=== PATIENT | female | born 1950 | race Caucasian/White ===

== ENCOUNTER 2019-02-14 14:59 | Inpatient (IN) | payer MEDICARE ==
[~2019-02-14] VITALS: Ht 162.6 cm; Wt 56.1 kg
[2019-02-14] VITALS (18 sets, daily range): BP systolic 101–120; BP diastolic 34–50; BMI 34.4
--- NOTE | ~2019-02-14 | OP ---
PATIENT NAME: MAGDALENA ALVAREZ MEDICAL RECORD: [id number] :[birth year] LOCATION:D.M2 D.2138 ADMISSION DATE:02/14/19 SURGEON: CITLALY HUTCHINS MD DATE OF OPERATION: 02/22/2019 PREOPERATIVE DIAGNOSES: 1. End-stage renal disease. 2. Diabetes mellitus. POSTOPERATIVE DIAGNOSES: 1. End-stage renal disease. 2. Diabetes mellitus. PROCEDURE: 1. Left IJ 23-cm HemoSplit catheter placement. 2. Fluoroscopic interpretation. SURGEON: Citlaly Hutchins MD REPORT OF PROCEDURE: The patient's left neck and chest were prepped and draped in sterile fashion. Using ultrasound guidance, a needle was used to cannulate the left internal jugular vein and a guidewire was advanced. Fluoro was used to advance the wire into good position in the venous system. At this point, a skin incision was made in the neck and also at the left lateral chest. The HemoSplit catheter was tunneled between these 2 incision sites. The dilators were placed over the wires using ultrasound guidance followed by the dilator trocar device. The dilator and wire were removed and the catheter tip was advanced through the trocar. Once the trocar was removed, the catheter tip was positioned in the right atrial superior vena caval junction. The catheter aspirated nonpulsatile dark blood and flushed easily with heparinized saline. We then sutured the catheter in with 3-0 nylons and the skin incisions were closed with subcutaneous 5-0 Monocryl. COMPLICATIONS: None. CONDITION: Stable. ANESTHESIA: General endotracheal. BLOOD LOSS: Minimal. TRANSINT:[id number] Voice Confirmation ID: [id number] DOCUMENT ID: [id number] CITLALY HUTCHINS MD CC: [id number] DICTATION DATE: 02/22/19 0848 SENIOR NETWORK ARCHITECT: 02/22/19 1200 ADM IN [facility] [address] [place] [address]
[2019-02-14] MEDS ORDERED: CATAPRES0.2 MG PO (15:06)
[2019-02-14] MEDS ORDERED: ACETAMINOPHEN500 M1 PO (15:06)
[2019-02-14] MEDS ORDERED: COREG6.25 MG PO (15:07)
[2019-02-14] MEDS ORDERED: GABAPENTIN100 MG PO (15:08)
[2019-02-14] MEDS ORDERED: HYDRALAZINE HCL25 MG PO (15:09)
[2019-02-14] MEDS ORDERED: HCTZ25 MG PO (15:09)
[2019-02-14] MEDS ORDERED: HUMULIN R100 U/ML (15:09)
[2019-02-14] MEDS ORDERED: IMODIUM2 MG (15:10)
[2019-02-14] MEDS ORDERED: JARDIANCE10 MG PO (15:10)
[2019-02-14] MEDS ORDERED: ADVIL200 MG PO (15:10)
[2019-02-14] MEDS ORDERED: LANTUS INSULIN10 ML SC (15:11)
[2019-02-14] MEDS ORDERED: LISINOPRIL40 MG PO (15:11)
[2019-02-14] MEDS ORDERED: NORVASC10 MG PO (15:11)
[2019-02-14] MEDS ORDERED: PRAVACHOL20 MG PO (15:12)
[2019-02-14] MEDS ORDERED: VITAMIN D5000 UNIT PO (15:12)
[2019-02-14] MEDS ORDERED: ZOFRAN4 MG PO (15:13)
[2019-02-14 15:51] LABS: HEMATOCRIT 32.6 % (36.0-48.0); HEMOGLOBIN 10.8 g/dL (12-16); MCH 28.1 pg (26.0-34.0); MCHC 33.1 g/dL (31.0-37.0); MCV 84.9 fL (80.0-100.0); MEAN PLATELET VOLUME 10.6 fL (7.4-10.4); PLATELET COUNT 223 10x3/uL (130-400); RBC 3.84 10x6/uL (4.00-5.40); RDW 15.2 % (11.5-14.5); WBC 23.5 10x3/uL (4.8-10.8)
[2019-02-14 15:57] LABS: ALBUMIN 2.5 g/dL (3.4-5.0); ALKALINE PHOSPHATASE 72 U/L (46-116); ALT (SGPT) 22 U/L (10-68); BILIRUBIN - TOTAL 0.21 mg/dL (0.2-1.3); CALC OSMOLALITY 326 mosm/kg (275-300); CALCIUM 7.3 mg/dL (8.5-10.1); CARBON DIOXIDE 10.6 mmol/L (21.0-32.0); CHLORIDE - SERUM 107 mmol/L (98-107); CREATININE - SERUM 8.4 mg/dL (0.6-1.3); GLUCOSE 120 mg/dL (74-106); POTASSIUM - SERUM 4.5 mmol/L (3.5-5.1); SODIUM 140 mmol/L (136-145); UREA NITROGEN 145 mg/dL (7-18); eGFR NON AFRICAN AMERICAN 5 mL/min (90-120)
[2019-02-14 15:58] LABS: APTT 29.3 SECONDS (22.8-39.4); INR 1.39 (0.85-1.17); PROTIME 16.5 SECONDS (11.6-15.0)
[2019-02-14 16:10] LABS: CKMB 1.5 U/L (0.0-3.6); CREATINE KINASE 25 UL (21-215); TROPONIN-I 0.023 ng/mL (0.000-0.060)
[2019-02-14 16:14] LABS: LYMPHOCYTES 8 % (15-50); MONOCYTES 8 % (2-11); NEUTROPHILS 80 % (40-80); PLATELET ESTIMATE NORMAL
--- NOTE | 2019-02-14 17:09 | NUR ---
1600 PT RECIEVED FROM THE ER VIA STRECHER.. LEVOPHED DRIP IS INFUSING AT 5 MCG.. BP IS 120/45 ON ARRIVAL SR ON MONITOR, PT IS AWAKE AND APPROPRIATE IN HER RESPONSES , LOPEZ CATH IS INLACE FROM THE ER, PIV X2 ON THE RIGHT AC NS INFUSING AND LEVOPHED INTO THE RIGHT HAND. VANC IS HANGING TO BE INFUSED.STARTED AT THIS TIME. 1605TITRATING LEVOPHED SEE IV FLOW SHEET 1615 BS 113 NO INSULIIN COVER 1645 ASSESMENT IS COPLETE AND PT IS DOZING EASILY ROUSED,
--- NOTE | 2019-02-14 19:24 | MORECARE ---
CASE MANAGEMENT DISCHARGE SUMMARY PATIENT: MAGDALENA ALVAREZ UNIT: [id number] ADM DATE: 02/14/19 AGE: 68 : 49 SEX: F ROOM/BED: D.2301 AUTHOR: KELLE BARRON PHYSICIAN: REFERRING PHYSICIAN: BENEDICTO CALLAWAY MD DATE OF SERVICE: 02/14/19 Discharge Plan Patient Name: MAGDALENA ALVAREZ Facility: [facility]:[place] : 1950 Planned Disposition: Nursing Facility [facility] Cert Anticipated Discharge Date: Discharge Date: Expected LOS: Initial Reviewer: [email or web address] Initial Review Date: 02/14/2019 Generated: 02/14/19 8:23 pm Patient Name: MAGDALENA ALVAREZ Page 13527 at 1924 All edits/amendments must be made on the electronic document DICTATION DATE: 02/14/191922 INSURANCE INSTRUCTOR: RADHA 02/14/191922 RPT#: [id number] DC DATE: STATUS: ADM IN [facility] [address] [place] [address] END OF REPORT
--- NOTE | 2019-02-14 19:31 | MORECARE ---
CASE MANAGEMENT DISCHARGE SUMMARY PATIENT: MAGDALENA ALVAREZ UNIT: [id number] ADM DATE: 02/14/19 AGE: 68 : 49 SEX: F ROOM/BED: D.2301 AUTHOR: BEATRICE,DOC PHYSICIAN: REFERRING PHYSICIAN: BENEDICTO CALLAWAY MD DATE OF SERVICE: 02/14/19 Discharge Plan Patient Name: MAGDALENA ALVAREZ Facility: [facility]:[place] : 1950 Planned Disposition: Nursing Facility [facility] Cert Anticipated Discharge Date: Discharge Date: Expected LOS: Initial Reviewer: [email or web address] Initial Review Date: 02/14/2019 Generated: 02/14/19 8:30 pm Comments DCP- Discharge Planning Updated by [email or web address]: Bere Cruz on 02/14/19 6:[address] Patient Name: MAGDALENA ALVAREZ Admission Status: ER Accout number: [id number] Admission Date: 02-14-2019 : 1950 Admission Diagnosis: Attending: BENEDICTO CALLAWAY Current LOS: 1 Anticipated DC Date: Planned Disposition: Nursing Facility [facility] Cert Primary Insurance: MEDICARE IP PART B ONLY Discharge Planning Comments: CM met with patient at bedside. Patient states she lives at assisted in [facility] ([place]) and plans to return there upon discharge. NICA completed for [place] Patient denies any discharge needs at this time. CM will continue to follow and assist as needed with discharge planning / needs. Grand Scribe: Bere Cruz DCPIA - Discharge Planning Initial Assessment Updated by [email or web address]: Bere Cruz on 02/14/19 7:24 pm * Preadmission Environment [facility] * Facility Name [facility]. Mailing Address: [address] [place] [address]. Phone Number?: ?[phone] * ADLs Partial Dependent * List name and contact numbers for known caregivers / representatives who currently or will assist patient after discharge: IJEOMA BENITEZ - GRAND-DAUGHTER- [phone] * Verbal permission to speak to the caregivers and representatives has been obtained from the patient. N/A * Additional services required to return to the preadmission environment? No * Can the patient safely return to the preadmission environment? Yes * Has this patient been hospitalized within the prior 30 days at any hospital? No Last DP export: 02/14/19 6:24 p Patient Name: MAGDALENA ALVAREZ Page 61499 at 1931 All edits/amendments must be made on the electronic document DICTATION DATE: 02/14/191929 MEDICAL TRANSCRIPTIONIST: RADHA 02/14/191929 RPT#: [id number] DC DATE: STATUS: ADM IN [facility] [address] [place] [address] END OF REPORT
--- NOTE | 2019-02-14 20:06 | NUR ---
PATIENT AWAKE AND ALERT ABLE TO VOICE NEEDS AND WANTS TO STAFF. IV IN PLACE AND PATEN WITH NS AT 125 ML/HR. TELEMETRY IN PLACE. V/S 105/39, P 77, R 18. O2 98% ON RA. CONSULT ON CHART FOR DR. DUONG OFFICE CALLED , RETRUN FROM DR. FORTE ROTARY SOIL STABILIZER AND RETRUNED WENT OVER LABS NEW ORDER FOR ONE [id number]. D5W WITH 150 BICARB AT 125 PATIENT IN FORMED PHARMACY CALLED ORDER PLACED AWATTING FLUIDS.
--- NOTE | 2019-02-14 23:11 | NUR ---
PATIENT RESTING IN BED RESP. EVEN AND UNLABORED, WATER AND CALL LIGHT IN REACH. SIDE RAILS UP X 2. IV IN RIGHT AC PATIENT , IV IN RIGHT HAND PATIENT WITH D5W WITH SODIUM BICARBONATE AT 125. SCD'S IN PLACE.
[2019-02-15] VITALS (26 sets, daily range): BP systolic 87–166; BP diastolic 34–64; BMI 34.3
--- NOTE | 2019-02-15 01:15 | NUR ---
RESTING IN BED NO S/S OF DISTRESS. SCANT AMOUNT OF LIQUID STOOL IN BEDPAN. STATED NO FUTHER NEEDS.
--- NOTE | 2019-02-15 03:07 | NUR ---
RESTING IN BED WITH NO NEEDS NOTED OR STATED NO S/S OF DISTRESS. CALL LIGHT IN REACH.
[2019-02-15 04:23] LABS: BASOPHILS 0 % (0-2); EOSINOPHILS 0.1 % (0-7); HEMATOCRIT 29.2 % (36.0-48.0); HEMOGLOBIN 9.7 g/dL (12-16); IMMATURE GRANULOCYTES 0.3 % (0-5); LYMPHOCYTES 4.3 % (15-50); MCH 27.8 pg (26.0-34.0); MCHC 33.2 g/dL (31.0-37.0); MCV 83.7 fL (80.0-100.0); MEAN PLATELET VOLUME 10.4 fL (7.4-10.4); MONOCYTES 9.8 % (2-11); NEUTROPHILS 85.5 % (40-80); PLATELET COUNT 199 10x3/uL (130-400); RBC 3.49 10x6/uL (4.00-5.40); RDW 15.3 % (11.5-14.5)
[2019-02-15 04:27] LABS: WBC 17.4 10x3/uL (4.8-10.8)
[2019-02-15 04:48] LABS: ALBUMIN 2.2 g/dL (3.4-5.0); ANION GAP 24.8 mmol/L (8-16); BILIRUBIN - TOTAL 0.2 mg/dL (0.2-1.3); CALCIUM 7.3 mg/dL (8.5-10.1); CREATININE - SERUM 8.9 mg/dL (0.6-1.3); MAGNESIUM - SERUM 1.6 mg/dL (1.8-2.4); POTASSIUM - SERUM 4.2 mmol/L (3.5-5.1); PROTEIN - SERUM 6.3 g/dL (6.4-8.2); URIC ACID 10.1 mg/dL (2.6-7.2)
[2019-02-15 04:53] LABS: CARBON DIOXIDE 13.4 mmol/L (21.0-32.0); PHOSPHOROUS 10.5 mg/dL (2.5-4.9)
--- NOTE | 2019-02-15 05:09 | NUR ---
LAB CALLED WITH PHOSPHORUS LEVEL OF 10.[address] PHILLIP, CLOUD OPERATIONS ENGINEER VIJAYA SESAY RETRUNED STATED TO CALL RENAL DR DUONG OR KISHA AT ABOUT 0630AM TO INFORM WITH NO NEW ORDERS AT THIS TIME.
--- NOTE | 2019-02-15 05:52 | NUR ---
RESTING IN BED FOR BEDPAN AND WAS ASSISTED ON.
--- NOTE | 2019-02-15 07:00 | NUR ---
DR. BEARD IN THIS AM ADDRESSED PHOSPHORUS 10.5 VERABLE ORDER TO DECREAS D5W WITH SODIUM BICARBONTE FROM 125ML/HR TO 50ML/HR FLUIDS DECREASED.
[2019-02-15 09:43] LABS: % SATURATION 27 % (15-55); IRON 47 ug/dl (35-150); TOTAL IRON BIND CAPACITY 173 ug/dl (260-445); UNSAT IRON BIND CAPACITY 126 ug/dl (150-375)
[2019-02-15 09:54] LABS: CHOL - HDL RATIO 3.1 ratio (2.3-4.1); LDL-HDL RATIO 1.4 ratio (1.5-3.5); VANCOMYCIN - RANDOM 14.2 ug/mL (10.0-20.0)
--- NOTE | 2019-02-15 10:12 | NUR ---
0800 AM ASSESMENT IS COMPLETE SEE FLOW SHEET FOR FINDINGS.. PT IS EASILY ROUSED THERE AND APPROPRIATE IN HER RESPONSES.. DR BEARD IN TO SEE PT.. 0815 US OF ABDOMEN AT BEDSIDE 0830 PT REQUEST BEDPAN ULTRASOUND CONTINUES 0845 LIQUID BRYSON STOOL IN BEDPAN, CHG BATH GIVEN AND STOOL SPECIMEN SENT TO LAB 0900 MEDS GIVEN 0945 PT IS HARDED TO ROUSE BUT SHE IS APPROPRIATE IN RESPONSES, NIECE CALLED AND UPDATE GIVEN..
--- NOTE | 2019-02-15 12:36 | NUR ---
1020 FSBS DONE 2 UNITS COVERAGE 1130 PT IS MORE AWAKE, DR CALLAWAY IN TO SEE PT [address] SCAN VIA BED [address] SCAN
[2019-02-15 13:17] LABS: APPEARANCE CLEAR (CLEAR); BILIRUBIN NEGATIVE (NEGATIVE); COLOR STRAW (YELLOW); GLUCOSE 250 mg/dL (NEGATIVE); KETONE NEGATIVE (NEGATIVE); NITRITE NEGATIVE (NEGATIVE); PROTEIN 1+ mg/dL (NEGATIVE); UROBILINOGEN NORMAL (NORMAL)
[2019-02-15 13:19] LABS: BACTERIA MANY /hpf (NONE SEEN); RED CELLS - URINE 0-5 /hpf (0-5); YEAST >1+ /hpf (NONE SEEN)
[2019-02-15 13:20] LABS: AMORPHOUS SEDIMENT >1+ /lpf (NONE SEEN); HYALINE CAST 0-5 /lpf (NONE SEEN); MUCUS <1+ /lpf (NONE SEEN)
--- NOTE | 2019-02-15 13:27 | NUR ---
1245 REQUEST BEDPAN 1300 100 CC LIQUID BROWN STOOL, REPOSITIONED 1315 WITHOUT CHANGES
--- NOTE | 2019-02-15 13:31 | NUR ---
1315 LAB HERE URINE OBTAINED FROM LOPEZ FOR UA
--- NOTE | 2019-02-15 17:35 | NUR ---
1500 DR HUTCHINS HERE , PERMIT OBATAINED FROM PATIENT FOR TRIALYSIS CATHETER PLACEMENT.. 1545 TRULYSIS CATH PLACED INTO RIGHT IJ PT TOLERATED WELL CXR DONE.. 1630 FSBS DONE WITHOUT INSULIN COVER.. 1720 DIALYSIS STAFF HERE SETTING UP PATIENT FOR TX..
--- NOTE | 2019-02-15 18:27 | NUR ---
182 DIALYSIS IN PROGRESS AT THE BEDSIDE DIET SERVED AND PT FED SELF WITHOUT DIFFICULTY
--- NOTE | 2019-02-15 19:30 | NUR ---
REPORT REC'D AND CARE ASSUMED, REC'D PT ON DIALYSIS VIA RIGHT IJ TRIALYSIS, PT AWAKE, ALERT, AND ORIENTED ON ROOM AIR, RIGHT HAND PIV WITH D5W WITH 3 AMPS SODIUM BICARB @ 50CC/HR AND RIGHT A/C SALINE LOCKED AT THIS TIME, GENERALIZED EDEMA, PT DENIES PAIN AT THIS TIME, LOPEZ PATENT DRAINING CLEAR YELLOW URINE, PPP, SR UP X 2, BED IN LOW POSITION, CALL LIGHT IN REACH.
--- NOTE | 2019-02-15 19:40 | NUR ---
PT PLACED ON BEDPAN, CALL LIGHT IN REACH, DIALYSIS IN PROGRESS
--- NOTE | 2019-02-15 20:00 | NUR ---
PT REMOVED FROM BEDPAN, LARGE LIQUID BM NOTED, PARTIAL LINEN CHANGE PROVIDED, PT REPOSITIONED UP IN BED FOR COMFORT, PT DENIES FURTHER NEEDS, CALL LIGHT IN REACH.
--- NOTE | 2019-02-15 21:15 | NUR ---
FSBS 131, PT DOZING AT INTERVALS, BP STABLE, CM-SR, WILL MONITOR CLOSELY FOR CHANGES.
--- NOTE | 2019-02-15 23:00 | NUR ---
REASSESSMENT COMPLETED, PT RESTING EYES CLOSED MOANING REPEATEDLY, AWAKENS EASILY DENIES PAIN OR NEEDS, BP STABLE, WILL CONTINUE TO MONITOR FOR CHANGES.
[2019-02-16] VITALS (24 sets, daily range): BP systolic 96–179; BP diastolic 42–69
--- NOTE | 2019-02-16 01:20 | NUR ---
PT MOANING WHEN CHECKED ON PT STATES "I NEED TO BE CLEANED UP", PT INCONTINENT OF LARGE LIQUID BROWN STOOL, COMPLETE CHG BATH GIVEN AND LINENS CHANGED, BUTTOCKS WITH PURPLE BLANCHABLE AREA, PT ENCOURAGED TO TURN IN BED, REPOSITIONED PT UP AND ONTO RIGHT SIDE SUPPORTED WITH PILLOW, SCDS REMOVED FOR BREAK, PT COMPLAINS OF PAIN ALL OVER, TYLENOL 650 GIVEN PO FOR DISCOMFORT, VSS, SR UP X 2, BED IN LOW POSITION, CALL LIGHT IN REACH.
--- NOTE | 2019-02-16 03:15 | NUR ---
PT PLACED ON BEDPAN PER REQUEST, CALL LIGHT IN REACH.
--- NOTE | 2019-02-16 03:35 | NUR ---
PT REMOVED FROM BEDPAN, PT HAD SMALL LIQUID GREEN STOOL, PERICARE PROVIDED AND PT REPOSITIONED ONTO BACK FOR COMFORT, DENIES FURTHER NEEDS.
--- NOTE | 2019-02-16 05:30 | NUR ---
AM LAB DRAWN FROM NURSES PORT ON TRIALYSIS AND SENT TO LAB
[2019-02-16 05:45] LABS: MAGNESIUM - SERUM 1.5 mg/dL (1.8-2.4)
[2019-02-16 05:48] LABS: PHOSPHOROUS 6.5 mg/dL (2.5-4.9)
--- NOTE | 2019-02-16 06:00 | NUR ---
PT REQUESTING BEPAN, PLACED ON BEDPAN, CALL LIGHT IN REACH
--- NOTE | 2019-02-16 06:15 | NUR ---
PT REMOVED FROM BEDPAN, LARGE LIQUID GREEN STOOL NOTED, PT CLEANED AND REPOSITIONED FOR COMFORT, PT DENIES FURTHER NEEDS.
[2019-02-16 08:43] LABS: BASOPHILS 0.1 % (0-2); EOSINOPHILS 0.3 % (0-7); HEMATOCRIT 26.2 % (36.0-48.0); HEMOGLOBIN 8.9 g/dL (12-16); IMMATURE GRANULOCYTES 0.7 % (0-5); LYMPHOCYTES 5.9 % (15-50); MCH 27.7 pg (26.0-34.0); MEAN PLATELET VOLUME 10.9 fL (7.4-10.4); MONOCYTES 11.1 % (2-11); NEUTROPHILS 81.9 % (40-80); PLATELET COUNT 189 10x3/uL (130-400); RBC 3.21 10x6/uL (4.00-5.40); RDW 14.9 % (11.5-14.5); WBC 17.5 10x3/uL (4.8-10.8)
[2019-02-16 08:44] LABS: ANION GAP 15.1 mmol/L (8-16); CALCIUM 7.5 mg/dL (8.5-10.1); CARBON DIOXIDE 24.2 mmol/L (21.0-32.0); CREATININE - SERUM 5.5 mg/dL (0.6-1.3); MCV 81.6 fL (80.0-100.0); POTASSIUM - SERUM 3.3 mmol/L (3.5-5.1)
[2019-02-16 09:12] LABS: FOLATE (FOLIC ACID) - SERUM 4.6 ng/mL (>3.0)
--- NOTE | 2019-02-16 13:24 | NUR ---
HD IN PROGRESS. PT PATRICIA WELL.
--- NOTE | 2019-02-16 14:06 | NUR ---
HD COMPLETE. VSS.
--- NOTE | 2019-02-16 16:04 | NUR ---
STILL WAITING ON Cursogram. CALM AND COOPERATIVE. WATCHING TV
--- NOTE | 2019-02-16 19:15 | NUR ---
RECEIVED CARE OF PT, ASSESSMENT PER FLOWSHEET. HR SR WITH OCC PAC'S ON MONITOR, LOPEZ CATH PATENT, PPP. PT POSITIONED FOR COMFORT SUPPORTED WITH PILLOWS, BED LOW, SR UP X 2.
--- NOTE | 2019-02-16 21:00 | NUR ---
OFF BEDPAN PER PT REQUEST, PERICARE PROVIDED, VOIDED 250 CC OF LIQUID GREEN STOOL. POSITIONED FOR COMFORT SUPPORTED WITH PILLOWS, CALL LIGHT IN REACH.
--- NOTE | 2019-02-16 23:00 | NUR ---
REASSESSMENT PER FLOWSHEET, NO ACUTE CHANGES NOTED AT THIS TIME, PT DENIES ANY NEEDS, POSITIONED FOR COMFORT SUPPORTED WITH PILLOWS, VSS.
[2019-02-17] VITALS (24 sets, daily range): BP systolic 136–190; BP diastolic 45–112
--- NOTE | 2019-02-17 00:43 | NUR ---
PT RESTING IN BED WITH EYES CLOSED, VSS.
--- NOTE | 2019-02-17 01:00 | NUR ---
REPORT REC'D AND CARE ASSUMED, REC'D PT RESTING EYES CLOSED, RESP EVEN AND UNLABORED, BP STABLE, 3 WAY SUPRAPUBIC CATHETER WITH NS IRRIGATION AT A DRIP RATE TO KEEP URINE LIGHT PINK IN COLOR, BILAT SCDS, RIGHT UPPER ARM PIV WITH LR @ 125CC/HR, LDLSCL DRSG CDI WITH PORTS SALINE LOCKED, PT DENIES PAIN OR NEEDS AT THIS TIME, SR UP X 2 , CALL LIGHT IN REACH.
--- NOTE | 2019-02-17 02:00 | NUR ---
PT REQUESTING BEDPAN, PLACED ON BEDPAN CALL LIGHT IN REACH.
--- NOTE | 2019-02-17 02:20 | NUR ---
PT REMOVED FROM BEDPAN, LIQUID BROWN STOOL NOTED, PERICARE GIVEN AND PT REPOSITIONED FOR COMFORT, PT DENIES FURTHER NEEDS, CALL LIGHT IN REACH.
--- NOTE | 2019-02-17 03:00 | NUR ---
REASSESSMENT COMPLETED, NO CHANGES FROM PREVIOUS ASSESSMENT, PT RESTING QUIETLY IN BED WATCHING TV, WILL MOINITOR CLOSELY FOR CHANGES.
--- NOTE | 2019-02-17 05:15 | NUR ---
AM LAB DRAWN FROM [facility] AND SENT TO LAB
[2019-02-17 07:05] LABS: ANION GAP 11.6 mmol/L (8-16); CALCIUM 8.1 mg/dL (8.5-10.1); CARBON DIOXIDE 29.8 mmol/L (21.0-32.0); MAGNESIUM - SERUM 1.8 mg/dL (1.8-2.4); POTASSIUM - SERUM 3.4 mmol/L (3.5-5.1); VANCOMYCIN - RANDOM 15.8 ug/mL (10.0-20.0)
[2019-02-17 07:11] LABS: CREATININE - SERUM 3.9 mg/dL (0.6-1.3); PHOSPHOROUS 4.2 mg/dL (2.5-4.9)
--- NOTE | 2019-02-17 11:18 | NUR ---
PT C/0 L WRIST BEING SWOLLEN. REPORTED FINDING TO DR CALLAWAY. DR CALLAWAY CAME TO BED SIDE AND ASSESSED.
--- NOTE | 2019-02-17 12:12 | NUR ---
PT TO CT FOR CT LUE. DR DUONG HERE.
--- NOTE | 2019-02-17 18:42 | NUR ---
BP 175/85. REPORTED TO DR CALLAWAY AND REC'D NEW MED ORDERS.
--- NOTE | 2019-02-17 19:50 | NUR ---
ASSISTED PT ONTO BEDPAN, VOIDED SMALL AMT OF LIQUID GREEN STOOL. PERICARE PROVIDED.
--- NOTE | 2019-02-17 21:46 | NUR ---
HS SNACK PROVIDED PER REQUEST, PT DENIES ANY OTHER NEEDS AT THIS TIME.
--- NOTE | 2019-02-17 23:14 | NUR ---
DR CALLAWAY CALLED REGARDING PT RHYTHM CHANGE TO ATRIAL FIB AT A RATE OF 80'S TO 90'S. NO ORDERS RECEIVED AT THIS TIME.
[2019-02-18] VITALS (24 sets, daily range): BP systolic 131–183; BP diastolic 47–84; Ht 162.6 cm; Wt 56.1 kg
--- NOTE | 2019-02-18 02:24 | NUR ---
DR CALLAWAY NOTIFIED OF ELEVATED BP'S, NO FURTHER ORDERS RECEIVED AT THIS TIME. WILL CONT POC
--- NOTE | 2019-02-18 03:00 | NUR ---
REASSESSMENT PER FLOWSHEET, PT POSITIONED FOR COMFORT SUPPORTED WITH PILLOWS.
--- NOTE | 2019-02-18 05:00 | NUR ---
PT C/O NAUSEA, PRN ZOFRAN 4 MG ADMINISTERED VIA SIVP PER MD ORDER.
[2019-02-18 05:47] LABS: MAGNESIUM - SERUM 1.7 mg/dL (1.8-2.4); PHOSPHOROUS 5.6 mg/dL (2.5-4.9)
[2019-02-18 06:23] LABS: ALBUMIN 1.9 g/dL (3.4-5.0); ANION GAP 17.3 mmol/L (8-16); BILIRUBIN - TOTAL 0.32 mg/dL (0.2-1.3); CARBON DIOXIDE 28.2 mmol/L (21.0-32.0); CREATININE - SERUM 4.1 mg/dL (0.6-1.3); POTASSIUM - SERUM 3.5 mmol/L (3.5-5.1); PROTEIN - SERUM 5.7 g/dL (6.4-8.2)
--- NOTE | 2019-02-18 08:41 | NUR ---
Nutrition follow-up: Diet: Renal ADA PO intake poor at this time due to N/V/D labs reviewed Wt: 232# Holding dialysis today RDN following.
--- NOTE | 2019-02-18 17:52 | MORECARE ---
CASE MANAGEMENT DISCHARGE SUMMARY PATIENT: MAGDALENA ALVAREZ UNIT: [id number] ADM DATE: 02/14/19 AGE: 68 : 49 SEX: F ROOM/BED: D.2301 AUTHOR: BEATRICE,DOC PHYSICIAN: REFERRING PHYSICIAN: BENEDICTO CALLAWAY MD DATE OF SERVICE: 02/18/19 Discharge Plan Patient Name: MAGDALENA ALVAREZ Facility: [facility]:[place] : 1950 Planned Disposition: Nursing Facility [facility] Cert Anticipated Discharge Date: Discharge Date: Expected LOS: Initial Reviewer: [email or web address] Initial Review Date: 02/14/2019 Generated: 02/18/19 6:52 pm Comments DCP- Discharge Planning Updated by [email or web address]: Bere Cruz on 02/18/19 4:[address] CM notified Mariah Mina via email of new patient starting hemodialysis and that patient is resident at [facility] in [facility]. CM will continue to follow and assist as needed with discharge planning / needs. DCP- Discharge Planning Updated by [email or web address]: Bere Cruz on 02/14/19 6:[address] Patient Name: MAGDALENA ALVAREZ Admission Status: ER Accout number: [id number] Admission Date: 02-14-2019 : 1950 Admission Diagnosis: Attending: BENEDICTO CALLAWAY Current LOS: 1 Anticipated DC Date: Planned Disposition: Nursing Facility [facility] Cert Primary Insurance: MEDICARE IP PART B ONLY Discharge Planning Comments: CM met with patient at bedside. Patient states she lives at residential in [facility]. ([place]) and plans to return there upon discharge. NICA completed for [place] Patient denies any discharge needs at this time. CM will continue to follow and assist as needed with discharge planning / needs. Frickertron Checker: Bere Cruz DCPIA - Discharge Planning Initial Assessment Updated by [id number]: Bere Cruz on 02/14/19 7:24 pm * Preadmission Environment Security Program Manager Detention * Facility Name [facility]. Mailing Address: [address] [place] [address]. Phone Number?: ?[phone] * ADLs Partial Dependent * List name and contact numbers for known caregivers / representatives who currently or will assist patient after discharge: IJEOMA BENITEZ - GRAND-DAUGHTER- [phone] * Verbal permission to speak to the caregivers and representatives has been obtained from the patient. N/A * Additional services required to return to the preadmission environment? No * Can the patient safely return to the preadmission environment? Yes * Has this patient been hospitalized within the prior 30 days at any hospital? No Last DP export: 02/14/19 6:31 p Patient Name: MAGDALENA ALVAREZ Page 49418 at 1752 All edits/amendments must be made on the electronic document DICTATION DATE: 02/18/191751 BRICK TESTER: RADHA 02/18/191751 RPT#: [id number] DC DATE: STATUS: ADM IN [facility] [address] [place] [address] END OF REPORT
--- NOTE | 2019-02-18 23:00 | NUR ---
Reassessment completed per flowsheet, no changes noted from previous assessment. Patient denies pain or other needs at this time, see flowsheet for details. All VSS and will continue to monitor.
[2019-02-19] VITALS (16 sets, daily range): BP systolic 135–185; BP diastolic 50–88
[2019-02-19 06:42] LABS: BASOPHILS 0.2 % (0-2); EOSINOPHILS 2.6 % (0-7); HEMATOCRIT 32.2 % (36.0-48.0); HEMOGLOBIN 10.1 g/dL (12-16); IMMATURE GRANULOCYTES 5.2 % (0-5); LYMPHOCYTES 11.1 % (15-50); MCH 27.5 pg (26.0-34.0); MCHC 31.4 g/dL (31.0-37.0); MCV 87.7 fL (80.0-100.0); MEAN PLATELET VOLUME 10.4 fL (7.4-10.4); MONOCYTES 13.4 % (2-11); NEUTROPHILS 67.5 % (40-80); PLATELET COUNT 201 10x3/uL (130-400); RBC 3.67 10x6/uL (4.00-5.40); WBC 10.1 10x3/uL (4.8-10.8)
[2019-02-19 06:55] LABS: CALCIUM 8.6 mg/dL (8.5-10.1); CREATININE - SERUM 4.6 mg/dL (0.6-1.3); MAGNESIUM - SERUM 2.1 mg/dL (1.8-2.4); PHOSPHOROUS 5.8 mg/dL (2.5-4.9); VANCOMYCIN - RANDOM 18.2 ug/mL (10.0-20.0)
--- NOTE | 2019-02-19 10:19 | NUR ---
0700 UP ON BEDPAN THICK LIQUIDE GREEN BM NOTED ASSESSMENT COMPLETE
--- NOTE | 2019-02-19 10:25 | NUR ---
0900 IN BED WATCHNG TV WITHOUT COMPLAINTS REMAINS ON 2L /NC O2 SAT 97%
[2019-02-19 12:11] LABS: HEPATITIS C ANTIBODY <0.1 S/CO RAT (0.0-0.9)
--- NOTE | 2019-02-19 13:40 | NUR ---
1100 PHYSICAL THERAPY AT BEDSIDE TO ASSIST WITH DANGLE ASKING FOR BEDPAN SM THICK LIQUIDBM NOTED BUTT PASTE APPLIED TO BUTTOCKS
--- NOTE | 2019-02-19 13:43 | NUR ---
1300 APPETITE POOR RREPOSITIIONED IN BED CALL LIGHT IN REACH WATCHING TV
--- NOTE | 2019-02-19 13:44 | NUR ---
1330 TRANSPORTED TO DIALYSIS UNIT VIA BED AND WEARING O2 AT 2L/NC.
--- NOTE | 2019-02-19 15:11 | MORECARE ---
CASE MANAGEMENT DISCHARGE SUMMARY PATIENT: MAGDALENA ALVAREZ UNIT: [id number] ADM DATE: 02/14/19 AGE: 68 : [birth year] SEX: F ROOM/BED: D.2301 AUTHOR: BEATRICE,DOC PHYSICIAN: REFERRING PHYSICIAN: BENEDICTO CALLAWAY MD DATE OF SERVICE: 02/19/19 Discharge Plan Patient Name: MAGDALENA ALVAREZ Facility: [facility]:[place] : 1950 Planned Disposition: Nursing Facility [facility] Cert Anticipated Discharge Date: Discharge Date: Expected LOS: Initial Reviewer: [email or web address] Initial Review Date: 02/14/2019 Generated: 02/19/19 4:10 pm Comments DCP- Discharge Planning Updated by [email or web address]: Bere Cruz on 02/18/19 4:[address] CM notified Mariah Mina via email of new patient starting hemodialysis and that patient is resident at [facility] in [facility]. CM will continue to follow and assist as needed with discharge planning / needs. DCP- Discharge Planning Updated by [email or web address]: Bere Cruz on 02/14/19 6:[address] Patient Name: MAGDALENA ALVAREZ Admission Status: ER Accout number: [id number] Admission Date: 02-14-2019 : 1950 Admission Diagnosis: Attending: BENEDICTO CALLAWAY Current LOS: 1 Anticipated DC Date: Planned Disposition: Nursing Facility [facility] Cert Primary Insurance: MEDICARE IP PART B ONLY Discharge Planning Comments: CM met with patient at bedside. Patient states she lives at halfway in [facility]. ([place]) and plans to return there upon discharge. NICA completed for [place] Patient denies any discharge needs at this time. CM will continue to follow and assist as needed with discharge planning / needs. Steel Turner: Bere Cruz DCPIA - Discharge Planning Initial Assessment Updated by [email or web address]: Bere Cruz on 02/14/19 7:24 pm * Preadmission Environment Supervisor Film Processing Skilled Nursing * Facility Name [facility]. Mailing Address: [address] [place] [address]. Phone Number?: ?[phone] * ADLs Partial Dependent * List name and contact numbers for known caregivers / representatives who currently or will assist patient after discharge: IJEOMA BENITEZ - GRAND-DAUGHTER- [phone] * Verbal permission to speak to the caregivers and representatives has been obtained from the patient. N/A * Additional services required to return to the preadmission environment? No * Can the patient safely return to the preadmission environment? Yes * Has this patient been hospitalized within the prior 30 days at any hospital? No External Providers External Provider: OTHER-OTHER Next Contact Date: Service Request Date: Service Type: Resolution: Reviewer: Comments: Last DP export: 02/18/19 4:52 p Patient Name: MAGDALENA ALVAREZ Page [id number] at 1511 All edits/amendments must be made on the electronic document DICTATION DATE: 02/19/191509 SENIOR FINANCIAL ACCOUNTANT: RADHA 02/19/191509 RPT#: [id number] MT DATE: STATUS: ADM IN [facility] [address] [place] [address] END OF REPORT
--- NOTE | 2019-02-19 15:18 | MORECARE ---
CASE MANAGEMENT DISCHARGE SUMMARY PATIENT: MAGDALENA ALVAREZ UNIT: [id number] ADM DATE: 02/14/19 AGE: 68 : [birth year] SEX: F ROOM/BED: D.2301 AUTHOR: BEATRICE,DOC PHYSICIAN: REFERRING PHYSICIAN: BENEDICTO CALLAWAY MD DATE OF SERVICE: 02/19/19 Discharge Plan Patient Name: MAGDALENA ALVAREZ Facility: [facility]:[place] : 1950 Planned Disposition: Nursing Facility [facility] Anticipated Discharge Date: Discharge Date: Expected LOS: Initial Reviewer: [email or web address] Initial Review Date: 02/14/2019 Generated: 02/19/19 4:18 pm Comments DCP- Discharge Planning Updated by [id number]: Bere Cruz on 02/19/19 2:[address] CM contacted [facility] in [facility] [phone] . CM informed staff that patient has been started on dialysis since she has been admitted. CM asked if they currently have any dialysis patients or if they accept dialysis patients. Staff replied that they currently don't have any dialysis patients. She requested for CM to fax records and she will have cyber systems administrator look them over and call back tomorrow after review. CM will continue to follow and assist as needed with discharge planning / needs. DCP- Discharge Planning Updated by [email or web address]: Bere Cruz on 02/18/19 4:[address] CM notified Mariah Mina via email of new patient starting hemodialysis and that patient is resident at [facility] in [facility]. CM will continue to follow and assist as needed with discharge planning / needs. DCP- Discharge Planning Updated by [email or web address]: Bere rCuz on 02/14/19 6:[address] Patient Name: MAGDALENA ALVAREZ Admission Status: ER Accout number: [id number] Admission Date: 02-14-2019 : 1950 Admission Diagnosis: Attending: BENEDICTO CALLAWAY Current LOS: 1 Anticipated DC Date: Planned Disposition: Nursing Facility [facility] Primary Insurance: MEDICARE IP PART B ONLY Discharge Planning Comments: CM met with patient at bedside. Patient states she lives at longterm in [facility]. ([place]) and plans to return there upon discharge. NICA completed for [place] Patient denies any discharge needs at this time. CM will continue to follow and assist as needed with discharge planning / needs. Store Operations Associate: Bere GARCÍA - Discharge Planning Initial Assessment Updated by [email or web address]: Bere Cruz on 02/14/19 7:24 pm * Preadmission Environment Materials Handling Equipment Operator Custodial * Facility Name [facility]. Mailing Address: [address] [place] [address]. Phone Number?: ?[phone] * ADLs Partial Dependent * List name and contact numbers for known caregivers / representatives who currently or will assist patient after discharge: IJEOMA DON-DAUGHTER- [phone] * Verbal permission to speak to the caregivers and representatives has been obtained from the patient. N/A * Additional services required to return to the preadmission environment? No * Can the patient safely return to the preadmission environment? Yes * Has this patient been hospitalized within the prior 30 days at any hospital? No Last DP export: 02/19/19 2:11 p Patient Name: MAGDALENA ALVAREZ Page [id number] at 1518 All edits/amendments must be made on the electronic document DICTATION DATE: 02/19/191517 INTERNATIONAL MARKETING EXECUTIVE: RADHA 02/19/191517 RPT#: [id number] DC DATE: STATUS: ADM IN [facility] [address] [place] [address] END OF REPORT
--- NOTE | 2019-02-19 17:20 | NUR ---
RECEIVED FROM ICU TRANSFER AT THIS TIME. SHE HAS COMPLETED DIALYSIS TODAY. SHE IS ALERT TO NAME CONFUSED TO TIME AND PLACE BUT EASILY REORIENTED. RESP EVEN WITHOUT LABOR O2 ON AT 2L/M PER N/C. SCD'S ARE ON. BBS ARE CLEAR. ABDOMEN SOFT WITH BS X4 QUADS. F/C PATENT WITH YELLOW URINE DRAINING. SHE HAS BRUISE TO LEFT A/C. SALINE LOCK TO RIGHT HAND ABOVE HER THUMB, SITE IS CLEAR. SHE HAS RIGHT TRIALYSIS USED FOR DIALYSIS. GLASSES ARE ON. SHE GRUNTS ON AND OFF BUT DENIES PAIN, IT APPEARS TO BE MORE OF A HABIT. SHE WAS SIT UP AND BEGIN FEEDING SELF SUPPER. ORIENT TO USE OF CALL LIGHT. TOTAL CARE PT. HER COCCYX HAS SOME OLD SCARS AND DRY SKIN IN PLACES BUT IT BLANCHES.
--- NOTE | 2019-02-19 18:30 | NUR ---
VANCOMYCIN IV STARTED AT THIS TIME. MED GIVEN. APICAL HR OF 70 AT THIS TIME. SHE IS ALERT AND DENIES ANY NEEDS. CL IN REACH
--- NOTE | 2019-02-19 19:08 | NUR ---
PT IN BED. DENIES NEEDS AT THIS TIME.
[2019-02-20] VITALS: BP 165/91
[2019-02-20 04:00] VITALS: BP 146/68
[2019-02-20 06:13] LABS: ANION GAP 13.3 mmol/L (8-16); CALCIUM 8.4 mg/dL (8.5-10.1); CARBON DIOXIDE 29.2 mmol/L (21.0-32.0); CREATININE - SERUM 3.6 mg/dL (0.6-1.3); MAGNESIUM - SERUM 2.1 mg/dL (1.8-2.4); PHOSPHOROUS 5.1 mg/dL (2.5-4.9); POTASSIUM - SERUM 3.5 mmol/L (3.5-5.1); VANCOMYCIN - RANDOM 29.5 ug/mL (10.0-20.0)
[2019-02-20 07:24] LABS: BASOPHILS 0.3 % (0-2); EOSINOPHILS 2.5 % (0-7); HEMATOCRIT 31.3 % (36.0-48.0); HEMOGLOBIN 9.9 g/dL (12-16); IMMATURE GRANULOCYTES 4.3 % (0-5); LYMPHOCYTES 13.9 % (15-50); MCH 27.7 pg (26.0-34.0); MCHC 31.6 g/dL (31.0-37.0); MCV 87.7 fL (80.0-100.0); MEAN PLATELET VOLUME 10.7 fL (7.4-10.4); MONOCYTES 15.8 % (2-11); NEUTROPHILS 63.2 % (40-80); PLATELET COUNT 184 10x3/uL (130-400); RBC 3.57 10x6/uL (4.00-5.40); RDW 13.7 % (11.5-14.5); WBC 10.2 10x3/uL (4.8-10.8)
--- NOTE | 2019-02-20 07:32 | NUR ---
ALERT AND ORIENTED. NO DISTRESS NOTED. CL IN REACH.
[2019-02-20 09:47] VITALS: BP 208/67
--- NOTE | 2019-02-20 10:36 | NUR ---
HAVE REQUESTED PROCRIT FROM PHARMACY X2. NONE ON UNIT.
--- NOTE | 2019-02-20 11:52 | NUR ---
chambers cath dc' per order. no difficulty removing.
--- NOTE | 2019-02-20 17:28 | NUR ---
NO CHANGE IN ASSESSMENT. EATING DINNER. CL IN REACH. NO DISTRESS NOTED.
--- NOTE | 2019-02-20 19:00 | NUR ---
PATIENT LAYING IN BED. PATIENT STATES SHE HAD A BOWEL MOVEMENT AND NEEDED CLEANED UP. PATIENT HAD A LARGE AMOUNT OF GREEN/YELLOW DIARRHEA. BEDDING CHANGED AND PATIENT CLEANED. NO OTHER COMPLAINTS AT THIS TIME. NO DISTRESS NOTED.
[2019-02-20 20:00] VITALS: BP 171/68
--- NOTE | 2019-02-20 23:30 | NUR ---
PATIENT LAYING IN BED. EYES CLOSED, CHEST RISING AND FALLING. NO DISTRESS NOTED.
[2019-02-21 00:20] VITALS: BP 154/62
--- NOTE | 2019-02-21 04:25 | NUR ---
I have reviewed this patient and I concur with the Shift Assessment completed by the Licensed Practical Nurse today this shift.
[2019-02-21 04:30] VITALS: BP 173/60
[2019-02-21 06:22] LABS: BASOPHILS 0.2 % (0-2); HEMATOCRIT 31.3 % (36.0-48.0); HEMOGLOBIN 9.8 g/dL (12-16); IMMATURE GRANULOCYTES 3.9 % (0-5); LYMPHOCYTES 13.8 % (15-50); MCH 27.3 pg (26.0-34.0); MCHC 31.3 g/dL (31.0-37.0); MCV 87.2 fL (80.0-100.0); MEAN PLATELET VOLUME 10.4 fL (7.4-10.4); MONOCYTES 11.9 % (2-11); NEUTROPHILS 66.2 % (40-80); PLATELET COUNT 171 10x3/uL (130-400); RBC 3.59 10x6/uL (4.00-5.40); RDW 13.9 % (11.5-14.5); WBC 8.7 10x3/uL (4.8-10.8)
[2019-02-21 06:39] LABS: CALCIUM 8.6 mg/dL (8.5-10.1); MAGNESIUM - SERUM 2.2 mg/dL (1.8-2.4); PHOSPHOROUS 5.7 mg/dL (2.5-4.9); URIC ACID 6.2 mg/dL (2.6-7.2); VANCOMYCIN - RANDOM 24.6 ug/mL (10.0-20.0)
[2019-02-21 06:40] LABS: CREATININE - SERUM 5.1 mg/dL (0.6-1.3)
--- NOTE | 2019-02-21 07:30 | NUR ---
A/A/OX4. DENIES ANY PAIN OR DISCOMFORT AT PRESENT TIME AND NO REQUESTS VOICED. ASSESSMENT COMPLETED. IV RIGHT HAND PATENT WITH NS INFUSING WELL AT 10CC HR. NO REDNESS OR EDEMA AT SITE. RIGHT IJ PATENT WITH DRESSING C/D/I. NO BLEEDING NOTED AT SITE. BED PADDING WITH INCONTINENT URINE PT CLEANED AND PADDING CHANGED. WILL CONTINUE POC. CALL LIGHT IN REACH AND BED IN LOW POSITION.
[2019-02-21 07:48] VITALS: BP 166/60
--- NOTE | 2019-02-21 09:03 | OP ---
PATIENT NAME: MAGDALENA ALVAREZ MEDICAL RECORD: [id number] :[birth year] LOCATION:D.M2 D.2138 ADMISSION DATE:02/14/19 SURGEON: CITLALY HUTCHINS MD DATE OF OPERATION: 02/15/2019 PREOPERATIVE DIAGNOSES: 1. Acute renal failure. 2. Septic shock. 3. Diabetes mellitus. POSTOPERATIVE DIAGNOSES: 1. Acute renal failure. 2. Septic shock. 3. Diabetes mellitus. PROCEDURE: Right IJ 12.5 cm Trialysis catheter placement. SURGEON: Citlaly Hutchins MD REPORT OF PROCEDURE: The patient's right neck was prepped and draped in sterile fashion, 5 cc of 1% lidocaine with epinephrine was infused into the surrounding tissues. Using ultrasound guidance, a needle was used to cannulate the right internal jugular vein and a guidewire was advanced with ease. A skin incision was then made with an 11 blade and dilators were placed over the wire. This was followed up by the Trialysis catheter. The Trialysis catheter aspirated nonpulsatile dark blood and flushed easily with normal saline. This was sutured into place with 3-0 nylons and dressed appropriately. COMPLICATIONS: None. CONDITION: Fair. ANESTHESIA: Local. BLOOD LOSS: Minimal. Procedure done in the ICU at the bedside. TRANSINT:[id number] Voice Confirmation ID: [id number] DOCUMENT ID: [id number] CITLALY HUTCHINS MD at 0903 CC: [id number] DICTATION DATE: 02/15/19 1537 MATTRESS RENOVATOR: 02/15/19 2230 ADM IN [place] [address] [place] [address]
[2019-02-21 13:15] VITALS: BP 154/57
--- NOTE | 2019-02-21 16:33 | MORECARE ---
CASE MANAGEMENT DISCHARGE SUMMARY PATIENT: MAGDALENA ALVAREZ UNIT: [id number] ADM DATE: 02/14/19 AGE: 68 : [birth year] SEX: F ROOM/BED: D.8729 AUTHOR: BEARTICE,DOC PHYSICIAN: REFERRING PHYSICIAN: BENEDICTO CALLAWAY MD DATE OF SERVICE: 02/21/19 Discharge Plan Patient Name: MAGDALENA ALVAREZ Facility: [facility]:[place] : 1950 Planned Disposition: Nursing Facility [facility] Cert Anticipated Discharge Date: Discharge Date: Expected LOS: Initial Reviewer: [email or web address] Initial Review Date: 02/14/2019 Generated: 02/21/19 5:33 pm Comments DCP- Discharge Planning Updated by [email or web address]: Pravin Doyle on 02/21/19 3:[address] Patient Name: MAGDALENA ALVAREZ Encounter No: [id number] : 1950 Primary Insurance: MEDICARE PART B ONLY Anticipated DC Date: Planned Disposition: Nursing Facility [facility] External Planned Provider: TO BE DETERMINED DCP follow-up note: CM CALLED [facility], ASKED IF THEY CAN ACCOMODATE DIALYSIS TRANSPORTATION. GIN WILL CHECK AND CALL CM BACK. CM CALLED BACK AFTER LUNCH, SPOKE TO GIN WHO INFORMED CM THAT THEY CANNOT TRANSPORT TO DIALYSIS AND PT WILL NEED OTHER PLACEMENT. GIN REPORTS FAMILY WAS THINKING [facility] IN [place]. RN CM HOUSE NOTIFIED MARIAH OF [facility]. CM ATTEMPTED TO SEE PT TO DISCUSS MOVING TO ANOTHER NURSING FACILITY, PT WAS NOT IN ROOM. PATIENT WILL NEED A NEW FPC CARE PLACEMENT. CM TO DISCUSS WITH PT FOR CHOICE AND BEGIN NEW PLACEMENT EFFORTS. Pravin Doyle, CASE MANAGEMENT DCP- Discharge Planning Updated by [email or web address]: Bere Cruz on 02/19/19 2:[address] CM contacted [facility] in [facility] [phone] . CM informed staff that patient has been started on dialysis since she has been admitted. CM asked if they currently have any dialysis patients or if they accept dialysis patients. Staff replied that they currently don't have any dialysis patients. She requested for CM to fax records and she will have clinical research administrator look them over and call back tomorrow after review. CM will continue to follow and assist as needed with discharge planning / needs. DCP- Discharge Planning Updated by [email or web address]: Bere Cruz on 02/18/19 4:[address] CM notified Mariah Mina via email of new patient starting hemodialysis and that patient is resident at [facility] in [facility]. CM will continue to follow and assist as needed with discharge planning / needs. DCP- Discharge Planning Updated by [id number]: eBre Cruz on 02/14/19 6:[address] Patient Name: MAGDALENA ALVAREZ Admission Status: ER Accout number: [id number] Admission Date: 02-14-2019 : 1950 Admission Diagnosis: Attending: BENEDICTO CALLAWAY Current LOS: 1 Anticipated DC Date: Planned Disposition: Nursing Facility [facility] Primary Insurance: MEDICARE IP PART B ONLY Discharge Planning Comments: CM met with patient at bedside. Patient states she lives at long term in [facility]. ([place]) and plans to return there upon discharge. NICA completed for [place] Patient denies any discharge needs at this time. CM will continue to follow and assist as needed with discharge planning / needs. Furniture Sander: Bere Cruz DCPIA - Discharge Planning Initial Assessment Updated by [email or web address]: Bere Cruz on 02/14/19 7:24 pm * Preadmission Environment Shelter Prison * Facility Name [facility]. Mailing Address: [address] [place] [address]. Phone Number?: ?[phone] * ADLs Partial Dependent * List name and contact numbers for known caregivers / representatives who currently or will assist patient after discharge: IJEOMA BENITEZ - GRAND-DAUGHTER- [phone] * Verbal permission to speak to the caregivers and representatives has been obtained from the patient. N/A * Additional services required to return to the preadmission environment? No * Can the patient safely return to the preadmission environment? Yes * Has this patient been hospitalized within the prior 30 days at any hospital? No Last DP export: 02/19/19 2:18 p Patient Name: MAGDALENA ALVAREZ Page [id number] at 1633 All edits/amendments must be made on the electronic document DICTATION DATE: 02/21/19 163 ENDOCRINOLOGY TEACHER: RADHA 02/21/19 1633 RPT#: [id number] DC DATE: STATUS: ADM IN [facility] [address] [place] [address] END OF REPORT
--- NOTE | 2019-02-21 17:05 | NUR ---
CONSENTS FOR SURGERY SIGNED BY PT. EXPLAINED PROCEDURE TO HER AND HAD NO QUESTIONS.
--- NOTE | 2019-02-21 17:32 | NUR ---
I have reviewed this patient and I concur with the Shift Assessment completed by the Licensed Practical Nurse today this shift.
--- NOTE | 2019-02-21 19:51 | NUR ---
PT IN BED. DENIES NEEDS AT THIS TIME.
[2019-02-21 20:00] VITALS: BP 113/57
[2019-02-22 00:15] VITALS: BP 116/55
[2019-02-22 04:00] VITALS: BP 171/60
[2019-02-22 05:23] LABS: BASOPHILS 0.4 % (0-2); EOSINOPHILS 4.1 % (0-7); HEMOGLOBIN 9.7 g/dL (12-16); LYMPHOCYTES 12.9 % (15-50); MCH 27.2 pg (26.0-34.0); MCHC 31.3 g/dL (31.0-37.0); MCV 87.1 fL (80.0-100.0); MONOCYTES 11.2 % (2-11); NEUTROPHILS 66.4 % (40-80); PLATELET COUNT 148 10x3/uL (130-400); RBC 3.56 10x6/uL (4.00-5.40); WBC 7.4 10x3/uL (4.8-10.8)
[2019-02-22 05:35] LABS: ANION GAP 15.2 mmol/L (8-16); CALCIUM 8.7 mg/dL (8.5-10.1); CARBON DIOXIDE 23.8 mmol/L (21.0-32.0); CREATININE - SERUM 5.7 mg/dL (0.6-1.3); MAGNESIUM - SERUM 2.2 mg/dL (1.8-2.4); PHOSPHOROUS 5.3 mg/dL (2.5-4.9); VANCOMYCIN - RANDOM 20.6 ug/mL (10.0-20.0)
--- NOTE | 2019-02-22 07:30 | NUR ---
PREOP MEDS GIVEN AND TO SURGERY VIA BED. ASSESSMENT COMPLETED AT THIS TIME.
--- NOTE | 2019-02-22 10:15 | NUR ---
RETURNED TO ROOM VIA BED FROM SURGERY. A/A/OX4 AND REQUESTS CHEERIOS FOR BREAKFAST AND GIVEN. TOLERATED WELL, NO PAIN OR NAUSEA. HEMESPLIT SITE WITH DRESSING IN PLACE IS C/D/I. VSS STABLE.
[2019-02-22 11:02] VITALS: BP 149/71
--- NOTE | 2019-02-22 13:35 | MORECARE ---
CASE MANAGEMENT DISCHARGE SUMMARY PATIENT: MAGDALENA ALVAREZ UNIT: [id number] ADM DATE: 02/14/19 AGE: 68 : 49 SEX: F ROOM/BED: D.3704 AUTHOR: BEATRICE,DOC PHYSICIAN: REFERRING PHYSICIAN: BENEDICTO CALLAWAY MD DATE OF SERVICE: 02/22/19 Discharge Plan Patient Name: MAGDALENA ALVAREZ Facility: [facility]:[place] : 1950 Planned Disposition: Nursing Facility [facility] Cert Anticipated Discharge Date: Discharge Date: Expected LOS: Initial Reviewer: [email or web address] Initial Review Date: 02/14/2019 Generated: 02/22/19 2:35 pm Comments DCP- Discharge Planning Updated by [email or web address]: Pravin Doyle on 02/21/19 3:[address] Patient Name: MAGDALENA ALVAREZ Encounter No: [id number] : 1950 Primary Insurance: MEDICARE PART B ONLY Anticipated DC Date: Planned Disposition: Nursing Facility [facility] Cert External Planned Provider: TO BE DETERMINED DCP follow-up note: CM CALLED [facility], ASKED IF THEY CAN ACCOMODATE DIALYSIS TRANSPORTATION. GIN WILL CHECK AND CALL CM BACK. CM CALLED BACK AFTER LUNCH, SPOKE TO GIN WHO INFORMED CM THAT THEY CANNOT TRANSPORT TO DIALYSIS AND PT WILL NEED OTHER PLACEMENT. GIN REPORTS FAMILY WAS THINKING [facility] IN [place]. RN HOUSE NOTIFIED MARIAH OF [facility]. CM ATTEMPTED TO SEE PT TO DISCUSS MOVING TO ANOTHER NURSING FACILITY, PT WAS NOT IN ROOM. PATIENT WILL NEED A NEW JAIL CARE PLACEMENT. CM TO DISCUSS WITH PT FOR CHOICE AND BEGIN NEW PLACEMENT EFFORTS. Pravin Doyle, CASE MANAGEMENT DCP- Discharge Planning Updated by [email or web address]: Bere Cruz on 02/19/19 2:[address] CM contacted [facility] in [facility] [phone] . CM informed staff that patient has been started on dialysis since she has been admitted. CM asked if they currently have any dialysis patients or if they accept dialysis patients. Staff replied that they currently don't have any dialysis patients. She requested for CM to fax records and she will have linux unix administrator look them over and call back tomorrow after review. CM will continue to follow and assist as needed with discharge planning / needs. DCP- Discharge Planning Updated by [email or web address]: Bere Cruz on 02/18/19 4:[address] CM notified Mariah Mina via email of new patient starting hemodialysis and that patient is resident at [facility] in [facility]. CM will continue to follow and assist as needed with discharge planning / needs. DCP- Discharge Planning Updated by [email or web address]: Bere Cruz on 02/14/19 6:[address] Patient Name: MAGDALENA ALVAREZ Admission Status: ER Accout number: [id number] Admission Date: 02-14-2019 : 1950 Admission Diagnosis: Attending: BENEDICTO CALLAWAY Current LOS: 1 Anticipated DC Date: Planned Disposition: Nursing Facility [facility] Primary Insurance: MEDICARE IP PART B ONLY Discharge Planning Comments: CM met with patient at bedside. Patient states she lives at alf in [facility]. ([place]) and plans to return there upon discharge. NICA completed for [place] Patient denies any discharge needs at this time. CM will continue to follow and assist as needed with discharge planning / needs. Position Classification Manager: Bere Cruz DCPIA - Discharge Planning Initial Assessment Updated by [email or web address]: Bere Cruz on 02/14/19 7:24 pm * Preadmission Environment Custodial Alf * Facility Name [facility]. Mailing Address: [address] [place] [address]. Phone Number?: ?[phone] * ADLs Partial Dependent * List name and contact numbers for known caregivers / representatives who currently or will assist patient after discharge: IJEOMA BENITEZ - GRAND-DAUGHTER- [phone] * Verbal permission to speak to the caregivers and representatives has been obtained from the patient. N/A * Additional services required to return to the preadmission environment? No * Can the patient safely return to the preadmission environment? Yes * Has this patient been hospitalized within the prior 30 days at any hospital? No External Providers External Provider: OTHER-OTHER Next Contact Date: 02/22/2019 Service Request Date: Service Type: Resolution: Reviewer: Comments: Coverage Notice Reviewer: [id number] Doyle Notice Issued Date-Time: 02/22/2019 9:50 Notice Type: IM Discharge Notice Notice Delivered To: Patient Relationship to Patient: Strap Cutter Name: Delivery Method: HAND - Hand Delivered Isha Days: Prior Verbal Notification: Recipient Understood Notice: Yes Recipient Signature: Yes Med Rec Note Co-signed by Attending: Coverage Notice Comment: Reviewer: LISA Doyle Notice Issued Date-Time: 02/22/2019 9:50 Notice Type: Patient Choice Letter Notice Delivered To: Patient Relationship to Patient: Strap Cutter Name: Delivery Method: HAND - Hand Delivered Isha Days: Prior Verbal Notification: Recipient Understood Notice: Yes Recipient Signature: Yes Med Rec Note Co-signed by Attending: Coverage Notice Comment: NO FDC PREFERENCE Last DP export: 02/21/19 3:33 p Patient Name: MAGDALENA ALVAREZ Page [id number] at 1335 All edits/amendments must be made on the electronic document DICTATION DATE: 02/22/19 1335 SIENE MAKER: RADHA 02/22/19 1335 RPT#: [id number] DC DATE: STATUS: ADM IN [facility] [address] [place] [address] END OF REPORT
--- NOTE | 2019-02-22 13:46 | MORECARE ---
CASE MANAGEMENT DISCHARGE SUMMARY PATIENT: MAGDALENA ALVAREZ UNIT: [id number] ADM DATE: 02/14/19 AGE: 68 : [birth year] SEX: F ROOM/BED: D.6496 AUTHOR: BEATRICE,DOC PHYSICIAN: REFERRING PHYSICIAN: BENEDICTO CALLAWAY MD DATE OF SERVICE: 02/22/19 Discharge Plan Patient Name: MAGDALENA ALVAREZ Facility: [facility]:[place] : 1950 Planned Disposition: Nursing Facility [facility] Cert Anticipated Discharge Date: Discharge Date: Expected LOS: Initial Reviewer: [email or web address] Initial Review Date: 02/14/2019 Generated: 02/22/19 2:45 pm Comments DCP- Discharge Planning Updated by [id number]: Pravin Doyle on 02/22/19 12:[address] Patient Name: MAGDALENA ALVAREZ Encounter No: [id number] : 1950 Primary Insurance: MEDICARE IP PART B ONLY Anticipated DC Date: Planned Disposition: Nursing Facility [facility] Cert External Planned Provider: [facility], LONG TERM CARE MEDICAID BED DCP follow-up note: CM SPOKE TO PT IN ROOM REGARDING DISCHARGE PLANNING AND NEEDS, INFORMED CM THAT [facility] WILL NOT ACCEPT BACK THEY CANNOT PROVIDE OUTPATIENT DIALYSIS TRANSPORTATION. CM DISCUSSED OPTIONS. PT ASKED TO BE KEPT CLOSE TO [facility] POSSIBLE HER SISTER IS IN SINTER FEEDER CARE AT [facility] AND THEY WERE SHARING A ROOM PRIOR TO THIS HOSPITAL STAY. PT ASKED CM TO CALL HER SISTER, ROSIO ADAMES, AND GRANDDAUGHTER, IJEOMA BENITEZ. CHOICE SIGNED FOR NO PREFERENCE ON SENIOR LIVING PROVIDER, IMPORTANT MESSAGE FROM MEDICARE PROVIDED AND EXPLAINED. CM RECEIVED CALL FROM PT'S SISTER, ROSIO ADAMES, , PROVIDED UPDATE. CM CALLED PT'S GRANDDAUGHTER, IJEOMA BENITEZ, , WHO INFORMED CM THAT SHE WOULD LIKE REFERRAL SENT TO [facility] IN [place] [facility] WAS SUPPOSED TO BE MOVING PT'S SISTER TO LIVE WITH PT AT [facility]. CM CALLED [facility], , SPOKE TO SHANNON WHO INFORMED CM THAT THE HAM STRIPPER WOULD REVIEW REFERRAL FOR ADMISSION AND ASKED FOR REFERRAL TO BE FAXED. CM FAXED REFERRAL FOR SINTER FEEDER CARE PLACEMENT TO [facility], . CM WAITING ADMISSION DETERMINATION FROM [facility]. IF ACCEPTED, NOTIFY BARTOLOME CARVAJAL OF [facility] FOR OUTPATIENT DIALYSIS CLINIC ARRANGEMENT. Pravin Doyle. CASE MANAGEMENT DCP- Discharge Planning Updated by [id number]: Pravin Doyle on 02/21/19 3:[address] Patient Name: MAGDALENA ALVAREZ Encounter No: [id number] : 1950 Primary Insurance: MEDICARE IP PART B ONLY Anticipated DC Date: Planned Disposition: Nursing Facility [facility] Cert External Planned Provider: TO BE DETERMINED DCP follow-up note: CM CALLED [facility], ASKED IF THEY CAN ACCOMODATE DIALYSIS TRANSPORTATION. [facility] WILL CHECK AND CALL CM BACK. CM CALLED BACK AFTER LUNCH, SPOKE TO [facility] WHO INFORMED CM THAT THEY CANNOT TRANSPORT TO DIALYSIS AND PT WILL NEED OTHER PLACEMENT. GIN REPORTS FAMILY WAS THINKING [facility] IN [place]. RN HOUSE NOTIFIED BARTOLOME OF [facility]. CM ATTEMPTED TO SEE PT TO DISCUSS MOVING TO ANOTHER NURSING FACILITY, PT WAS NOT IN ROOM. PATIENT WILL NEED A NEW SINTER FEEDER CARE PLACEMENT. CM TO DISCUSS WITH PT FOR CHOICE AND BEGIN NEW PLACEMENT EFFORTS. Pravin Doyle, CASE MANAGEMENT DCP- Discharge Planning Updated by [email or web address]: Bere Cruz on 02/19/19 2:[address] CM contacted [facility] in [facility] [phone] . CM informed staff that patient has been started on dialysis since she has been admitted. CM asked if they currently have any dialysis patients or if they accept dialysis patients. Staff replied that they currently don't have any dialysis patients. She requested for CM to fax records and she will have payroll administrator look them over and call back tomorrow after review. CM will continue to follow and assist as needed with discharge planning / needs. DCP- Discharge Planning Updated by [id number]: Bere Cruz on 02/18/19 4:[address] CM notified Bartolome Carvajal via email of new patient starting hemodialysis and that patient is resident at [facility] in [facility]. CM will continue to follow and assist as needed with discharge planning / needs. DCP- Discharge Planning Updated by [email or web address]: Bere Nancy on 02/14/19 6:[address] Patient Name: MAGDALENA ALVAREZ Admission Status: ER Accout number: [id number] Admission Date: 02-14-2019 : 1950 Admission Diagnosis: Attending: BENEDICTO CALLAWAY Current LOS: 1 Anticipated DC Date: Planned Disposition: Nursing Facility [facility] Primary Insurance: MEDICARE IP PART B ONLY Discharge Planning Comments: CM met with patient at bedside. Patient states she lives at intermediate [facility] ([place]) and plans to return there upon discharge. NICA completed for [place] Patient denies any discharge needs at this time. CM will continue to follow and assist as needed with discharge planning / needs. Results Technician: Bere Cruz DCPIA - Discharge Planning Initial Assessment Updated by [email or web address]: Bere Nancy on 02/14/19 7:24 pm * Preadmission Environment [facility] * Facility Name [facility]. Mailing Address: [address] [place] [address]. Phone Number?: ?[phone] * ADLs Partial Dependent * List name and contact numbers for known caregivers / representatives who currently or will assist patient after discharge: IJEOMA BENITEZ - GRAND-DAUGHTER- [phone] * Verbal permission to speak to the caregivers and representatives has been obtained from the patient. N/A * Additional services required to return to the preadmission environment? No * Can the patient safely return to the preadmission environment? Yes * Has this patient been hospitalized within the prior 30 days at any hospital? No Coverage Notice Reviewer: [id number] Doyle Notice Issued Date-Time: 02/22/2019 9:50 Notice Type: IM Discharge Notice Notice Delivered To: Patient Relationship to Patient: Perfume Maker Name: Delivery Method: HAND - Hand Delivered Isha Days: Prior Verbal Notification: Recipient Understood Notice: Yes Recipient Signature: Yes Med Rec Note Co-signed by Attending: Coverage Notice Comment: Reviewer: [id number] Doyle Notice Issued Date-Time: 02/22/2019 9:50 Notice Type: Patient Choice Letter Notice Delivered To: Patient Relationship to Patient: Perfume Maker Name: Delivery Method: HAND - Hand Delivered Isha Days: Prior Verbal Notification: Recipient Understood Notice: Yes Recipient Signature: Yes Med Rec Note Co-signed by Attending: Coverage Notice Comment: NO SENIOR LIVING PREFERENCE Last DP export: 02/22/19 12:35 p Patient Name: MAGDALENA ALVAREZ Page [phone] at 1346 All edits/amendments must be made on the electronic document DICTATION DATE: 02/22/19 1345 TRANSFER AND PUMPHOUSE OPERATOR: RADHA 02/22/19 1345 RPT#: [id number] DC DATE: STATUS: ADM IN [facility] [address] [place] [address] END OF REPORT
--- NOTE | 2019-02-22 13:57 | NUR ---
I have reviewed this patient and I concur with the Shift Assessment completed by the Licensed Practical Nurse today this shift.
--- NOTE | 2019-02-22 15:00 | NUR ---
PT RESTING QUIETLY AND NO COMPLAINTS OR REQUESTS. VS REMAIN STABLE.
[2019-02-22 15:43] VITALS: BP 123/48
--- NOTE | 2019-02-22 19:52 | NUR ---
EVENING ROUNDS COMPLETED. REPORT RECEIVED. PT SITTING UP IN BED WITH EYES OPEN, RR EVEN AND UNLABORED. BED IN LOW POSITION. NO S/S OF DISTRESS NOTED. INTRODUCED SELF TO PT. PT DENIES FURTHER NEEDS AT THIS TIME, ANSWERING QUESTIONS APPROPRIATELY. LEFT HEMOSPLIT SITE C/D/I. NO S/S OF DISCOMFORT OR BLEEDING NOTED. CALL LIGHT IN REACH. WILL CTM.
[2019-02-22 20:25] VITALS: BP 127/47
[2019-02-23 00:37] VITALS: BP 149/59
--- NOTE | 2019-02-23 00:37 | NUR ---
ASSISTED PT ONTO BED CHAO. NO S/S OF DISTRESS NOTED. WILL CTM.
--- NOTE | 2019-02-23 03:30 | NUR ---
I have reviewed this patient and I concur with the Shift Assessment completed by the Licensed Practical Nurse today this shift.
[2019-02-23 03:47] VITALS: BP 127/56
[2019-02-23 05:34] LABS: BASOPHILS 0.1 % (0-2); HEMATOCRIT 31.2 % (36.0-48.0); HEMOGLOBIN 9.7 g/dL (12-16); IMMATURE GRANULOCYTES 3.5 % (0-5); LYMPHOCYTES 10.4 % (15-50); MCH 27.5 pg (26.0-34.0); MCHC 31.1 g/dL (31.0-37.0); MCV 88.4 fL (80.0-100.0); MEAN PLATELET VOLUME 10.5 fL (7.4-10.4); MONOCYTES 14.7 % (2-11); NEUTROPHILS 67.3 % (40-80); PLATELET COUNT 140 10x3/uL (130-400); RBC 3.53 10x6/uL (4.00-5.40); RDW 14.4 % (11.5-14.5); WBC 6.9 10x3/uL (4.8-10.8)
[2019-02-23 05:56] LABS: ANION GAP 17.4 mmol/L (8-16); CALCIUM 8.7 mg/dL (8.5-10.1); CARBON DIOXIDE 21.9 mmol/L (21.0-32.0); CREATININE - SERUM 6.9 mg/dL (0.6-1.3); POTASSIUM - SERUM 4.3 mmol/L (3.5-5.1); VANCOMYCIN - RANDOM 18.8 ug/mL (10.0-20.0)
--- NOTE | 2019-02-23 06:24 | NUR ---
PT SITTING UP IN BED WITH EYES OPEN, RR EVEN AND UNLABORED. 164 BLOOD SUGAR TREEATED ORDERED PER SLIDING SCALE. NO S/S OF DISTRESS NOTED. BED IN LOW POSITION. CALL LIGHT IN REACH. WILL CTM.
--- NOTE | 2019-02-23 07:00 | NUR ---
RECEIVED REPORT. ASSUMED CARE OF PATIENT. CALL LIGHT WITHIN REACH. RESTING IN BED, ALERT/ORIENTED. RESP EVEN AND UNLABORED. NO DISTRESS.
--- NOTE | 2019-02-23 07:49 | NUR ---
RANDOM VANCOMYCIN LEVEL WAS 18.8 WILL NOT REDOSE TODAY. CURRENT COURSE IS COMPLETED
[2019-02-23 08:43] VITALS: BP 136/72
--- NOTE | 2019-02-23 10:10 | NUR ---
PATIENT TAKEN TO DIALYSIS AT VIA BED AT 0945. NO DISTRESS UPON LEAVING UNIT.
--- NOTE | 2019-02-23 11:19 | NUR ---
FSBS 149. NO INSULIN PER SLIDING SCALE. REMAINS IN DIALYSIS AT THIS TIME. NO DISTRESS.
--- NOTE | 2019-02-23 12:10 | NUR ---
NEW ORDERS OBTAINED FOR ACTIVASE 4MG X ONE DOSE FOR HEMESPLIT TO LEFT CHEST THAT WAS PLACED YESTERDAY. DIALYSIS, [facility], IS HAVING PROBLEMS WITH FLOW RATE. ORDERS ENTERED AND PHARMACY TO DELIVER ACTIVASE TO DIALYSIS.
--- NOTE | 2019-02-23 13:04 | NUR ---
PATIENT RETURNED TO UNIT VIA BED FROM DIALYSIS AT THIS TIME. NO DISTRESS. 2 LITERS REMOVED FROM PATIENT. ASSSITED PATIENT ON BEDPAN. WILL COLLECT URINE VIA IN AND OUT CATH.
--- NOTE | 2019-02-23 13:22 | NUR ---
URINE AND STOOL COLLECTED AND SUBMITTED TO LAB AT THIS TIME. NO DISTRES. PATIENT CONSUMING NOON MEAL AT THIS TIME.
[2019-02-23 13:51] LABS: APPEARANCE CLOUDY (CLEAR); BILIRUBIN NEGATIVE (NEGATIVE); COLOR YELLOW (YELLOW); GLUCOSE NEGATIVE (NEGATIVE); KETONE NEGATIVE (NEGATIVE); NITRITE NEGATIVE (NEGATIVE); PROTEIN 1+ mg/dL (NEGATIVE); UROBILINOGEN NORMAL (NORMAL)
[2019-02-23 13:53] LABS: EPITHELIAL CELLS 0-5 /hpf (0-5); RED CELLS - URINE 0-5 /hpf (0-5)
[2019-02-23 13:54] LABS: BACTERIA FEW /hpf (NONE SEEN); MUCUS <1+ /lpf (NONE SEEN); YEAST <1+ /hpf (NONE SEEN)
--- NOTE | 2019-02-23 14:22 | NUR ---
FSBS 176. 2 UNITS HUMALOG ADMINISTERED PER SLIDING SCALE.
--- NOTE | 2019-02-23 16:04 | NUR ---
REPOSITIONED PATIENT IN BED. CONTINUES WITH LOOSE STOOLS BUT CONTINENT OF B&B. DENIES PAIN. NO DISTRESS. CALL LIGHT WITHIN REACH.
[2019-02-23 16:08] VITALS: BP 129/54
--- NOTE | 2019-02-23 18:19 | NUR ---
FSBS 152. 2 UNITS HUMALOG ADMINISTERED PER SLIDING SCALE. NO DISTRESS. PATIENT WATCHING TELEVISION AND INSTRUCTED TO REPORT ANY S/S HYPOGLYCEMIA.
--- NOTE | 2019-02-23 19:44 | NUR ---
INITIAL ROUNDS COMPLETED. PT HAD MODERATE AMOUNT OF LOOSE STOOL VIA BEDPAN. PT CLEANED. PT ABLE TO ROLL WITHOUT DIFFICULTY. CALL LIGHT WIHIN REACH.
[2019-02-23 20:20] VITALS: BP 112/53
--- NOTE | 2019-02-23 22:22 | NUR ---
ASSESSMENT COMPLETED AT 2024 HRS. VSS. O2 3LNC. PT ALERT AND ORIENTED TO PWERSON, PLACE AND TIME. [place]. IV TO R HAND SL. R NECK TRIALYSIS CATHETER CLEAN, DRY AND INTACT. L CHEST HEMOSPLIT NOTED. LUNGS DIMINISHED IN BASES BILAT. PM MEDS GIVEN PER ORDERS. PM FSBS 145; NO COVERAGE NEEDED. PT CURRENTLY WATCHING TV. SR UP X3, CALL LIGHT WITHIN REACH.
[2019-02-24 00:02] VITALS: BP 121/65
--- NOTE | 2019-02-24 00:43 | NUR ---
PT RESTING WITH EYES CLOSED. RESP EVEN AND REGULAR. SR UP X3, CALL LIGHT WITHIN REACH.
--- NOTE | 2019-02-24 02:22 | NUR ---
PT RESTING WITH EYES CLOSED. RESP EVEN AND REGULAR. SR UP X3, CALL LIGHT WITHIN REACH.
[2019-02-24 03:50] VITALS: BP 129/53
--- NOTE | 2019-02-24 04:20 | NUR ---
PT RESTING WITH EYES CLOSED. RESP EVEN AND REGULAR. SR UP X2, CALL LIGHT WITHIN REACH.
[2019-02-24 06:20] LABS: BASOPHILS 0.1 % (0-2); EOSINOPHILS 3.2 % (0-7); HEMATOCRIT 30.3 % (36.0-48.0); HEMOGLOBIN 9.6 g/dL (12-16); IMMATURE GRANULOCYTES 1.8 % (0-5); LYMPHOCYTES 9.8 % (15-50); MCH 27.8 pg (26.0-34.0); MCHC 31.7 g/dL (31.0-37.0); MCV 87.8 fL (80.0-100.0); MEAN PLATELET VOLUME 10.8 fL (7.4-10.4); MONOCYTES 17.6 % (2-11); NEUTROPHILS 67.5 % (40-80); PLATELET COUNT 116 10x3/uL (130-400); RBC 3.45 10x6/uL (4.00-5.40); RDW 14.5 % (11.5-14.5); WBC 8.5 10x3/uL (4.8-10.8)
--- NOTE | 2019-02-24 06:26 | NUR ---
FSBS 158. 2 UNITS HUMALOG GIVEN SUB-Q TO UPPER R ARM. VSS THROUGHOUT NIGHT. HAD DIARRHEA X 4 DURING SHIFT. PT ABLE TO TURN SELF WITHOUT DIFFICULTY. NEEDS MET; WILL CONTINUE TO MONITOR.
[2019-02-24 06:33] LABS: ALBUMIN 2.3 g/dL (3.4-5.0); ANION GAP 16.2 mmol/L (8-16); BILIRUBIN - TOTAL 0.45 mg/dL (0.2-1.3); CALCIUM 8.6 mg/dL (8.5-10.1); CARBON DIOXIDE 24.7 mmol/L (21.0-32.0); CREATININE - SERUM 6.4 mg/dL (0.6-1.3); POTASSIUM - SERUM 3.9 mmol/L (3.5-5.1); PROTEIN - SERUM 6.3 g/dL (6.4-8.2)
--- NOTE | 2019-02-24 07:00 | NUR ---
RECEIVED REPORT. ASSUMED CARE OF PATIENT. PATIENT WITH EYES CLOSED. RESP EVEN AND UNLABORED. CALL LIGHT WITHIN REACH. NO DISTRESS.
[2019-02-24 07:53] VITALS: BP 135/64
--- NOTE | 2019-02-24 10:27 | NUR ---
FSBS 152. 2 UNITS HUMALOG ADMINISTERED PER SLIDING SCALE AT THIS TIME.
[2019-02-24 11:17] VITALS: BP 129/57
--- NOTE | 2019-02-24 15:19 | NUR ---
12.5CM TRIALYSIS REMOVED FROM RIGHT IJ ORDERED. CATHETER TIP INTACT. PRESSURE HELD TO SITE FOR 15 MINUTES. NO BLEEDING FROM SITE. 4X4 GAUZE APPLIED AND SECURED WITH CLEAR TEGADERM. PATIENT TOLERATED REMOVAL OF TRIALYSIS WELL. DENIES NEEDS AT THIS TIME. RESTING IN BED WITH ATTENTION TOWARD TELEVISION. CALL LIGHT WITHIN REACH. NO DISTRESS. NO BLEEDING AT RIGHT IJ AT THIS TIME.
[2019-02-24 15:59] VITALS: BP 126/62
--- NOTE | 2019-02-24 18:01 | NUR ---
FSBS 139. NO INSULIN COVERAGE PER SLIDING SCALE. PATIENT WITH ATTENTION TOWARD TELEVISION. CALL LIGHT WITHIN REACH. NO DISTRESS.
--- NOTE | 2019-02-24 19:44 | NUR ---
INITIAL ROUNDS COMPLETED AT 1920 HRS. PT RESTING WITH EYES CLOSED. RESP EVEN AND REGULAR. SR UP X2,CALL LIGHT WITHIN REACH.
[2019-02-24 20:15] VITALS: BP 106/46
--- NOTE | 2019-02-24 21:51 | NUR ---
ASSESSMENT COMPLETED AT 2015 HRS. VSS. PT ALERT AND ORIENTED TO PERSON, PLACE AND TIME. [place]. IV TO R WRIST SL. L CHEST HEMOSPLIT CLEAN,DRY AND INTACT. O2 2.5LNC. LUNGS DIMINISHED IN BASES BILAT. PT REFUSES SCD'S. PM MEDS GIVEN. PT CURRENTLY RESTING WITH EYES CLOSED. RESP EVEN AND REGULAR. SR UP X2, CALL LIGHT WITHIN REACH.
--- NOTE | 2019-02-25 00:21 | NUR ---
PT RESTING WITH EYES CLOSED. RESP EVEN AND REGULAR. SR UP X2, CALL LIGHT WITHIN REACH.
[2019-02-25 00:33] VITALS: BP 125/56
--- NOTE | 2019-02-25 02:14 | NUR ---
FSBS 149. NO COVERGE NEEDED. PT DENIES ANY DISCOMFORT OR NEEDS. SR UP X2, CALL LIGHT WITHIN REACH.
[2019-02-25 03:45] VITALS: BP 126/57
--- NOTE | 2019-02-25 05:03 | NUR ---
PT RESTING WITH EYES CLOSED. RESP EVEN AND REGULAR. SR UP X2, CALL LIGHT WITHIN REACH.
[2019-02-25 05:55] LABS: BASOPHILS 0.1 % (0-2); EOSINOPHILS 3.3 % (0-7); HEMATOCRIT 30.4 % (36.0-48.0); HEMOGLOBIN 9.7 g/dL (12-16); IMMATURE GRANULOCYTES 1.4 % (0-5); LYMPHOCYTES 11.1 % (15-50); MCH 27.8 pg (26.0-34.0); MCHC 31.9 g/dL (31.0-37.0); MCV 87.1 fL (80.0-100.0); MEAN PLATELET VOLUME 11.6 fL (7.4-10.4); NEUTROPHILS 71.1 % (40-80); PLATELET COUNT 126 10x3/uL (130-400); RBC 3.49 10x6/uL (4.00-5.40); RDW 14.6 % (11.5-14.5)
[2019-02-25 06:00] LABS: ALBUMIN 2.3 g/dL (3.4-5.0); ANION GAP 17.6 mmol/L (8-16); BILIRUBIN - TOTAL 0.4 mg/dL (0.2-1.3); CALCIUM 8.3 mg/dL (8.5-10.1); CARBON DIOXIDE 22.5 mmol/L (21.0-32.0); POTASSIUM - SERUM 4.1 mmol/L (3.5-5.1); PROTEIN - SERUM 5.8 g/dL (6.4-8.2)
[2019-02-25 06:01] LABS: CREATININE - SERUM 8.2 mg/dL (0.6-1.3)
--- NOTE | 2019-02-25 06:42 | NUR ---
VSS THROUGHOUT NIGHT. PT DENIED ANY DISCOMFORT. NEEDS MET; WILL CONTINUE TO MONITOR.
[2019-02-25 07:25] VITALS: BP 130/82
--- NOTE | 2019-02-25 07:55 | NUR ---
PT RESTING WITH EYES CLOSED. OPENS EYES UPON STAFF ENTERING ROOM. NO ACUTE DISTRESS NOTED. O2 @ 2.5L NC IN PLACE. HEMOSPLIT TO LEFT CHEST IN PLACE, SITE WITHOUT REDNESS EDEMA OR DRAINAGE. SALINE LOC TO RIGHT HAND. SITE WITHOUT REDNESS OR EDEMA. DENIES PAIN AT THIS TIME. CL WITHIN REACH. ENCOURAGED TO CALL WITH NEEDS. CONTINUE POC
--- NOTE | 2019-02-25 09:30 | MORECARE ---
CASE MANAGEMENT DISCHARGE SUMMARY PATIENT: MAGDALENA ALVAREZ UNIT: [id number] ADM DATE: 02/14/19 AGE: 68 : [birth year] SEX: F ROOM/BED: D.7387 AUTHOR: BEATRICE,DOC PHYSICIAN: REFERRING PHYSICIAN: BENEDICTO CALLAWAY MD DATE OF SERVICE: 02/25/19 Discharge Plan Patient Name: MAGDALENA ALVAREZ Facility: [facility]:[place] : 1950 Planned Disposition: Nursing Facility [facility] Cert Anticipated Discharge Date: Discharge Date: Expected LOS: Initial Reviewer: [email or web address] Initial Review Date: 02/14/2019 Generated: 02/25/19 10:29 am Comments DCP- Discharge Planning Updated by [id number]: Pravin Doyle on 02/25/19 8:[address] Patient Name: MAGDALENA ALVAREZ Encounter No: [id number] : 1950 Primary Insurance: MEDICARE IP PART B ONLY Anticipated DC Date: Planned Disposition: Nursing Facility [facility] Cert External Planned Provider: [facility], LONG TERM CARE MEDICAID BED DCP follow-up note: CM FAXED REFERRAL UPDATE FOR VALVE REPAIRER CARE PLACEMENT TO [facility], . CM WAITING ADMISSION DETERMINATION FROM [facility]. IF ACCEPTED, NOTIFY MARIAH CARVAJAL OF [facility] FOR OUTPATIENT DIALYSIS CLINIC ARRANGEMENT. Pravin Doyle. CASE MANAGEMENT DCP- Discharge Planning Updated by [id number]: Pravin Doyle on 02/22/19 12:[address] Patient Name: MAGDALENA ALVAREZ Encounter No: [id number] : 1950 Primary Insurance: MEDICARE IP PART B ONLY Anticipated DC Date: Planned Disposition: Nursing Facility [facility] Cert External Planned Provider: [facility], LONG TERM CARE MEDICAID BED DCP follow-up note: CM SPOKE TO PT IN ROOM REGARDING DISCHARGE PLANNING AND NEEDS, INFORMED CM THAT [facility] WILL NOT ACCEPT BACK THEY CANNOT PROVIDE OUTPATIENT DIALYSIS TRANSPORTATION. CM DISCUSSED OPTIONS. PT ASKED TO BE KEPT CLOSE TO [facility] POSSIBLE HER SISTER IS IN VALVE REPAIRER CARE AT [facility] AND THEY WERE SHARING A ROOM PRIOR TO THIS HOSPITAL STAY. PT ASKED CM TO CALL HER SISTER, ROSIO ADAMES, AND GRANDDAUGHTER, IJEOMA BENITEZ. CHOICE SIGNED FOR NO PREFERENCE ON SENIOR CARE PROVIDER, IMPORTANT MESSAGE FROM MEDICARE PROVIDED AND EXPLAINED. CM RECEIVED CALL FROM PT'S SISTER, ROSIO ADAMES, , PROVIDED UPDATE. CM CALLED PT'S GRANDDAUGHTER, IJEOMA BENITEZ, , WHO INFORMED CM THAT SHE WOULD LIKE REFERRAL SENT TO [facility] IN [place] [facility] WAS SUPPOSED TO BE MOVING PT'S SISTER TO LIVE WITH PT AT [facility]. CM CALLED [facility], , SPOKE TO SHANNON WHO INFORMED CM THAT THE SERVICE COORDINATOR WOULD REVIEW REFERRAL FOR ADMISSION AND ASKED FOR REFERRAL TO BE FAXED. CM FAXED REFERRAL FOR HALF-WAY CARE PLACEMENT TO [facility], . CM WAITING ADMISSION DETERMINATION FROM [facility]. IF ACCEPTED, NOTIFY MARIAH CARVAJAL OF [facility] FOR OUTPATIENT DIALYSIS CLINIC ARRANGEMENT. Pravin Doyle. CASE MANAGEMENT DCP- Discharge Planning Updated by [id number]: Pravin Doyle on 02/21/19 3:[address] Patient Name: MAGDALENA ALVAREZ Encounter No: [id number] : 1950 Primary Insurance: MEDICARE IP PART B ONLY Anticipated DC Date: Planned Disposition: Nursing Facility [facility] Cert External Planned Provider: TO BE DETERMINED DCP follow-up note: CM CALLED [facility], ASKED IF THEY CAN ACCOMODATE DIALYSIS TRANSPORTATION. GIN WILL CHECK AND CALL CM BACK. CM CALLED BACK AFTER LUNCH, SPOKE TO GIN WHO INFORMED CM THAT THEY CANNOT TRANSPORT TO DIALYSIS AND PT WILL NEED OTHER PLACEMENT. GIN REPORTS FAMILY WAS THINKING [facility] IN [place]. RN COLLEEN HOUSE NOTIFIED MARIAH OF [facility]. CM ATTEMPTED TO SEE PT TO DISCUSS MOVING TO ANOTHER NURSING FACILITY, PT WAS NOT IN ROOM. PATIENT WILL NEED A NEW HALF-WAY CARE PLACEMENT. CM TO DISCUSS WITH PT FOR CHOICE AND BEGIN NEW PLACEMENT EFFORTS. Pravin Doyle, CASE MANAGEMENT DCP- Discharge Planning Updated by [id number]: Bere Cruz on 02/19/19 2:[address] CM contacted [facility] in [facility] [phone] . CM informed staff that patient has been started on dialysis since she has been admitted. CM asked if they currently have any dialysis patients or if they accept dialysis patients. Staff replied that they currently don't have any dialysis patients. She requested for CM to fax records and she will have information systems administrator look them over and call back tomorrow after review. CM will continue to follow and assist as needed with discharge planning / needs. DCP- Discharge Planning Updated by [id number]: Bere Cruz on 02/18/19 4:[address] CM notified Mariah Carvajal via email of new patient starting hemodialysis and that patient is resident at [facility] in [facility]. CM will continue to follow and assist as needed with discharge planning / needs. DCP- Discharge Planning Updated by [id number]: Bere Cruz on 02/14/19 6:[address] Patient Name: MAGDALENA ALVARZE Admission Status: ER Accout number: [id number] Admission Date: 02-14-2019 : 1950 Admission Diagnosis: Attending: BENEDICTO CALLAWAY Current LOS: 1 Anticipated DC Date: Planned Disposition: Nursing Facility [facility] Primary Insurance: MEDICARE IP PART B ONLY Discharge Planning Comments: CM met with patient at bedside. Patient states she lives at shelter in [facility]. ([facility]) and plans to return there upon discharge. NCIA completed for [facility] Patient denies any discharge needs at this time. CM will continue to follow and assist as needed with discharge planning / needs. Cd Reactor Operator: Bere Cruz DCPIA - Discharge Planning Initial Assessment Updated by [id number]: Bere Cruz on 02/14/19 7:24 pm * Preadmission Environment Long-Term [facility] * Facility Name [facility]. Mailing Address: [address] [place] [address]. Phone Number?: ?[phone] * ADLs Partial Dependent * List name and contact numbers for known caregivers / representatives who currently or will assist patient after discharge: IJEOMA BENITEZ - GRAND-DAUGHTER- [phone] * Verbal permission to speak to the caregivers and representatives has been obtained from the patient. N/A * Additional services required to return to the preadmission environment? No * Can the patient safely return to the preadmission environment? Yes * Has this patient been hospitalized within the prior 30 days at any hospital? No Coverage Notice Reviewer: [id number] Doyle Notice Issued Date-Time: 02/22/2019 9:50 Notice Type: IM Discharge Notice Notice Delivered To: Patient Relationship to Patient: Cone Runner Name: Delivery Method: HAND - Hand Delivered Isha Days: Prior Verbal Notification: Recipient Understood Notice: Yes Recipient Signature: Yes Med Rec Note Co-signed by Attending: Coverage Notice Comment: Reviewer: [email or web address] Doyle Notice Issued Date-Time: 02/22/2019 9:50 Notice Type: Patient Choice Letter Notice Delivered To: Patient Relationship to Patient: Cone Runner Name: Delivery Method: HAND - Hand Delivered Isha Days: Prior Verbal Notification: Recipient Understood Notice: Yes Recipient Signature: Yes Med Rec Note Co-signed by Attending: Coverage Notice Comment: NO SENIOR CARE PREFERENCE Last DP export: 02/22/19 12:46 p Patient Name: MAGDALENA ALVAREZ Page 48317 at 0930 All edits/amendments must be made on the electronic document DICTATION DATE: 02/25/19928 TARGET MAN: RADHA 02/25/19928 RPT#: [id number] DC DATE: STATUS: ADM IN [facility] [address] [place] [address] END OF REPORT
--- NOTE | 2019-02-25 09:37 | MORECARE ---
CASE MANAGEMENT DISCHARGE SUMMARY PATIENT: MAGDALENA ALVAREZ UNIT: [id number] ADM DATE: 02/14/19 AGE: 68 : [birth year] SEX: F ROOM/BED: D.2059 AUTHOR: BEATRICE,DOC PHYSICIAN: REFERRING PHYSICIAN: BENEDICTO CALLAWAY MD DATE OF SERVICE: 02/25/19 Discharge Plan Patient Name: MAGDALENA ALVAREZ Facility: [facility]:[place] : 1950 Planned Disposition: Nursing Facility [facility] Cert Anticipated Discharge Date: Discharge Date: Expected LOS: Initial Reviewer: [id number] Initial Review Date: 02/14/2019 Generated: 02/25/19 10:37 am Comments DCP- Discharge Planning Updated by [id number]: Pravin Doyle on 02/25/19 8:[address] Patient Name: MAGDALENA ALVAREZ Encounter No: [id number] : 1950 Primary Insurance: MEDICARE IP PART B ONLY Anticipated DC Date: Planned Disposition: Nursing Facility [facility] Cert External Planned Provider: [facility], LONG TERM CARE MEDICAID BED DCP follow-up note: CM FAXED REFERRAL UPDATE FOR GI PHYSICIAN CARE PLACEMENT TO [facility], . CM WAITING ADMISSION DETERMINATION FROM [facility]. IF ACCEPTED, NOTIFY MARIAH CARVAJAL OF PATIENT [facility]WAYS FOR OUTPATIENT DIALYSIS CLINIC ARRANGEMENT. Pravin Doyle. CASE MANAGEMENT DCP- Discharge Planning Updated by [id number]: Pravin Doyle on 02/22/19 12:[address] Patient Name: MAGDALENA ALVAREZ Encounter No: [id number] : 1950 Primary Insurance: MEDICARE IP PART B ONLY Anticipated DC Date: Planned Disposition: Nursing Facility [facility] Cert External Planned Provider: [facility], LONG TERM CARE MEDICAID BED DCP follow-up note: CM SPOKE TO PT IN ROOM REGARDING DISCHARGE PLANNING AND NEEDS, INFORMED CM THAT [facility] WILL NOT ACCEPT BACK THEY CANNOT PROVIDE OUTPATIENT DIALYSIS TRANSPORTATION. CM DISCUSSED OPTIONS. PT ASKED TO BE KEPT CLOSE TO [facility] POSSIBLE HER SISTER IS IN GI PHYSICIAN CARE AT [facility] AND THEY WERE SHARING A ROOM PRIOR TO THIS HOSPITAL STAY. PT ASKED CM TO CALL HER SISTER, ROSIO ADAMES, AND GRANDDAUGHTER, IJEOMA BENITEZ. CHOICE SIGNED FOR NO PREFERENCE ON CORRECTION PROVIDER, IMPORTANT MESSAGE FROM MEDICARE PROVIDED AND EXPLAINED. CM RECEIVED CALL FROM PT'S SISTER, ROSIO ADAMES, , PROVIDED UPDATE. CM CALLED PT'S GRANDDAUGHTER, IJEOMA BENITEZ, , WHO INFORMED CM THAT SHE WOULD LIKE REFERRAL SENT TO [facility] IN [place] [facility] WAS SUPPOSED TO BE MOVING PT'S SISTER TO LIVE WITH PT AT [facility]. CM CALLED [facility], , SPOKE TO SHANNON WHO INFORMED CM THAT THE CALL OUT CLERK WOULD REVIEW REFERRAL FOR ADMISSION AND ASKED FOR REFERRAL TO BE FAXED. CM FAXED REFERRAL FOR INTERMEDIATE CARE PLACEMENT TO [facility], . CM WAITING ADMISSION DETERMINATION FROM [facility]. IF ACCEPTED, NOTIFY MARIAH CARVAJAL OF PATIENT [facility]WAYS FOR OUTPATIENT DIALYSIS CLINIC ARRANGEMENT. Pravin Doyle. CASE MANAGEMENT DCP- Discharge Planning Updated by [id number]: Pravin Doyle on 02/21/19 3:[address] Patient Name: MAGDALENA ALVAREZ Encounter No: [id number] : 1950 Primary Insurance: MEDICARE IP PART B ONLY Anticipated DC Date: Planned Disposition: Nursing Facility [facility] Cert External Planned Provider: TO BE DETERMINED DCP follow-up note: CM CALLED [facility], ASKED IF THEY CAN ACCOMODATE DIALYSIS TRANSPORTATION. [facility]IN WILL CHECK AND CALL CM BACK. CM CALLED BACK AFTER LUNCH, SPOKE TO GIN WHO INFORMED CM THAT THEY CANNOT TRANSPORT TO DIALYSIS AND PT WILL NEED OTHER PLACEMENT. GIN REPORTS FAMILY WAS THINKING [facility] IN [place]. RN COLLEEN HOUSE NOTIFIED MARIAH OF PAT[facility]. CM ATTEMPTED TO SEE PT TO DISCUSS MOVING TO ANOTHER NURSING FACILITY, PT WAS NOT IN ROOM. PATIENT WILL NEED A NEW INTERMEDIATE CARE PLACEMENT. CM TO DISCUSS WITH PT FOR CHOICE AND BEGIN NEW PLACEMENT EFFORTS. Pravin Doyle, CASE MANAGEMENT DCP- Discharge Planning Updated by [id number]: Bere Cruz on 02/19/19 2:[address] CM contacted [facility] in [facility] [phone] . CM informed staff that patient has been started on dialysis since she has been admitted. CM asked if they currently have any dialysis patients or if they accept dialysis patients. Staff replied that they currently don't have any dialysis patients. She requested for CM to fax records and she will have marketing administrator look them over and call back tomorrow after review. CM will continue to follow and assist as needed with discharge planning / needs. DCP- Discharge Planning Updated by [email or web address]: Bere Cruz on 02/18/19 4:[address] CM notified Mariah Carvajal via email of new patient starting hemodialysis and that patient is resident at [facility] in [facility]. CM will continue to follow and assist as needed with discharge planning / needs. DCP- Discharge Planning Updated by [id number]: Bere Cruz on 02/14/19 6:[address] Patient Name: MAGDALENA ALVAREZ Admission Status: ER Accout number: [id number] Admission Date: 02-14-2019 : 1950 Admission Diagnosis: Attending: BENEDICTO CALLAWAY Current LOS: 1 Anticipated DC Date: Planned Disposition: Nursing Facility [facility] Primary Insurance: MEDICARE IP PART B ONLY Discharge Planning Comments: CM met with patient at bedside. Patient states she lives at assisted in [facility]. ([place]) and plans to return there upon discharge. NICA completed for [place] Patient denies any discharge needs at this time. CM will continue to follow and assist as needed with discharge planning / needs. Tactical Debriefer: Bere Cruz DCPIA - Discharge Planning Initial Assessment Updated by [id number]: Bere Cruz on 02/14/19 7:24 pm * Preadmission Environment [facility] * Facility Name [facility]. Mailing Address: [address] [place] [address]. Phone Number?: ?[phone] * ADLs Partial Dependent * List name and contact numbers for known caregivers / representatives who currently or will assist patient after discharge: IJEOMA BENITEZ - GRAND-DAUGHTER- [phone] * Verbal permission to speak to the caregivers and representatives has been obtained from the patient. N/A * Additional services required to return to the preadmission environment? No * Can the patient safely return to the preadmission environment? Yes * Has this patient been hospitalized within the prior 30 days at any hospital? No Coverage Notice Reviewer: [id number] Doyle Notice Issued Date-Time: 02/22/2019 9:50 Notice Type: IM Discharge Notice Notice Delivered To: Patient Relationship to Patient: Laboratory Miller Name: Delivery Method: HAND - Hand Delivered Isha Days: Prior Verbal Notification: Recipient Understood Notice: Yes Recipient Signature: Yes Med Rec Note Co-signed by Attending: Coverage Notice Comment: Reviewer: [id number] Doyle Notice Issued Date-Time: 02/22/2019 9:50 Notice Type: Patient Choice Letter Notice Delivered To: Patient Relationship to Patient: Laboratory Miller Name: Delivery Method: HAND - Hand Delivered Isha Days: Prior Verbal Notification: Recipient Understood Notice: Yes Recipient Signature: Yes Med Rec Note Co-signed by Attending: Coverage Notice Comment: NO CORRECTION PREFERENCE Last DP export: 02/25/19 8:29 am Patient Name: MAGDALENA ALVAREZ Page [id number] at 0937 All edits/amendments must be made on the electronic document DICTATION DATE: 02/25/19936 TOOL PROCUREMENT COORDINATOR: RADHA 02/25/19936 RPT#: [id number] DC DATE: STATUS: ADM IN [facility] [address] [place] [address] END OF REPORT
--- NOTE | 2019-02-25 11:37 | NUR ---
PT SITTING UP IN CHAIR AT BEDSIDE. NO ACUTE DISTRESS. DENIES PAIN AT THIS TIME. DENIES FURTHER NEEDS. CL WITHIN REACH. ANJALI CHAIR MAT IN PLACE AND ON. WILL CONTINUE TO MONITOR.
[2019-02-25 11:38] VITALS: BP 128/76
--- NOTE | 2019-02-25 13:33 | MORECARE ---
CASE MANAGEMENT DISCHARGE SUMMARY PATIENT: MAGDALENA ALVAREZ UNIT: [id number] ADM DATE: 02/14/19 AGE: 68 : [birth year] SEX: F ROOM/BED: D.4874 AUTHOR: BEATRICE,DOC PHYSICIAN: REFERRING PHYSICIAN: BENEDICTO CALLAWAY MD DATE OF SERVICE: 02/25/19 Discharge Plan Patient Name: MAGDALENA ALVAREZ Facility: [facility]:[place] : 1950 Planned Disposition: Nursing Facility [facility] Cert Anticipated Discharge Date: Discharge Date: Expected LOS: Initial Reviewer: [id number] Initial Review Date: 02/14/2019 Generated: 02/25/19 2:33 pm Comments DCP- Discharge Planning Updated by [email or web address]: Pravin Doyle on 02/25/19 12:[address] Patient Name: MAGDALENA ALVAREZ Encounter No: [id number] : 1950 Primary Insurance: MEDICARE IP PART B ONLY Anticipated DC Date: Planned Disposition: Nursing Facility [facility] Cert External Planned Provider: [facility], LONG TERM CARE MEDICAID BED DCP follow-up note: CM FAXED REFERRAL UPDATE FOR CLASSIFIED ADVERTISING CLERK CARE PLACEMENT TO [facility], . CM WAITING ADMISSION DETERMINATION FROM [facility]. IF ACCEPTED, NOTIFeRmi CARVAJAL OF PATIENT [facility] FOR OUTPATIENT DIALYSIS CLINIC ARRANGEMENT. Pravin Doyle. CASE MANAGEMENT Appended by Pravin Doyle on 02/25/2019 13:28 CDT: [facility] ARRIVED TO EVALUATE PT, UPDATE PROVIDED. [facility] WILL MEET WITH PT AND EVALUATE FOR CLASSIFIED ADVERTISING CLERK CARE ADMISSION TO [facility]. CM WAITING ADMISSION DETERMINATION FROM [facility]. IF ACCEPTED, NOTIFRemi CARVAJAL OF PATIENT PATHWAYS FOR OUTPATIENT DIALYSIS CLINIC ARRANGEMENT. Pravin Doyle. CASE MANAGEMENT DCP- Discharge Planning Updated by [id number]: Pravin Doyle on 02/22/19 12:[address] Patient Name: MAGDALENA ALVAREZ Encounter No: [id number] : 1950 Primary Insurance: MEDICARE IP PART B ONLY Anticipated DC Date: Planned Disposition: Nursing Facility [facility] Cert External Planned Provider: [facility], LONG TERM CARE MEDICAID BED DCP follow-up note: CM SPOKE TO PT IN ROOM REGARDING DISCHARGE PLANNING AND NEEDS, INFORMED CM THAT [facility] WILL NOT ACCEPT BACK THEY CANNOT PROVIDE OUTPATIENT DIALYSIS TRANSPORTATION. CM DISCUSSED OPTIONS. PT ASKED TO BE KEPT CLOSE TO [facility] POSSIBLE HER SISTER IS IN SENIOR LIVING CARE AT [facility] AND THEY WERE SHARING A ROOM PRIOR TO THIS HOSPITAL STAY. PT ASKED CM TO CALL HER SISTER, ROSIO ADAMES, AND GRANDDAUGHTER, IJEOMA BENITEZ. CHOICE SIGNED FOR NO PREFERENCE ON GROUP HOME PROVIDER, IMPORTANT MESSAGE FROM MEDICARE PROVIDED AND EXPLAINED. CM RECEIVED CALL FROM PT'S SISTER, ROSIO ADAMES, , PROVIDED UPDATE. CM CALLED PT'S GRANDDAUGHTER, IJEOMA BENITEZ, , WHO INFORMED CM THAT SHE WOULD LIKE REFERRAL SENT TO [facility] IN [place] [facility] WAS SUPPOSED TO BE MOVING PT'S SISTER TO LIVE WITH PT AT [facility]. CM CALLED [facility], , SPOKE TO SHANNON WHO INFORMED CM THAT THE REHABILITATION MEDICINE PHYSICIAN WOULD REVIEW REFERRAL FOR ADMISSION AND ASKED FOR REFERRAL TO BE FAXED. CM FAXED REFERRAL FOR SENIOR LIVING CARE PLACEMENT TO [facility], . CM WAITING ADMISSION DETERMINATION FROM [facility]. IF ACCEPTED, NOTIFRemi CARVAJAL OF PATIENT PATHWAYS FOR OUTPATIENT DIALYSIS CLINIC ARRANGEMENT. Pravin Doyle. CASE MANAGEMENT DCP- Discharge Planning Updated by [id number]: Pravin Doyle on 02/21/19 3:[address] Patient Name: MAGDALENA ALVAREZ Encounter No: [id number] : 1950 Primary Insurance: MEDICARE IP PART B ONLY Anticipated DC Date: Planned Disposition: Nursing Facility [facility] External Planned Provider: TO BE DETERMINED DCP follow-up note: CM CALLED [facility], ASKED IF THEY CAN ACCOMODATE DIALYSIS TRANSPORTATION. [facility] WILL CHECK AND CALL CM BACK. CM CALLED BACK AFTER LUNCH, SPOKE TO [facility] WHO INFORMED CM THAT THEY CANNOT TRANSPORT TO DIALYSIS AND PT WILL NEED OTHER PLACEMENT. GIN REPORTS FAMILY WAS THINKING [facility] IN [place]. RN CM HOUSE NOTIFIED [facility] OF PATIENT [facility]WAYS. CM ATTEMPTED TO SEE PT TO DISCUSS MOVING TO ANOTHER NURSING FACILITY, PT WAS NOT IN ROOM. PATIENT WILL NEED A NEW CLASSIFIED ADVERTISING CLERK CARE PLACEMENT. CM TO DISCUSS WITH PT FOR CHOICE AND BEGIN NEW PLACEMENT EFFORTS. Pravin Doyle, CASE MANAGEMENT DCP- Discharge Planning Updated by [email or web address]: Bere Cruz on 02/19/19 2:[address] CM contacted [facility] in [facility] [phone] . CM informed staff that patient has been started on dialysis since she has been admitted. CM asked if they currently have any dialysis patients or if they accept dialysis patients. Staff replied that they currently don't have any dialysis patients. She requested for CM to fax records and she will have nursing home assistant administrator look them over and call back tomorrow after review. CM will continue to follow and assist as needed with discharge planning / needs. DCP- Discharge Planning Updated by [email or web address]: Bere Cruz on 02/18/19 4:[address] CM notified Bartolome Carvajal via email of new patient starting hemodialysis and that patient is resident at [facility] in [facility]. CM will continue to follow and assist as needed with discharge planning / needs. DCP- Discharge Planning Updated by [email or web address]: Bere Cruz on 02/14/19 6:[address] Patient Name: MAGDALENA ALVAREZ Admission Status: ER Accout number: [id number] Admission Date: 02-14-2019 : 1950 Admission Diagnosis: Attending: BENEDICTO CALLAWAY Current LOS: 1 Anticipated DC Date: Planned Disposition: Nursing Facility [facility] Primary Insurance: MEDICARE IP PART B ONLY Discharge Planning Comments: CM met with patient at bedside. Patient states she lives at [facility] in [facility]. ([place]) and plans to return there upon discharge. NICA completed for [place] Patient denies any discharge needs at this time. CM will continue to follow and assist as needed with discharge planning / needs. Project Construction Manager: Bere Cruz DCPIA - Discharge Planning Initial Assessment Updated by [id number]: Bere Cruz on 02/14/19 7:24 pm * Preadmission Environment [facility] * [facility]. Mailing Address: [address] [place] [address]. Phone Number?: ?[phone] * ADLs Partial Dependent * List name and contact numbers for known caregivers / representatives who currently or will assist patient after discharge: IJEOMA BENITEZ - -DAUGHTER- [phone] * Verbal permission to speak to the caregivers and representatives has been obtained from the patient. N/A * Additional services required to return to the preadmission environment? No * Can the patient safely return to the preadmission environment? Yes * Has this patient been hospitalized within the prior 30 days at any hospital? No Coverage Notice Reviewer: [id number] Doyle Notice Issued Date-Time: 02/22/2019 9:50 Notice Type: IM Discharge Notice Notice Delivered To: Patient Relationship to Patient: Emergency Dept Tech Name: Delivery Method: HAND - Hand Delivered Isha Days: Prior Verbal Notification: Recipient Understood Notice: Yes Recipient Signature: Yes Med Rec Note Co-signed by Attending: Coverage Notice Comment: Reviewer: LISA Doyle Notice Issued Date-Time: 02/22/2019 9:50 Notice Type: Patient Choice Letter Notice Delivered To: Patient Relationship to Patient: Emergency Dept Tech Name: Delivery Method: HAND - Hand Delivered Isha Days: Prior Verbal Notification: Recipient Understood Notice: Yes Recipient Signature: Yes Med Rec Note Co-signed by Attending: Coverage Notice Comment: NO GROUP HOME PREFERENCE Last DP export: 02/25/19 8:37 am Patient Name: MAGDALENA ALVAREZ Page 54937 at 1333 All edits/amendments must be made on the electronic document DICTATION DATE: 02/25/19 1333 DISPOSAL WORKER: RADHA 02/25/19 1333 RPT#: [id number] [place] DATE: STATUS: ADM IN [facility] [address] [place] [address] END OF REPORT
--- NOTE | 2019-02-25 14:53 | MORECARE ---
CASE MANAGEMENT DISCHARGE SUMMARY PATIENT: MAGDALENA ALVAREZ UNIT: [id number] ADM DATE: 02/14/19 AGE: 68 : [birth year] SEX: F ROOM/BED: D.2200 AUTHOR: BEATRICE,DOC PHYSICIAN: REFERRING PHYSICIAN: BENEDICTO CALLAWAY MD DATE OF SERVICE: 02/25/19 Discharge Plan Patient Name: MAGDALENA ALVAREZ Facility: [facility] : 1950 Planned Disposition: Nursing Facility [facility] Cert Anticipated Discharge Date: Discharge Date: Expected LOS: Initial Reviewer: [id number] Initial Review Date: 02/14/2019 Generated: 02/25/19 3:52 pm Comments DCP- Discharge Planning Updated by [id number]: Pravin Doyle on 02/25/19 1:[address] Patient Name: MAGDALENA ALVAREZ Encounter No: [id number] : 1950 Primary Insurance: MEDICARE IP PART B ONLY Anticipated DC Date: Planned Disposition: Nursing Facility [facility] Cert External Planned Provider: [facility], LONG TERM CARE MEDICAID BED DCP follow-up note: CM RECEIVED CALL FROM [facility], THEY WILL ACCEPT TOMORROW WHEN OUTPATIENT DIALYSIS CLINIC IS ARRANGED. CM NOTIFIED BARTOLOME CARVAJAL OF [facility] WHO INFORMED CM THAT PT HAS NOT YET BEEN ACCEPTED AT DIALYSIS CLINIC. THE CLINIC DOES HAVE THE REFERRAL. WHEN DIALYSIS UNIT IS ARRANGED AND DISCHARGE IS RECEIVED, CALL NURSE REPORT TO [facility] AT [phone]; FAX DISCHARGE INFORMATION TO [facility] AT [phone]. [facility] TO ARRANGE VAN SOLDERER. MARIN Avina DCP- Discharge Planning Updated by [id number]: Pravin Doyle on 02/25/19 12:[address] Patient Name: MAGDALENA ALVAREZ Encounter No: [id number] : 1950 Primary Insurance: MEDICARE IP PART B ONLY Anticipated DC Date: Planned Disposition: Nursing Facility [facility] Cert External Planned Provider: [facility], LONG TERM CARE MEDICAID BED DCP follow-up note: CM FAXED REFERRAL UPDATE FOR MARK UP DESIGNER CARE PLACEMENT TO [facility], . CM WAITING ADMISSION DETERMINATION FROM [facility]. IF ACCEPTED, NOTIFRemi CARVAJAL OF [facility] FOR OUTPATIENT DIALYSIS CLINIC ARRANGEMENT. Pravin Doyle. CASE MANAGEMENT Appended by Pravin Doyle on 02/25/2019 13:28 CDT: [facility] ARRIVED TO EVALUATE PT, UPDATE PROVIDED. [facility] WILL MEET WITH PT AND EVALUATE FOR MARK UP DESIGNER CARE ADMISSION TO [facility]. CM WAITING ADMISSION DETERMINATION FROM [facility]. IF ACCEPTED, NOTIFRemi CARVAJAL OF [facility] FOR OUTPATIENT DIALYSIS CLINIC ARRANGEMENT. Pravin Doyle. CASE MANAGEMENT DCP- Discharge Planning Updated by [id number]: Pravin Doyle on 02/22/19 12:[address] Patient Name: MAGDALENA ALVAREZ Encounter No: [id number] : 1950 Primary Insurance: MEDICARE IP PART B ONLY Anticipated DC Date: Planned Disposition: Nursing Facility [facility] Cert External Planned Provider: [facility], LONG TERM CARE MEDICAID BED DCP follow-up note: CM SPOKE TO PT IN ROOM REGARDING DISCHARGE PLANNING AND NEEDS, INFORMED CM THAT [facility] WILL NOT ACCEPT BACK THEY CANNOT PROVIDE OUTPATIENT DIALYSIS TRANSPORTATION. CM DISCUSSED OPTIONS. PT ASKED TO BE KEPT CLOSE TO [facility] POSSIBLE HER SISTER IS IN RETIREMENT CARE AT [facility] AND THEY WERE SHARING A ROOM PRIOR TO THIS HOSPITAL STAY. PT ASKED CM TO CALL HER SISTER, ROSIO ADAMES, AND GRANDDAUGHTER, IJEOMA BENITEZ. CHOICE SIGNED FOR NO PREFERENCE ON PRISON PROVIDER, IMPORTANT MESSAGE FROM MEDICARE PROVIDED AND EXPLAINED. CM RECEIVED CALL FROM PT'S SISTER, ROSIO ADAMES, , PROVIDED UPDATE. CM CALLED PT'S GRANDDAUGHTER, IJEOMA BENITEZ, , WHO INFORMED CM THAT SHE WOULD LIKE REFERRAL SENT TO [facility] IN [place] [facility] WAS SUPPOSED TO BE MOVING PT'S SISTER TO LIVE WITH PT AT [facility]. CM CALLED [facility], , SPOKE TO SHANNON WHO INFORMED CM THAT THE RN OSTOMY WOULD REVIEW REFERRAL FOR ADMISSION AND ASKED FOR REFERRAL TO BE FAXED. CM FAXED REFERRAL FOR RETIREMENT CARE PLACEMENT TO [facility], . CM WAITING ADMISSION DETERMINATION FROM [facility]. IF ACCEPTED, NOTIFRemi CARVAJAL OF [facility] FOR OUTPATIENT DIALYSIS CLINIC ARRANGEMENT. Pravin Doyle. CASE MANAGEMENT DCP- Discharge Planning Updated by [id number]: Pravin Doyle on 02/21/19 3:[address] Patient Name: MAGDALENA ALVAREZ Encounter No: [id number] : 1950 Primary Insurance: MEDICARE IP PART B ONLY Anticipated DC Date: Planned Disposition: Nursing Facility [facility] Cert External Planned Provider: TO BE DETERMINED DCP follow-up note: CM CALLED [facility], ASKED IF THEY CAN ACCOMODATE DIALYSIS TRANSPORTATION. [facility] WILL CHECK AND CALL CM BACK. CM CALLED BACK AFTER LUNCH, SPOKE TO [facility] WHO INFORMED CM THAT THEY CANNOT TRANSPORT TO DIALYSIS AND PT WILL NEED OTHER PLACEMENT. [facility] REPORTS FAMILY WAS THINKING [facility] IN [place]. RN HOUSE NOTIFIED BARTOLOME OF [facility]. CM ATTEMPTED TO SEE PT TO DISCUSS MOVING TO ANOTHER NURSING FACILITY, PT WAS NOT IN ROOM. PATIENT WILL NEED A NEW MARK UP DESIGNER CARE PLACEMENT. CM TO DISCUSS WITH PT FOR CHOICE AND BEGIN NEW PLACEMENT EFFORTS. Pravin Doyle, CASE MANAGEMENT DCP- Discharge Planning Updated by [id number]: Bere Cruz on 02/19/19 2:[address] CM contacted [facility] in [facility] [phone] . CM informed staff that patient has been started on dialysis since she has been admitted. CM asked if they currently have any dialysis patients or if they accept dialysis patients. Staff replied that they currently don't have any dialysis patients. She requested for CM to fax records and she will have business support administrator look them over and call back tomorrow after review. CM will continue to follow and assist as needed with discharge planning / needs. DCP- Discharge Planning Updated by [id number]: Bere Cruz on 02/18/19 4:[address] CM notified Bartolome Carvajal via email of new patient starting hemodialysis and that patient is resident at [facility] in [facility]. CM will continue to follow and assist as needed with discharge planning / needs. DCP- Discharge Planning Updated by [email or web address]: Bere Cruz on 02/14/19 6:[address] Patient Name: MAGDALENA ALVAREZ Admission Status: ER Accout number: [id number] Admission Date: 02-14-2019 : 1950 Admission Diagnosis: Attending: BENEDICTO CALLAWAY Current LOS: 1 Anticipated DC Date: Planned Disposition: Nursing Facility [facility] Primary Insurance: MEDICARE IP PART B ONLY Discharge Planning Comments: CM met with patient at bedside. Patient states she lives at snf in [facility] ([place]) and plans to return there upon discharge. NICA completed for [place] Patient denies any discharge needs at this time. CM will continue to follow and assist as needed with discharge planning / needs. Neurosurgery Spine Physician: Bere Cruz DCPIA - Discharge Planning Initial Assessment Updated by [id number]: Bere Cruz on 02/14/19 7:24 pm * Preadmission Environment [facility] * Facility Name [facility]. Mailing Address: [address] [place] [address]. Phone Number?: ?[phone] * ADLs Partial Dependent * List name and contact numbers for known caregivers / representatives who currently or will assist patient after discharge: IJEOMA DON-ALLIE- [phone] * Verbal permission to speak to the caregivers and representatives has been obtained from the patient. N/A * Additional services required to return to the preadmission environment? No * Can the patient safely return to the preadmission environment? Yes * Has this patient been hospitalized within the prior 30 days at any hospital? No Coverage Notice Reviewer: [id number] Doyle Notice Issued Date-Time: 02/22/2019 9:50 Notice Type: IM Discharge Notice Notice Delivered To: Patient Relationship to Patient: Import Coordinator Name: Delivery Method: HAND - Hand Delivered Isha Days: Prior Verbal Notification: Recipient Understood Notice: Yes Recipient Signature: Yes Med Rec Note Co-signed by Attending: Coverage Notice Comment: Reviewer: [id number] Analilia Doyle Notice Issued Date-Time: 02/22/2019 9:50 Notice Type: Patient Choice Letter Notice Delivered To: Patient Relationship to Patient: Import Coordinator Name: Delivery Method: HAND - Hand Delivered Isha Days: Prior Verbal Notification: Recipient Understood Notice: Yes Recipient Signature: Yes Med Rec Note Co-signed by Attending: Coverage Notice Comment: NO PRISON PREFERENCE Last DP export: 02/25/19 12:33 pm Patient Name: MAGDALENA ALVAREZ Page [id number] at 1453 All edits/amendments must be made on the electronic document DICTATION DATE: 02/25/191451 FRONT DESK ADMIN: RADHA 02/25/191451 RPT#: [id number] DC DATE: STATUS: ADM IN [facility] [address] [place] [address] END OF REPORT
--- NOTE | 2019-02-25 15:13 | MORECARE ---
CASE MANAGEMENT DISCHARGE SUMMARY PATIENT: MAGDALENA ALVAREZ UNIT: [id number] ADM DATE: 02/14/19 AGE: 68 : [birth year] SEX: F ROOM/BED: D.0060 AUTHOR: BEATRICE,DOC PHYSICIAN: REFERRING PHYSICIAN: BENEDICTO CALLAWAY MD DATE OF SERVICE: 02/25/19 Discharge Plan Patient Name: MAGDALENA ALVAREZ Facility: [facility] : 1950 Planned Disposition: Nursing Facility [facility] Cert Anticipated Discharge Date: Discharge Date: Expected LOS: Initial Reviewer: [id number] Initial Review Date: 02/14/2019 Generated: 02/25/19 4:13 pm Comments DCP- Discharge Planning Updated by [id number]: Pravin Doyle on 02/25/19 2:[address] Patient Name: MAGDALENA ALVAREZ Encounter No: [id number] : 1950 Primary Insurance: MEDICARE IP PART B ONLY Anticipated DC Date: Planned Disposition: Nursing Facility [facility] Cert External Planned Provider: [facility], LONG TERM CARE MEDICAID BED DCP follow-up note: CM RECEIVED CALL FROM [facility], THEY WILL ACCEPT TOMORROW WHEN OUTPATIENT DIALYSIS CLINIC IS ARRANGED. CM NOTIFIED BARTOLOME CARVAJAL OF [facility] WHO INFORMED CM THAT PT HAS NOT YET BEEN ACCEPTED AT DIALYSIS CLINIC. THE CLINIC DOES HAVE THE REFERRAL. WHEN DIALYSIS UNIT IS ARRANGED AND DISCHARGE IS RECEIVED, CALL NURSE REPORT TO [facility] AT [phone]; FAX DISCHARGE INFORMATION TO [facility] AT [phone]. [facility] TO ARRANGE VAN SLOT TECHNICIAN. Pravin Doyle, CASE MANGEMENT Appended by Pravin Doyle on 02/25/2019 15:09 CDT: Patient notified and in agreement with discharge plan to [facility] in [place]. Important Message from Medicare provided and explained. andreina Ivan DCP- Discharge Planning Updated by [id number]: Pravin Doyle on 02/25/19 12:[address] Patient Name: MAGDALENA ALVAREZ Encounter No: [id number] : 1950 Primary Insurance: MEDICARE IP PART B ONLY Anticipated DC Date: Planned Disposition: Nursing Facility [facility] Cert External Planned Provider: [facility], LONG TERM CARE MEDICAID BED DCP follow-up note: CM FAXED REFERRAL UPDATE FOR SITE MANAGER CARE PLACEMENT TO [facility], . CM WAITING ADMISSION DETERMINATION FROM [facility]. IF ACCEPTED, NOTIFRemi CARVAJAL OF [facility] FOR OUTPATIENT DIALYSIS CLINIC ARRANGEMENT. Pravin Doyle. CASE MANAGEMENT Appended by Pravin Doyle on 02/25/2019 13:28 CDT: [facility] ARRIVED TO EVALUATE PT, UPDATE PROVIDED. [facility] WILL MEET WITH PT AND EVALUATE FOR SITE MANAGER CARE ADMISSION TO [facility]. CM WAITING ADMISSION DETERMINATION FROM [facility]. IF ACCEPTED, NOTIFRemi CARVAJAL OF [facility] FOR OUTPATIENT DIALYSIS CLINIC ARRANGEMENT. Pravin Doyle. CASE MANAGEMENT DCP- Discharge Planning Updated by [id number]: Pravin Doyle on 02/22/19 12:[address] Patient Name: MAGDALENA ALVAREZ Encounter No: [id number] : 1950 Primary Insurance: MEDICARE IP PART B ONLY Anticipated DC Date: Planned Disposition: Nursing Facility [facility] Cert External Planned Provider: [facility], LONG TERM CARE MEDICAID BED DCP follow-up note: CM SPOKE TO PT IN ROOM REGARDING DISCHARGE PLANNING AND NEEDS, INFORMED CM THAT [facility] WILL NOT ACCEPT BACK THEY CANNOT PROVIDE OUTPATIENT DIALYSIS TRANSPORTATION. CM DISCUSSED OPTIONS. PT ASKED TO BE KEPT CLOSE TO [facility] POSSIBLE HER SISTER IS IN SITE MANAGER CARE AT [facility] AND THEY WERE SHARING A ROOM PRIOR TO THIS HOSPITAL STAY. PT ASKED CM TO CALL HER SISTER, ROSIO ADAMES, AND GRANDDAUGHTER, IJEOMA BENITEZ. CHOICE SIGNED FOR NO PREFERENCE ON CUSTODIAL PROVIDER, IMPORTANT MESSAGE FROM MEDICARE PROVIDED AND EXPLAINED. CM RECEIVED CALL FROM PT'S SISTER, ROSIO ADAMES, , PROVIDED UPDATE. CM CALLED PT'S GRANDDAUGHTER, IJEOMA BENITEZ, , WHO INFORMED CM THAT SHE WOULD LIKE REFERRAL SENT TO [facility] IN [place] [facility] WAS SUPPOSED TO BE MOVING PT'S SISTER TO LIVE WITH PT AT [facility]. CM CALLED [facility], , SPOKE TO SHANNON WHO INFORMED CM THAT THE SPEAKER WIRER WOULD REVIEW REFERRAL FOR ADMISSION AND ASKED FOR REFERRAL TO BE FAXED. CM FAXED REFERRAL FOR GROUP HOME CARE PLACEMENT TO [facility], . CM WAITING ADMISSION DETERMINATION FROM [facility]. IF ACCEPTED, NOTIFRemi CARVAJAL OF [facility] FOR OUTPATIENT DIALYSIS CLINIC ARRANGEMENT. Pravin Doyle. CASE MANAGEMENT DCP- Discharge Planning Updated by [id number]: Pravin Doyle on 02/21/19 3:[address] Patient Name: MAGDALENA ALVAREZ Encounter No: [id number] : 1950 Primary Insurance: MEDICARE IP PART B ONLY Anticipated DC Date: Planned Disposition: Nursing Facility [facility] Cert External Planned Provider: TO BE DETERMINED DCP follow-up note: CM CALLED [facility], ASKED IF THEY CAN ACCOMODATE DIALYSIS TRANSPORTATION. [facility] WILL CHECK AND CALL CM BACK. CM CALLED BACK AFTER LUNCH, SPOKE TO [facility] WHO INFORMED CM THAT THEY CANNOT TRANSPORT TO DIALYSIS AND PT WILL NEED OTHER PLACEMENT. GIN REPORTS FAMILY WAS THINKING [facility] IN [place]. RN CM HOUSE NOTIFIED BARTOLOME OF [facility]. CM ATTEMPTED TO SEE PT TO DISCUSS MOVING TO ANOTHER NURSING FACILITY, PT WAS NOT IN ROOM. PATIENT WILL NEED A NEW SITE MANAGER CARE PLACEMENT. CM TO DISCUSS WITH PT FOR CHOICE AND BEGIN NEW PLACEMENT EFFORTS. Pravin Doyle, CASE MANAGEMENT DCP- Discharge Planning Updated by [id number]: Bere Cruz on 02/19/19 2:[address] CM contacted [facility] in [facility] [phone] . CM informed staff that patient has been started on dialysis since she has been admitted. CM asked if they currently have any dialysis patients or if they accept dialysis patients. Staff replied that they currently don't have any dialysis patients. She requested for CM to fax records and she will have lan administrator look them over and call back tomorrow after review. CM will continue to follow and assist as needed with discharge planning / needs. DCP- Discharge Planning Updated by [id number]: Bere Cruz on 02/18/19 4:[address] CM notified Bartolome Carvajal via email of new patient starting hemodialysis and that patient is resident at [facility] in [facility]. CM will continue to follow and assist as needed with discharge planning / needs. DCP- Discharge Planning Updated by [id number]: Bere Cruz on 02/14/19 6:[address] Patient Name: MAGDALENA ALVAREZ Admission Status: ER Accout number: [id number] Admission Date: 02-14-2019 : 1950 Admission Diagnosis: Attending: BENEDICTO CALLAWAY Current LOS: 1 Anticipated DC Date: Planned Disposition: Nursing Facility [facility] Primary Insurance: MEDICARE IP PART B ONLY Discharge Planning Comments: CM met with patient at bedside. Patient states she lives at retirement in [facility] and plans to return there upon discharge. NICA completed for [place] Patient denies any discharge needs at this time. CM will continue to follow and assist as needed with discharge planning / needs. Lighting Designer: Bere Cruz DCPIA - Discharge Planning Initial Assessment Updated by [id number]: Bere Nancy on 02/14/19 7:24 pm * Preadmission Environment [employer]bound [employer] * Facility Name [facility]. Mailing Address: [address] [place] [address]. Phone Number?: ?[phone] * ADLs Partial Dependent * List name and contact numbers for known caregivers / representatives who currently or will assist patient after discharge: IJEOMA BENITEZ - GRAND-DAUGHTER- [phone] * Verbal permission to speak to the caregivers and representatives has been obtained from the patient. N/A * Additional services required to return to the preadmission environment? No * Can the patient safely return to the preadmission environment? Yes * Has this patient been hospitalized within the prior 30 days at any hospital? No Coverage Notice Reviewer: [id number] Doyle Notice Issued Date-Time: 02/22/2019 9:50 Notice Type: IM Discharge Notice Notice Delivered To: Patient Relationship to Patient: Shafting Worker Name: Delivery Method: HAND - Hand Delivered Isha Days: Prior Verbal Notification: Recipient Understood Notice: Yes Recipient Signature: Yes Med Rec Note Co-signed by Attending: Coverage Notice Comment: Reviewer: [id number] Doyle Notice Issued Date-Time: 02/22/2019 9:50 Notice Type: Patient Choice Letter Notice Delivered To: Patient Relationship to Patient: Shafting Worker Name: Delivery Method: HAND - Hand Delivered Isha Days: Prior Verbal Notification: Recipient Understood Notice: Yes Recipient Signature: Yes Med Rec Note Co-signed by Attending: Coverage Notice Comment: NO CUSTODIAL PREFERENCE Reviewer: [id number] - Pravin Doyle Notice Issued Date-Time: 02/25/2019 14:50 Notice Type: IM Discharge Notice Notice Delivered To: Patient Relationship to Patient: Shafting Worker Name: Delivery Method: HAND - Hand Delivered Isha Days: Prior Verbal Notification: Recipient Understood Notice: Yes Recipient Signature: Yes Med Rec Note Co-signed by Attending: Coverage Notice Comment: Last DP export: 02/25/19 1:53 pm Patient Name: MAGDALENA ALVAREZ Page [id number] at 1513 All edits/amendments must be made on the electronic document DICTATION DATE: 02/25/19 151 JUDO INSTRUCTOR: RADHA 02/25/19 151 RPT#: [id number] DC DATE: STATUS: ADM IN [facility] [address] [place] [address] END OF REPORT
[2019-02-25 15:41] VITALS: BP 133/86
--- NOTE | 2019-02-25 19:32 | NUR ---
PATIENT LAYING IN BED. EYES CLOSED, CHEST RISING AND FALLING. NO DISTRESS NOTED.
[2019-02-25 20:44] VITALS: BP 134/43
[2019-02-26 00:45] VITALS: BP 138/50
[2019-02-26 06:02] LABS: BASOPHILS 0.1 % (0-2); EOSINOPHILS 3.5 % (0-7); HEMATOCRIT 30.5 % (36.0-48.0); HEMOGLOBIN 9.7 g/dL (12-16); IMMATURE GRANULOCYTES 0.8 % (0-5); LYMPHOCYTES 7.5 % (15-50); MCH 27.5 pg (26.0-34.0); MCHC 31.8 g/dL (31.0-37.0); MCV 86.4 fL (80.0-100.0); MEAN PLATELET VOLUME 10.5 fL (7.4-10.4); MONOCYTES 15.5 % (2-11); NEUTROPHILS 72.6 % (40-80); PLATELET COUNT 136 10x3/uL (130-400); RBC 3.53 10x6/uL (4.00-5.40); RDW 14.8 % (11.5-14.5); WBC 7.1 10x3/uL (4.8-10.8)
[2019-02-26 06:26] LABS: ALBUMIN 2.3 g/dL (3.4-5.0); ANION GAP 19.9 mmol/L (8-16); BILIRUBIN - TOTAL 0.42 mg/dL (0.2-1.3); CALCIUM 8.5 mg/dL (8.5-10.1); CARBON DIOXIDE 20.2 mmol/L (21.0-32.0); PHOSPHOROUS 8.5 mg/dL (2.5-4.9); POTASSIUM - SERUM 4.1 mmol/L (3.5-5.1); PROTEIN - SERUM 6.4 g/dL (6.4-8.2); URIC ACID 6.7 mg/dL (2.6-7.2)
[2019-02-26 06:39] VITALS: BP 140/52
[2019-02-26 07:45] VITALS: BP 121/45
--- NOTE | 2019-02-26 08:20 | NUR ---
PT RESTING IN BED, SHIFT ASSESSMENT PERFORMED. DENIES ANY NEEDS AT THIS TIME. WILL CONT TO FOLLOW POC
--- NOTE | 2019-02-26 08:45 | MORECARE ---
CASE MANAGEMENT DISCHARGE SUMMARY PATIENT: MAGDALENA ALVAREZ UNIT: [id number] ADM DATE: 02/14/19 AGE: 68 : [birth year] SEX: F ROOM/BED: D.8503 AUTHOR: BEATRICE,DOC PHYSICIAN: REFERRING PHYSICIAN: BENEDICTO CALLAWAY MD DATE OF SERVICE: 02/26/19 Discharge Plan Patient Name: MAGDALENA ALVAREZ Facility: [facility] : 1950 Planned Disposition: Nursing Facility [facility] Cert Anticipated Discharge Date: 02/26/19 Discharge Date: Expected LOS: 12 Initial Reviewer: [id number] Initial Review Date: 02/14/2019 Generated: 02/26/19 9:44 am Comments DCP- Discharge Planning Updated by [id number]: Pravin Doyle on 02/25/19 2:[address] Patient Name: MAGDALENA ALVAREZ Encounter No: [id number] : 1950 Primary Insurance: MEDICARE IP PART B ONLY Anticipated DC Date: Planned Disposition: Nursing Facility [facility] Cert External Planned Provider: [facility] [place], LONG TERM CARE MEDICAID BED DCP follow-up note: CM RECEIVED CALL FROM GERA OF [facility] [place], THEY WILL ACCEPT TOMORROW WHEN OUTPATIENT DIALYSIS CLINIC IS ARRANGED. CM NOTIFIED BARTOLOME CARVAJAL OF [facility] WHO INFORMED CM THAT PT HAS NOT YET BEEN ACCEPTED AT DIALYSIS CLINIC. THE CLINIC DOES HAVE THE REFERRAL. WHEN DIALYSIS UNIT IS ARRANGED AND DISCHARGE IS RECEIVED, CALL NURSE REPORT TO [facility] [place] AT [phone]; FAX DISCHARGE INFORMATION TO [facility] AT [phone]. [facility] [place] TO ARRANGE VAN ROUTE SPECIALIST. Pravin Doyle, CASE MANGEMENT Appended by Pravin Doyle on 02/25/2019 15:09 CDT: Patient notified and in agreement with discharge plan to [facility] in [place]. Important Message from Medicare provided and explained. andreina Ivan DCP- Discharge Planning Updated by [id number]: Pravin Doyle on 02/25/19 12:[address] Patient Name: MAGDALENA ALVAREZ Encounter No: [id number] : 1950 Primary Insurance: MEDICARE IP PART B ONLY Anticipated DC Date: Planned Disposition: Nursing Facility [facility] Cert External Planned Provider: [facility], LONG TERM CARE MEDICAID BED DCP follow-up note: CM FAXED REFERRAL UPDATE FOR HORSE TREKKING GUIDE CARE PLACEMENT TO [place] OF [facility] [place], . CM WAITING ADMISSION DETERMINATION FROM [facility] [place]. IF ACCEPTED, NOTIFRemi CARVAJAL OF [facility] FOR OUTPATIENT DIALYSIS CLINIC ARRANGEMENT. rPavin Doyle. CASE MANAGEMENT Appended by Pravin Doyle on 02/25/2019 13:28 CDT: [facility] OF [facility] ARRIVED TO EVALUATE PT, UPDATE PROVIDED. GERA WILL MEET WITH PT AND EVALUATE FOR HORSE TREKKING GUIDE CARE ADMISSION TO [facility]. CM WAITING ADMISSION DETERMINATION FROM [facility] [place]. IF ACCEPTED, NOTIFRemi CARVAJAL OF [facility] FOR OUTPATIENT DIALYSIS CLINIC ARRANGEMENT. Pravin Doyle. CASE MANAGEMENT DCP- Discharge Planning Updated by [id number]: Pravin Doyle on 02/22/19 12:[address] Patient Name: MAGDALENA ALVAREZ Encounter No: [id number] : 1950 Primary Insurance: MEDICARE IP PART B ONLY Anticipated DC Date: Planned Disposition: Nursing Facility [facility] Cert External Planned Provider: [facility], LONG TERM CARE MEDICAID BED DCP follow-up note: CM SPOKE TO PT IN ROOM REGARDING DISCHARGE PLANNING AND NEEDS, INFORMED CM THAT [place] WILL NOT ACCEPT BACK THEY CANNOT PROVIDE OUTPATIENT DIALYSIS TRANSPORTATION. CM DISCUSSED OPTIONS. PT ASKED TO BE KEPT CLOSE TO [facility] POSSIBLE HER SISTER IS IN HORSE TREKKING GUIDE CARE AT [facility] AND THEY WERE SHARING A ROOM PRIOR TO THIS HOSPITAL STAY. PT ASKED CM TO CALL HER SISTER, ROSIO ADAMES, AND GRANDDAUGHTER, IJEOMA BENITEZ. CHOICE SIGNED FOR NO PREFERENCE ON SENIOR LIVING PROVIDER, IMPORTANT MESSAGE FROM MEDICARE PROVIDED AND EXPLAINED. CM RECEIVED CALL FROM PT'S SISTER, ROSIO ADAMES, , PROVIDED UPDATE. CM CALLED PT'S GRANDDAUGHTER, IJEOMA BENITEZ, , WHO INFORMED CM THAT SHE WOULD LIKE REFERRAL SENT TO [facility] IN [place] WAS SUPPOSED TO BE MOVING PT'S SISTER TO LIVE WITH PT AT [facility]. CM CALLED [facility] [place], , SPOKE TO SHANNON WHO INFORMED CM THAT THE MECHANIC AND WELDER WOULD REVIEW REFERRAL FOR ADMISSION AND ASKED FOR REFERRAL TO BE FAXED. CM FAXED REFERRAL FOR SENIOR LIVING CARE PLACEMENT TO [place] OF [facility] [place], . CM WAITING ADMISSION DETERMINATION FROM [facility] [place]. IF ACCEPTED, NOTIFRemi CARVAJAL OF [facility] FOR OUTPATIENT DIALYSIS CLINIC ARRANGEMENT. Pravin Doyle. CASE MANAGEMENT DCP- Discharge Planning Updated by [id number]: Pravin Doyle on 02/21/19 3:[address] Patient Name: MAGDALENA ALVAREZ Encounter No: [id number] : 1950 Primary Insurance: MEDICARE IP PART B ONLY Anticipated DC Date: Planned Disposition: Nursing Facility [facility] Cert External Planned Provider: TO BE DETERMINED DCP follow-up note: CM CALLED [facility] [place], ASKED IF THEY CAN ACCOMODATE DIALYSIS TRANSPORTATION. [facility] WILL CHECK AND CALL CM BACK. CM CALLED BACK AFTER LUNCH, SPOKE TO [facility] WHO INFORMED CM THAT THEY CANNOT TRANSPORT TO DIALYSIS AND PT WILL NEED OTHER PLACEMENT. GIN REPORTS FAMILY WAS THINKING [facility] IN [place]. RN CM HOUSE NOTIFIED BARTOLOME OF [facility]. CM ATTEMPTED TO SEE PT TO DISCUSS MOVING TO ANOTHER NURSING FACILITY, PT WAS NOT IN ROOM. PATIENT WILL NEED A NEW SENIOR LIVING CARE PLACEMENT. CM TO DISCUSS WITH PT FOR CHOICE AND BEGIN NEW PLACEMENT EFFORTS. Pravin Doyle, CASE MANAGEMENT DCP- Discharge Planning Updated by [id number]: Bere Cruz on 02/19/19 2:[address] CM contacted [facility] in [facility] [phone] . CM informed staff that patient has been started on dialysis since she has been admitted. CM asked if they currently have any dialysis patients or if they accept dialysis patients. Staff replied that they currently don't have any dialysis patients. She requested for CM to fax records and she will have order entry administrator look them over and call back tomorrow after review. CM will continue to follow and assist as needed with discharge planning / needs. DCP- Discharge Planning Updated by [email or web address]: Bere Cruz on 02/18/19 4:[address] CM notified Bartolome Carvajal via email of new patient starting hemodialysis and that patient is resident at [facility] in [facility]. CM will continue to follow and assist as needed with discharge planning / needs. DCP- Discharge Planning Updated by [id number]: Bere Cruz on 02/14/19 6:[address] Patient Name: MAGDALENA ALVAREZ Admission Status: ER Accout number: [id number] Admission Date: 02-14-2019 : 1950 Admission Diagnosis: Attending: BENEDICTO CALLAWAY Current LOS: 1 Anticipated DC Date: Planned Disposition: Nursing Facility [facility] Primary Insurance: MEDICARE IP PART B ONLY Discharge Planning Comments: CM met with patient at bedside. Patient states she lives at [facility] ([place]) and plans to return there upon discharge. NICA completed for [place] Patient denies any discharge needs at this time. CM will continue to follow and assist as needed with discharge planning / needs. Product Lead: Bere Cruz DCPIA - Discharge Planning Initial Assessment Updated by [id number]: Bere Cruz on 02/14/19 7:24 pm * Preadmission Environment Optimization Specialist Mcfp * Facility Name [facility]. Mailing Address: [address] [place] [address]. Phone Number?: ?[phone] * ADLs Partial Dependent * List name and contact numbers for known caregivers / representatives who currently or will assist patient after discharge: IJEOMA BENITEZ - -DAUGHTER- [phone] * Verbal permission to speak to the caregivers and representatives has been obtained from the patient. N/A * Additional services required to return to the preadmission environment? No * Can the patient safely return to the preadmission environment? Yes * Has this patient been hospitalized within the prior 30 days at any hospital? No Coverage Notice Reviewer: [id number] Doyle Notice Issued Date-Time: 02/22/2019 9:50 Notice Type: IM Discharge Notice Notice Delivered To: Patient Relationship to Patient: Vessel Welder Name: Delivery Method: HAND - Hand Delivered Isha Days: Prior Verbal Notification: Recipient Understood Notice: Yes Recipient Signature: Yes Med Rec Note Co-signed by Attending: Coverage Notice Comment: Reviewer: [id number] Doyle Notice Issued Date-Time: 02/22/2019 9:50 Notice Type: Patient Choice Letter Notice Delivered To: Patient Relationship to Patient: Vessel Welder Name: Delivery Method: HAND - Hand Delivered Isha Days: Prior Verbal Notification: Recipient Understood Notice: Yes Recipient Signature: Yes Med Rec Note Co-signed by Attending: Coverage Notice Comment: NO SENIOR LIVING PREFERENCE Reviewer: [id number] Analilia Doyle Notice Issued Date-Time: 02/25/2019 14:50 Notice Type: IM Discharge Notice Notice Delivered To: Patient Relationship to Patient: Vessel Welder Name: Delivery Method: HAND - Hand Delivered Isha Days: Prior Verbal Notification: Recipient Understood Notice: Yes Recipient Signature: Yes Med Rec Note Co-signed by Attending: Coverage Notice Comment: Last DP export: 02/25/19 2:13 pm Patient Name: MAGDALENA ALVAREZ Page [id number] at 0845 All edits/amendments must be made on the electronic document DICTATION DATE: 02/26/19843 SITE DIRECTOR: RADHA 02/26/1945 RPT#: [id number] DC DATE: STATUS: ADM IN [facility] [address] [place] [address] END OF REPORT
--- NOTE | 2019-02-26 10:00 | NUR ---
PT LEFT FLOOR FOR DIALYSIS
--- NOTE | 2019-02-26 12:18 | NUR ---
PAGED AND RELAYED MESSAGE FROM CHRISTIANE COLON APRN: PT'S NEW HEMESPLIT IS ONLY ABLE TO PULL AT 200 EVEN AFTER ACTIVASE AND THAT SHE MAY NEED NEW HEMESPLIT PLACED BEFORE D/C TO NH.
--- NOTE | 2019-02-26 13:45 | NUR ---
PT SITTING IN CHAIR EATING LUNCH, DENIES ANY NEEDS AT THIS TIME, WILL CONT TO FOLLOW POC
--- NOTE | 2019-02-26 14:06 | NUR ---
Nutrition follow-up: Diet: Renal PO intake 25-50% of meals; pt has been asking for toya and grill cheese sandwiches being order by nurse. Labs reviewed; PO4 elevated due to noncompliant with renal diet. Wt: 123# +BM RDN following.
--- NOTE | 2019-02-26 19:00 | NUR ---
PATIENT LAYING IN BED. NO COMPLAINTS AT THIS TIME. NO DISTRESS NOTED.
[2019-02-26 20:00] VITALS: BP 120/42
[2019-02-27] VITALS: BP 132/73
--- NOTE | 2019-02-27 | NUR ---
PATIENT LAYING IN BED, EYES CLOSED, CHEST RISING AND FALLING. NO DISTRESS NOTED.
[2019-02-27 04:30] VITALS: BP 112/45
[2019-02-27 06:55] LABS: HEMATOCRIT 30.4 % (36.0-48.0); HEMOGLOBIN 9.7 g/dL (12-16); MCH 27.3 pg (26.0-34.0); MCHC 31.9 g/dL (31.0-37.0); MCV 85.6 fL (80.0-100.0); MEAN PLATELET VOLUME 11.2 fL (7.4-10.4); PLATELET COUNT 143 10x3/uL (130-400); RBC 3.55 10x6/uL (4.00-5.40); RDW 14.9 % (11.5-14.5); WBC 7.2 10x3/uL (4.8-10.8)
[2019-02-27 07:32] LABS: ALBUMIN 2.4 g/dL (3.4-5.0); ANION GAP 16.6 mmol/L (8-16); BILIRUBIN - TOTAL 0.62 mg/dL (0.2-1.3); CALCIUM 8.5 mg/dL (8.5-10.1); CARBON DIOXIDE 24.9 mmol/L (21.0-32.0); CREATININE - SERUM 7.5 mg/dL (0.6-1.3); POTASSIUM - SERUM 3.5 mmol/L (3.5-5.1); PROTEIN - SERUM 6.5 g/dL (6.4-8.2)
--- NOTE | 2019-02-27 07:45 | NUR ---
AM ROUNDS COMPLETED. INTRODUCED MYSELF TO PT PRIMARY RN FOR TODAYS SHIFT. PT IS A&O SITTING UP IN BED RESTING QUIETLY. SHIFT ASSESSMENT COMPLETED. PT IS NPO FOR PLANNED PROCEDURE TODAY TO HAVE NONWORKING HEMESPLIT REMOVED AND NEW ONE PLACED. CONSENTS ARE SIGNED AND PT DENIES ANY QUESTIONS OR CONCERNS. NO CURRENT NEEDS AT THIS TIME. WILL AWAIT PRE-OP ORDERS.
[2019-02-27 08:05] LABS: EOSINOPHILS 3 % (0-7); LYMPHOCYTES 12 % (15-50); MONOCYTES 14 % (2-11); NEUTROPHILS 70 % (40-80); PLATELET ESTIMATE NORMAL
[2019-02-27 09:17] VITALS: BP 143/54
--- NOTE | 2019-02-27 11:44 | NUR ---
SURGERY CALLED TO PRE-OP PT. PRE-OP MEDICATIONS GIVEN ORDERED. PT SITTING UP IN BED READY TO GO. NO CURRENT NEEDS AT THIS TIME.
--- NOTE | 2019-02-27 12:31 | NUR ---
SURGERY HERE NOW TO TAKE PT FOR HEMESPLIT PLACEMENT. PT READY TO GO AND LEAVING VIA BED. NO IMMEDIATE NEEDS. WILL CTM.
[2019-02-27 13:34] VITALS: BP 127/52
--- NOTE | 2019-02-27 15:37 | NUR ---
PT BACK FROM PROCEDURE A&O AWAKE SITTING UP IN BED RESTING QUIETLY. VSS AND BEING MONITERED PER POST PROCEDURE POLICY. PT HAS A NEW HEMESPLIT TO HER L.CHEST AND OLD ONE WAS REMOVED. DRSG CDI AND BIOPATCH IN PLACE, SCANT AMOUNT OF BLOOD NOTED BUT NOT CURRENTLY BLEEDING. PT IS HUNGRY SO I ORDERED HER A TRAY. PT DENIES ANY CURRENT NEEDS. WILL CTM.
--- NOTE | 2019-02-27 15:45 | NUR ---
NOTIFIED MILENA BORJA APN THAT PT WAS BACK AND WITH NEW ACCESS AND NEEDING DIALYSIS SHE MAY GET TO D/C LATE TODAY OR EARLY AM. WILL AWAIT ORDERS. NO CURRENT NEEDS.
--- NOTE | 2019-02-27 17:09 | MORECARE ---
CASE MANAGEMENT DISCHARGE SUMMARY PATIENT: MAGDALENA ALVAREZ UNIT: [id number] ADM DATE: 02/14/19 AGE: 68 : 49 SEX: F ROOM/BED: D.2790 AUTHOR: BEATRICE,DOC PHYSICIAN: REFERRING PHYSICIAN: BENEDICTO CALLAWAY MD DATE OF SERVICE: 02/27/19 Discharge Plan Patient Name: MAGDALENA ALVAREZ Facility: [facility] : 1950 Planned Disposition: Nursing Facility [facility] Cert Anticipated Discharge Date: 02/26/19 Discharge Date: Expected LOS: 12 Initial Reviewer: [id number] Initial Review Date: 02/14/2019 Generated: 02/27/19 6:09 pm Comments DCP- Discharge Planning Updated by [id number]: Pravin Doyle on 02/27/19 4:[address] Patient Name: MAGDALENA ALVAREZ Encounter No: [id number] : 1950 Primary Insurance: MEDICARE IP PART B ONLY Anticipated DC Date: 02-26-2019 Planned Disposition: Nursing Facility [facility] Cert External Planned Provider:[facility], [facility] MEDICAID BED DCP follow-up note: CM RECEIVED CALL FROM BARTOLOME OF [facility], PT HAS BEEN ACCEPTED AT [facility] FOR SCHEDULE OF MWF, 1:45PM ARRIVAL TIME FOR 2PM CHAIR; FIRST APPOINTMENT 03-01-19 AT 1:15PM. CM CALLED WALTER OF [facility], , NOTIFIED OF ABOVE, MATILDA MAY NOT HAVE TRANSPORT TOMORROW DUE TO HOLIDAY AND WILL ELECTRONIC COMPONENT PROCESSOR PT AT 0900 ON 03-01-19, AND ACCEPT TO FACLITY / TRANSPORT TO FIRST OUTPATIENT DIALYSIS. CM NOTIFIED [facility] OF [facility], FAXED UPDATE AND OUTPATIENT DIALYSIS WELCOME LETTER TO [facility] VIA GERA AT [phone]. COPY OF WELCOME LETTER PLACED IN PAPER CHART. BEDSIDE NURSE NOTIFIED. MIO PLANS TO ELECTRONIC COMPONENT PROCESSOR PT ON 03-01-19 AT 0900 AM. WHEN DISCHARGE IS RECEIVED, CALL NURSE REPORT TO [facility] AT [phone]; FAX DISCHARGE INFORMATION TO [facility] AT [phone]. [facility] TO ARRANGE VAN ELECTRONIC COMPONENT PROCESSOR FOR 03-01-19 AT 0900AM. MARIN Avina MANGEMENT DCP- Discharge Planning Updated by [id number]: Pravin Doyle on 02/25/19 2:[address] Patient Name: MAGDALENA ALVAREZ Encounter No: [id number] : 1950 Primary Insurance: MEDICARE IP PART B ONLY Anticipated DC Date: Planned Disposition: Nursing Facility [facility] Cert External Planned Provider: [facility], LONG TERM CARE MEDICAID BED DCP follow-up note: CM RECEIVED CALL FROM GERA [facility], THEY WILL ACCEPT TOMORROW WHEN OUTPATIENT DIALYSIS CLINIC IS ARRANGED. CM NOTIFIED BARTOLOME CARVAJAL OF [facility] WHO INFORMED CM THAT PT HAS NOT YET BEEN ACCEPTED AT DIALYSIS CLINIC. THE CLINIC DOES HAVE THE REFERRAL. WHEN DIALYSIS UNIT IS ARRANGED AND DISCHARGE IS RECEIVED, CALL NURSE REPORT TO [facility] AT [phone]; FAX DISCHARGE INFORMATION TO [facility] AT [phone]. [facility] TO ARRANGE VAN ELECTRONIC COMPONENT PROCESSOR. MARIN Avina MANGEMENT Appended by Pravin Doyle on 02/25/2019 15:09 CDT: Patient notified and in agreement with discharge plan to [facility] in [place]. Important Message from Medicare provided and explained. marin Ivan DCP- Discharge Planning Updated by [id number]: Pravin Doyle on 02/25/19 12:[address] Patient Name: MAGDALENA ALVAREZ Encounter No: [id number] : 1950 Primary Insurance: MEDICARE IP PART B ONLY Anticipated DC Date: Planned Disposition: Nursing Facility [facility] Cert External Planned Provider: [facility], LONG TERM CARE MEDICAID BED DCP follow-up note: CM FAXED REFERRAL UPDATE FOR [facility] PLACEMENT TO [facility], . CM WAITING ADMISSION DETERMINATION FROM [facility]. IF ACCEPTED, NOTIFY BARTOLOME CARVAJAL OF [facility] FOR OUTPATIENT DIALYSIS CLINIC ARRANGEMENT. Pravin Doyle. CASE MANAGEMENT Appended by Pravin Doyle on 02/25/2019 13:28 CDT: [facility] TO [facility]AL[facility]ATE PT, UPDATE PROVIDED. [facility] WILL MEET WITH PT AND EVALUATE FOR [facility] ADMISSION TO [facility]. CM WAITING ADMISSION DETERMINATION FROM [facility]. IF ACCEPTED, NOTIFY BARTOLOME CARVAJAL OF [facility] FOR OUTPATIENT DIALYSIS CLINIC ARRANGEMENT. Pravin Doyle. CASE MANAGEMENT DCP- Discharge Planning Updated by [id number]: Pravin Doyle on 02/22/19 12:[address] Patient Name: MAGDALENA ALVAREZ Encounter No: [id number] : 1950 Primary Insurance: MEDICARE IP PART B ONLY Anticipated DC Date: Planned Disposition: Nursing Facility [facility] Cert External Planned Provider: [facility], LONG TERM CARE MEDICAID BED DCP follow-up note: CM SPOKE TO PT IN ROOM REGARDING DISCHARGE PLANNING AND NEEDS, INFORMED CM THAT [facility] WILL NOT ACCEPT BACK THEY CANNOT PROVIDE OUTPATIENT DIALYSIS TRANSPORTATION. CM DISCUSSED OPTIONS. PT ASKED TO BE KEPT CLOSE TO [facility] POSSIBLE HER SISTER IS IN [facility] AT [place] AND THEY WERE SHARING A ROOM PRIOR TO THIS HOSPITAL STAY. PT ASKED CM TO CALL HER SISTER, ROSIO ADAMES, AND GRANDDAUGHTER, IJEOMA BENITEZ. CHOICE SIGNED FOR NO PREFERENCE ON FCI PROVIDER, IMPORTANT MESSAGE FROM MEDICARE PROVIDED AND EXPLAINED. CM RECEIVED CALL FROM PT'S SISTER, ROSIO ADAMES, , PROVIDED UPDATE. CM CALLED PT'S GRANDDAUGHTER, IJEOMA BENITEZ, , WHO INFORMED CM THAT SHE WOULD LIKE REFERRAL SENT TO [facility] IN [place] WAS SUPPOSED TO BE MOVING PT'S SISTER TO LIVE WITH PT AT [facility]. CM CALLED [facility], , SPOKE TO SHANNON WHO INFORMED CM THAT THE SENIOR VICE PRESIDENT AND CHIEF INFORMATION OFFICER WOULD REVIEW REFERRAL FOR ADMISSION AND ASKED FOR REFERRAL TO BE FAXED. CM FAXED REFERRAL FOR FCI CARE PLACEMENT TO [place] OF [facility], . CM WAITING ADMISSION DETERMINATION FROM [facility]. IF ACCEPTED, NOTIFRemi CARVAJAL OF [facility] FOR OUTPATIENT DIALYSIS CLINIC ARRANGEMENT. Pravin Doyle. CASE MANAGEMENT DCP- Discharge Planning Updated by [id number]: Pravin Doyle on 02/21/19 3:[address] Patient Name: MAGDALENA ALVAREZ Encounter No: [id number] : 1950 Primary Insurance: MEDICARE IP PART B ONLY Anticipated DC Date: Planned Disposition: Nursing Facility [facility] Cert External Planned Provider: TO BE DETERMINED DCP follow-up note: CM CALLED [facility], ASKED IF THEY CAN ACCOMODATE DIALYSIS TRANSPORTATION. [facility] WILL CHECK AND CALL CM BACK. CM CALLED BACK AFTER LUNCH, SPOKE TO [facility]IN WHO INFORMED CM THAT THEY CANNOT TRANSPORT TO DIALYSIS AND PT WILL NEED OTHER PLACEMENT. GIN REPORTS FAMILY WAS THINKING [facility] IN [place]. RN HOUSE NOTIFIED BARTOLOME OF [facility]. CM ATTEMPTED TO SEE PT TO DISCUSS MOVING TO ANOTHER NURSING FACILITY, PT WAS NOT IN ROOM. PATIENT WILL NEED A NEW FCI CARE PLACEMENT. CM TO DISCUSS WITH PT FOR CHOICE AND BEGIN NEW PLACEMENT EFFORTS. Pravin Doyle, CASE MANAGEMENT DCP- Discharge Planning Updated by [id number]: Bere Cruz on 02/19/19 2:[address] CM contacted [facility] in [facility] [phone] . CM informed staff that patient has been started on dialysis since she has been admitted. CM asked if they currently have any dialysis patients or if they accept dialysis patients. Staff replied that they currently don't have any dialysis patients. She requested for CM to fax records and she will have sap administrator look them over and call back tomorrow after review. CM will continue to follow and assist as needed with discharge planning / needs. DCP- Discharge Planning Updated by [email or web address]: Bere Cruz on 02/18/19 4:[address] CM notified Bartolome Carvajal via email of new patient starting hemodialysis and that patient is resident at [facility] in [facility]. CM will continue to follow and assist as needed with discharge planning / needs. DCP- Discharge Planning Updated by [id number]: Bere Cruz on 02/14/19 6:[address] Patient Name: MAGDALENA ALVAREZ Admission Status: ER Accout number: [id number] Admission Date: 02-14-2019 : 1950 Admission Diagnosis: Attending: BENEDICTO CALLAWAY Current LOS: 1 Anticipated DC Date: Planned Disposition: Nursing Facility [facility] Primary Insurance: MEDICARE IP PART B ONLY Discharge Planning Comments: CM met with patient at bedside. Patient states [facility] in [facility]. ([place]) and plans to return there upon discharge. NICA completed for [place] Patient denies any discharge needs at this time. CM will continue to follow and assist as needed with discharge planning / needs. Sectional Belt Mold Assembler: Bere GARCÍA - Discharge Planning Initial Assessment Updated by [email or web address]: Bere Cruz on 02/14/19 7:24 pm * Preadmission Environment Intermediate Intermediate * Facility Name [facility]. Mailing Address: [address] [place] [address]. Phone Number?: ?[phone] * ADLs Partial Dependent * List name and contact numbers for known caregivers / representatives who currently or will assist patient after discharge: IJEOMA MORELOS- [phone] * Verbal permission to speak to the caregivers and representatives has been obtained from the patient. N/A * Additional services required to return to the preadmission environment? No * Can the patient safely return to the preadmission environment? Yes * Has this patient been hospitalized within the prior 30 days at any hospital? No Coverage Notice Reviewer: LISA Doyle Notice Issued Date-Time: 02/22/2019 9:50 Notice Type: IM Discharge Notice Notice Delivered To: Patient Relationship to Patient: Knockout Machine Operator Name: Delivery Method: HAND - Hand Delivered Isha Days: Prior Verbal Notification: Recipient Understood Notice: Yes Recipient Signature: Yes Med Rec Note Co-signed by Attending: Coverage Notice Comment: Reviewer: LISA Doyle Notice Issued Date-Time: 02/22/2019 9:50 Notice Type: Patient Choice Letter Notice Delivered To: Patient Relationship to Patient: Knockout Machine Operator Name: Delivery Method: HAND - Hand Delivered Isha Days: Prior Verbal Notification: Recipient Understood Notice: Yes Recipient Signature: Yes Med Rec Note Co-signed by Attending: Coverage Notice Comment: NO FCI PREFERENCE Reviewer: LISA Doyle Notice Issued Date-Time: 02/25/2019 14:50 Notice Type: IM Discharge Notice Notice Delivered To: Patient Relationship to Patient: Knockout Machine Operator Name: Delivery Method: HAND - Hand Delivered Isha Days: Prior Verbal Notification: Recipient Understood Notice: Yes Recipient Signature: Yes Med Rec Note Co-signed by Attending: Coverage Notice Comment: Last DP export: 02/26/19 7:45 am Patient Name: MAGDALENA ALVAREZ Page [id number] at 1709 All edits/amendments must be made on the electronic document DICTATION DATE: 02/27/191707 WEB DEVELOPMENT INTERN: RADHA 02/27/191707 RPT#: [id number] DC DATE: STATUS: ADM IN [facility] [address] [place] [address] END OF REPORT
--- NOTE | 2019-02-27 17:12 | NUR ---
PT EATING DINNER AT THIS TIME. POST OP VITALS REMAINED STABLE. L.CHEST HEMESPLIT NOT BLEEDING AND NO ISSUES NOTED. PT IS ACCEPTED AND CAN BE DISCHARGED ON MONDAY AND HAVE DIALYSIS AT HER NEW CENTER. DISCUSSED WITH AND RENAL TEAM. PT DENIES ANY CURRENT PAIN OR NEEDS AT THIS TIME. CL IN REACH. WILL CTM.
[2019-02-27 17:36] VITALS: BP 131/53
--- NOTE | 2019-02-27 19:30 | NUR ---
EVENING ROUNDS MADE. PT LAYING IN BED RESTING. DENIES PAIN AT THIS TIME. L CHEST HEMESPLIT INTACT, DRSG C/D/I. NO DRAINAGE NOTED. IV TO R HAND, PATENT, DRSG C/D/I. NO FURTHER CONCERNS AT THIS TIME. BED LOWERED AND LOCKED. CL IN REACH. WILL CTM.
[2019-02-27 20:00] VITALS: BP 129/54
--- NOTE | 2019-02-27 21:26 | NUR ---
VITALS STABLE. PT TOOK MEDS WITHOUT DIFFICULTY. DENIES PAIN AT THIS TIME. PT RESTING COMFORTABLY. FALL PRECAUTIONS IN PLACE. BED LOWERED AND LOCKED. CL IN REACH. WILL CTM.
[2019-02-28] VITALS: BP 132/58
--- NOTE | 2019-02-28 00:42 | NUR ---
I have reviewed this patient and I concur with the Shift Assessment completed by the Licensed Practical Nurse today this shift.
[2019-02-28 04:00] VITALS: BP 130/56
[2019-02-28 07:13] LABS: ALBUMIN 2.2 g/dL (3.4-5.0); ANION GAP 19.7 mmol/L (8-16); BILIRUBIN - TOTAL 0.64 mg/dL (0.2-1.3); CALCIUM 8.6 mg/dL (8.5-10.1); CARBON DIOXIDE 21.1 mmol/L (21.0-32.0); CREATININE - SERUM 9.1 mg/dL (0.6-1.3); POTASSIUM - SERUM 3.8 mmol/L (3.5-5.1); PROTEIN - SERUM 6.1 g/dL (6.4-8.2)
--- NOTE | 2019-02-28 07:40 | NUR ---
PT RESTING IN BED, SHIFT ASSESSMENT PERFORMED. DENIES ANY NEEDS AT THIS TIME, WILL CONT TO FOLLOW POC
[2019-02-28 09:20] VITALS: BP 120/52
[2019-02-28 10:40] LABS: BASOPHILS 0.4 % (0-2); EOSINOPHILS 5.7 % (0-7); HEMOGLOBIN 9.2 g/dL (12-16); IMMATURE GRANULOCYTES 0.4 % (0-5); LYMPHOCYTES 15.9 % (15-50); MCH 27.6 pg (26.0-34.0); MCHC 31.7 g/dL (31.0-37.0); MCV 87.1 fL (80.0-100.0); MEAN PLATELET VOLUME 11.7 fL (7.4-10.4); MONOCYTES 8.8 % (2-11); NEUTROPHILS 68.8 % (40-80); PLATELET COUNT 140 10x3/uL (130-400); RBC 3.33 10x6/uL (4.00-5.40); RDW 15.2 % (11.5-14.5); WBC 6.8 10x3/uL (4.8-10.8)
--- NOTE | 2019-02-28 12:20 | NUR ---
PT SITTING IN CHAIR EATING LUNCH, DENIES ANY NEEDS AT THIS TIME, WILL CONT TO FOLLOW POC
[2019-02-28 13:19] VITALS: BP 112/51
[2019-02-28 17:43] VITALS: BP 136/54
--- NOTE | 2019-02-28 19:25 | NUR ---
EVENING ROUNDS MADE. PT SITTING UP IN BED RESTING. PT DENIES PAIN AT THIS TIME. BREATHING EVEN AND UNLABORED. DENIES FURTHER CONCERNS AT THIS TIME. FALL PRECAUTIONS AT THIS TIME. BED LOWERED AND LOCKED. CL IN REACH. WILL CTM.
[2019-02-28 20:00] VITALS: BP 142/52
--- NOTE | 2019-02-28 20:51 | NUR ---
VITALS STABLE. PT TOOK MEDS WITHOUT DIFFICULTY. DENIES FURTHER NEEDS AT THIS TIME. CL IN REACH. WILL CTM.
[2019-03-01] VITALS: BP 132/50
--- NOTE | 2019-03-01 01:46 | NUR ---
I have reviewed this patient and I concur with the Shift Assessment completed by the Licensed Practical Nurse today this shift.
[2019-03-01 04:00] VITALS: BP 138/60
[2019-03-01 06:07] LABS: ANION GAP 20.1 mmol/L (8-16); CALCIUM 8.4 mg/dL (8.5-10.1); CARBON DIOXIDE 21.8 mmol/L (21.0-32.0); CREATININE - SERUM 10.5 mg/dL (0.6-1.3); POTASSIUM - SERUM 3.9 mmol/L (3.5-5.1)
[2019-03-01 07:52] VITALS: BP 148/56
[2019-03-01] MEDS ORDERED: COREG12.5 MG PO (09:19)
[2019-03-01] MEDS ORDERED: NORVASC5 MG PO (09:19)
--- NOTE | 2019-03-01 09:24 | MORECARE ---
CASE MANAGEMENT DISCHARGE SUMMARY PATIENT: MAGDALENA ALVAREZ UNIT: [id number] ADM DATE: 02/14/19 AGE: 68 : [birth year] SEX: F ROOM/BED: D.6806 AUTHOR: BEATRICE,DOC PHYSICIAN: REFERRING PHYSICIAN: BENEDICTO CALLAWAY MD DATE OF SERVICE: 03/01/19 Discharge Plan Patient Name: MAGDALENA ALVAREZ Facility[facility]:[place] : 1950 Planned Disposition: Nursing Facility [facility] Cert Anticipated Discharge Date: 03/01/19 Discharge Date: Expected LOS: 15 Initial Reviewer: [id number] Initial Review Date: 02/14/2019 Generated: 03/01/19 10:24 am Comments DCP- Discharge Planning Updated by [id number]: Pravin Doyle on 02/27/19 4:[address] Patient Name: MAGDALENA ALVAREZ Encounter No: [id number] : 1950 Primary Insurance: MEDICARE IP PART B ONLY Anticipated DC Date: 02-26-2019 Planned Disposition: Nursing Facility [facility] Cert External Planned Provider:[facility], NURSING HOME CARE MEDICAID BED DCP follow-up note: CM RECEIVED CALL FROM BARTOLOME OF [facility], PT HAS BEEN ACCEPTED AT [facility] OUT[facility]IENT DIALYSIS FOR SCHEDULE OF MWF, 1:45PM ARRIVAL TIME FOR 2PM CHAIR; FIRST APPOINTMENT 03-01-19 AT 1:15PM. CM CALLED W[facility] OF [facility], , NOTIFIED OF ABOVE, [facility] MAY NOT HAVE TRANSPORT TOMORROW DUE TO HOLIDAY AND WILL CAN CUTTER PT AT 0900 ON 03-01-19, AND ACCEPT TO [facility] / TRANSPORT TO FIRST OUTPATIENT DIALYSIS. CM NOTIFIED [facility] OF [facility], FAXED UPDATE AND OUTPATIENT DIALYSIS WELCOME LETTER TO [facility] VIA [facility]ERA AT [phone]. COPY OF WELCOME LETTER PLACED IN PAPER CHART. BEDSIDE NURSE NOTIFIED. MIO PLANS TO CAN CUTTER PT ON 03-01-19 AT 0900 AM. WHEN DISCHARGE IS RECEIVED, CALL NURSE REPORT TO [facility] AT [phone]; FAX DISCHARGE INFORMATION TO [facility] AT [phone]. [facility] TO ARRANGE VAN CAN CUTTER FOR 03-01-19 AT 0900AM. MARIN Avina MANGEMENT DCP- Discharge Planning Updated by [id number]: Pravin Doyle on 02/25/19 2:[address] Patient Name: MAGDALENA ALVAREZ Encounter No: [id number] : 1950 Primary Insurance: MEDICARE IP PART B ONLY Anticipated DC Date: Planned Disposition: Nursing Facility [facility] Cert External Planned Provider: [facility], LONG TERM CARE MEDICAID BED DCP follow-up note: CM RECEIVED CALL FROM [facility], THEY WILL ACCEPT TOMORROW WHEN OUTPATIENT DIALYSIS CLINIC IS ARRANGED. CM NOTIFIED BARTOLOME CARVAJAL OF [facility] WHO INFORMED CM THAT PT HAS NOT YET BEEN ACCEPTED AT DIALYSIS CLINIC. THE CLINIC DOES HAVE THE REFERRAL. WHEN DIALYSIS UNIT IS ARRANGED AND DISCHARGE IS RECEIVED, CALL NURSE REPORT TO [facility] AT [phone]; FAX DISCHARGE INFORMATION TO [facility] AT [phone]. [facility] TO ARRANGE VAN CAN CUTTER. MARIN Avina MANGEMENT Appended by Pravin Doyle on 02/25/2019 15:09 CDT: Patient notified and in agreement with discharge plan to [facility] in [place]. Important Message from Medicare provided and explained. marin Ivan DCP- Discharge Planning Updated by [id number]: Pravin Doyle on 02/25/19 12:[address] Patient Name: MAGDALENA ALVAREZ Encounter No: [id number] : 1950 Primary Insurance: MEDICARE IP PART B ONLY Anticipated DC Date: Planned Disposition: Nursing Facility [facility] Cert External Planned Provider: [facility], LONG TERM CARE MEDICAID BED DCP follow-up note: CM FAXED REFERRAL UPDATE FOR NURSING HOME CARE PLACEMENT TO [facility], . CM WAITING ADMISSION DETERMINATION FROM [facility]. IF ACCEPTED, NOTIFY BARTOLOME CARVAJAL OF [facility] FOR OUTPATIENT DIALYSIS CLINIC ARRANGEMENT. Pravin Doyle. CASE MANAGEMENT Appended by Pravin Doyle on 02/25/2019 13:28 CDT: [facility] TO EVALUATE PT, UPDATE PROVIDED. [facility] WILL MEET WITH PT AND EVALUATE FOR NURSING HOME CARE ADMISSION TO [facility]. CM WAITING ADMISSION DETERMINATION FROM [facility]. IF ACCEPTED, NOTIFY BARTOLOME CARVAJAL OF [facility] FOR OUTPATIENT DIALYSIS CLINIC ARRANGEMENT. Pravin Doyle. CASE MANAGEMENT DCP- Discharge Planning Updated by [id number]: Pravin Doyle on 02/22/19 12:[address] Patient Name: MAGDALENA ALVAREZ Encounter No: [id number] : 1950 Primary Insurance: MEDICARE IP PART B ONLY Anticipated DC Date: Planned Disposition: Nursing Facility [facility] Cert External Planned Provider: [facility], LONG TERM CARE MEDICAID BED DCP follow-up note: CM SPOKE TO PT IN ROOM REGARDING DISCHARGE PLANNING AND NEEDS, INFORMED CM THAT [place] WILL NOT ACCEPT BACK THEY CANNOT PROVIDE OUTPATIENT DIALYSIS TRANSPORTATION. CM DISCUSSED OPTIONS. PT ASKED TO BE KEPT CLOSE TO [facility] POSSIBLE HER SISTER IS IN [facility] AT [place] AND THEY WERE SHARING A ROOM PRIOR TO THIS HOSPITAL STAY. PT ASKED CM TO CALL HER SISTER, ROSIO ADAMES, AND GRANDDAUGHTER, IJEOMA BENITEZ. CHOICE SIGNED FOR NO PREFERENCE ON LONG-TERM PROVIDER, IMPORTANT MESSAGE FROM MEDICARE PROVIDED AND EXPLAINED. CM RECEIVED CALL FROM PT'S SISTER, ROSIO ADAMES, , PROVIDED UPDATE. CM CALLED PT'S GRANDDAUGHTER, IJEOMA BENITEZ, , WHO INFORMED CM THAT SHE WOULD LIKE REFERRAL SENT TO [facility] IN [place] WAS SUPPOSED TO BE MOVING PT'S SISTER TO LIVE WITH PT AT [facility]. CM CALLED [facility], , SPOKE TO SHANNON WHO INFORMED CM THAT THE INSTRUMENT CALIBRATOR WOULD REVIEW REFERRAL FOR ADMISSION AND ASKED FOR REFERRAL TO BE FAXED. CM FAXED REFERRAL FOR NURSING HOME CARE PLACEMENT TO [place] OF [facility], . CM WAITING ADMISSION DETERMINATION FROM [facility]. IF ACCEPTED, NOTIFRemi CARVAJAL OF [facility] FOR OUTPATIENT DIALYSIS CLINIC ARRANGEMENT. Pravin Doyle. CASE MANAGEMENT DCP- Discharge Planning Updated by [id number]: Pravin Doyle on 02/21/19 3:[address] Patient Name: MAGDALENA ALVAREZ Encounter No: [id number] : 1950 Primary Insurance: MEDICARE IP PART B ONLY Anticipated DC Date: Planned Disposition: Nursing Facility [facility] Cert External Planned Provider: TO BE DETERMINED DCP follow-up note: CM CALLED [facility], ASKED IF THEY CAN ACCOMODATE DIALYSIS TRANSPORTATION. [facility] WILL CHECK AND CALL CM BACK. CM CALLED BACK AFTER LUNCH, SPOKE TO [facility] WHO INFORMED CM THAT THEY CANNOT TRANSPORT TO DIALYSIS AND PT WILL NEED OTHER PLACEMENT. [facility] REPORTS FAMILY WAS THINKING [facility] IN [place]. RN HOUSE NOTIFIED B[facility]OME [facility]. CM ATTEMPTED TO SEE PT TO DISCUSS MOVING TO ANOTHER NURSING FACILITY, PT WAS NOT IN ROOM. PATIENT WILL NEED A NEW NURSING HOME CARE PLACEMENT. CM TO DISCUSS WITH PT FOR CHOICE AND BEGIN NEW PLACEMENT EFFORTS. Pravin Doyle, CASE MANAGEMENT DCP- Discharge Planning Updated by [id number]: Bere Cruz on 02/19/19 2:[address] CM contacted [facility] in [facility] [phone] . CM informed staff that patient has been started on dialysis since she has been admitted. CM asked if they currently have any dialysis patients or if they accept dialysis patients. Staff replied that they currently don't have any dialysis patients. She requested for CM to fax records and she will have computer systems security administrator look them over and call back tomorrow after review. CM will continue to follow and assist as needed with discharge planning / needs. DCP- Discharge Planning Updated by [id number]: Bere Cruz on 02/18/19 4:[address] CM notified Bartolome Carvajal via email of new patient starting hemodialysis and that patient is resident at [facility] in [facility]. CM will continue to follow and assist as needed with discharge planning / needs. DCP- Discharge Planning Updated by [id number]: Bere Cruz on 02/14/19 6:[address] Patient Name: MAGDALENA ALVAREZ Admission Status: ER Accout number: [id number] Admission Date: 02-14-2019 : 1950 Admission Diagnosis: Attending: BENEDICTO CALLAWAY Current LOS: 1 Anticipated DC Date: Planned Disposition: Nursing Facility [facility] Primary Insurance: MEDICARE IP PART B ONLY Discharge Planning Comments: CM met with patient at bedside. Patient states she lives at snf in [facility]. ([place]) and plans to return there upon discharge. NICA completed for [place] Patient denies any discharge needs at this time. CM will continue to follow and assist as needed with discharge planning / needs. Hemmer Lockstitch: Bere GARCÍA - Discharge Planning Initial Assessment Updated by [id number]: Bere Cruz on 02/14/19 7:24 pm * Preadmission Environment [facility] * Facility Name [facility]. Mailing Address: [address] [place] [address]. Phone Number?: ?[phone] * ADLs Partial Dependent * List name and contact numbers for known caregivers / representatives who currently or will assist patient after discharge: IJEOMA MORELOS- [phone] * Verbal permission to speak to the caregivers and representatives has been obtained from the patient. N/A * Additional services required to return to the preadmission environment? No * Can the patient safely return to the preadmission environment? Yes * Has this patient been hospitalized within the prior 30 days at any hospital? No Coverage Notice Reviewer: LISA Doyle Notice Issued Date-Time: 02/22/2019 9:50 Notice Type: IM Discharge Notice Notice Delivered To: Patient Relationship to Patient: Real Estate Intern Name: Delivery Method: HAND - Hand Delivered Isha Days: Prior Verbal Notification: Recipient Understood Notice: Yes Recipient Signature: Yes Med Rec Note Co-signed by Attending: Coverage Notice Comment: Reviewer: LISA Doyle Notice Issued Date-Time: 02/22/2019 9:50 Notice Type: Patient Choice Letter Notice Delivered To: Patient Relationship to Patient: Real Estate Intern Name: Delivery Method: HAND - Hand Delivered Isha Days: Prior Verbal Notification: Recipient Understood Notice: Yes Recipient Signature: Yes Med Rec Note Co-signed by Attending: Coverage Notice Comment: NO LONG-TERM PREFERENCE Reviewer: LISA Doyle Notice Issued Date-Time: 02/25/2019 14:50 Notice Type: IM Discharge Notice Notice Delivered To: Patient Relationship to Patient: Real Estate Intern Name: Delivery Method: HAND - Hand Delivered Isha Days: Prior Verbal Notification: Recipient Understood Notice: Yes Recipient Signature: Yes Med Rec Note Co-signed by Attending: Coverage Notice Comment: Last DP export: 02/27/19 4:09 pm Patient Name: MAGDALENA ALVAREZ Page [id number] at 0924 All edits/amendments must be made on the electronic document DICTATION DATE: 03/01/19922 LICENSED NURSE PRACTITIONER: RADHA 03/01/19922 RPT#: [id number] DC DATE: STATUS: ADM IN [facility] [address] [place] [address] END OF REPORT
--- NOTE | 2019-03-01 10:55 | MORECARE ---
CASE MANAGEMENT DISCHARGE SUMMARY PATIENT: MAGDALENA ALVAREZ UNIT: [id number] ADM DATE: 02/14/19 AGE: 68 : [birth year] SEX: F ROOM/BED: D.4001 AUTHOR: BEATRICE,DOC PHYSICIAN: REFERRING PHYSICIAN: BENEDICTO CALLAWAY MD DATE OF SERVICE: 03/01/19 Discharge Plan Patient Name: MAGDALENA ALVAREZ Facility: [facility]:[place] : 1950 Planned Disposition: Nursing Facility [facility] Cert Anticipated Discharge Date: 03/01/19 Discharge Date: Expected LOS: 15 Initial Reviewer: [id number] Initial Review Date: 02/14/2019 Generated: 03/01/19 11:55 am Comments DCP- Discharge Planning Updated by [id number]: Pravin Doyle on 02/27/19 4:[address] Patient Name: MAGDALENA ALVAREZ Encounter No: [id number] : 1950 Primary Insurance: MEDICARE IP PART B ONLY Anticipated DC Date: 02-26-2019 Planned Disposition: Nursing Facility [facility] Cert External Planned Provider:[facility], MCFP CARE MEDICAID BED DCP follow-up note: CM RECEIVED CALL FROM BARTOLOME OF [facility], PT HAS BEEN ACCEPTED AT [facility] OUTPATIENT DIALYSIS FOR SCHEDULE OF MWF, 1:45PM ARRIVAL TIME FOR 2PM CHAIR; FIRST APPOINTMENT 03-01-19 AT 1:15PM. CM CALLED [facility] OF [facility], , NOTIFIED OF ABOVE, [facility] MAY NOT HAVE TRANSPORT TOMORROW DUE TO HOLIDAY AND WILL PATIENT DAY COORDINATOR PT AT 0900 ON 03-01-19, AND ACCEPT TO [facility] / TRANSPORT TO FIRST OUTPATIENT DIALYSIS. CM NOTIFIED [facility] OF [facility], FAXED UPDATE AND OUTPATIENT DIALYSIS WELCOME LETTER TO [facility]IA [facility] AT [phone]. COPY OF WELCOME LETTER PLACED IN PAPER CHART. BEDSIDE NURSE NOTIFIED. MIO PLANS TO PATIENT DAY COORDINATOR PT ON 03-01-19 AT 0900 AM. WHEN DISCHARGE IS RECEIVED, CALL NURSE REPORT TO [facility] AT [phone]; FAX DISCHARGE INFORMATION TO [facility] AT [phone]. [facility] TO ARRANGE VAN PATIENT DAY COORDINATOR FOR 03-01-19 AT 0900AM. MARIN Avina MANGEMENT DCP- Discharge Planning Updated by [id number]: Pravin Doyle on 02/25/19 2:[address] Patient Name: MAGDALENA ALVAREZ Encounter No: [id number] : 1950 Primary Insurance: MEDICARE IP PART B ONLY Anticipated DC Date: Planned Disposition: Nursing Facility [facility] Cert External Planned Provider: [facility], LONG TERM CARE MEDICAID BED DCP follow-up note: CM RECEIVED CALL FROM [facility], THEY WILL ACCEPT TOMORROW WHEN OUTPATIENT DIALYSIS CLINIC IS ARRANGED. CM NOTIFIED BARTOLOME CARVAJAL OF [facility] WHO INFORMED CM THAT PT HAS NOT YET BEEN ACCEPTED AT DIALYSIS CLINIC. THE CLINIC DOES HAVE THE REFERRAL. WHEN DIALYSIS UNIT IS ARRANGED AND DISCHARGE IS RECEIVED, CALL NURSE REPORT TO [facility] AT [phone]; FAX DISCHARGE INFORMATION TO [facility] AT [phone]. [facility] TO ARRANGE VAN PATIENT DAY COORDINATOR. MARIN Avina MANGEMENT Appended by Pravin Doyle on 02/25/2019 15:09 CDT: Patient notified and in agreement with discharge plan to [facility] in [place]. Important Message from Medicare provided and explained. marin Ivan DCP- Discharge Planning Updated by [id number]: Pravin Doyle on 02/25/19 12:[address] Patient Name: MAGDALENA ALVAREZ Encounter No: [id number] : 1950 Primary Insurance: MEDICARE IP PART B ONLY Anticipated DC Date: Planned Disposition: Nursing Facility [facility] Cert External Planned Provider: [facility], LONG TERM CARE MEDICAID BED DCP follow-up note: CM FAXED REFERRAL UPDATE FOR [facility] CARE PLACEMENT TO [facility], . CM WAITING ADMISSION DETERMINATION FROM [facility]. IF ACCEPTED, NOTIFY BARTOLOME CARVAJAL OF [facility] FOR OUTPATIENT DIALYSIS CLINIC ARRANGEMENT. Pravin Doyle. CASE MANAGEMENT Appended by Pravin Doyle on 02/25/2019 13:28 CDT: [facility] TO EVALUATE PT, UPDATE PROVIDED. [facility] WILL MEET WITH PT AND EVALUATE FOR [facility] CARE ADMISSION TO [facility]. CM WAITING ADMISSION DETERMINATION FROM [facility]. IF ACCEPTED, NOTIFY BARTOLOME CARVAJAL OF [facility] FOR OUTPATIENT DIALYSIS CLINIC ARRANGEMENT. Pravin Doyle. CASE MANAGEMENT DCP- Discharge Planning Updated by [id number]: Pravin Doyle on 02/22/19 12:[address] Patient Name: MAGDALENA ALVAREZ Encounter No: [id number] : 1950 Primary Insurance: MEDICARE IP PART B ONLY Anticipated DC Date: Planned Disposition: Nursing Facility [facility] Cert External Planned Provider: [facility], LONG TERM CARE MEDICAID BED DCP follow-up note: CM SPOKE TO PT IN ROOM REGARDING DISCHARGE PLANNING AND NEEDS, INFORMED CM THAT [facility] WILL NOT ACCEPT BACK THEY CANNOT PROVIDE OUTPATIENT DIALYSIS TRANSPORTATION. CM DISCUSSED OPTIONS. PT ASKED TO BE KEPT CLOSE TO [facility] POSSIBLE HER SISTER IS IN [facility] AT [facility] AND THEY WERE SHARING A ROOM PRIOR TO THIS HOSPITAL STAY. PT ASKED CM TO CALL HER SISTER, ROSIO ADAMES, AND GRANDDAUGHTER, IJEMOA BENITEZ. CHOICE SIGNED FOR NO PREFERENCE ON HALFWAY PROVIDER, IMPORTANT MESSAGE FROM MEDICARE PROVIDED AND EXPLAINED. CM RECEIVED CALL FROM PT'S SISTER, ROSIO ADAMES, , PROVIDED UPDATE. CM CALLED PT'S GRANDDAUGHTER, IJEOMA BENITEZ, , WHO INFORMED CM THAT SHE WOULD LIKE REFERRAL SENT TO [facility] IN [place] [facility] WAS SUPPOSED TO BE MOVING PT'S SISTER TO LIVE WITH PT AT [facility]. CM CALLED [facility], , SPOKE TO SHANNON WHO INFORMED CM THAT THE COUNTER ROLLER WOULD REVIEW REFERRAL FOR ADMISSION AND ASKED FOR REFERRAL TO BE FAXED. CM FAXED REFERRAL FOR [facility] CARE PLACEMENT TO [place] [facility], . CM WAITING ADMISSION DETERMINATION FROM [facility]. IF ACCEPTED, NOTIFRemi CARVAJAL OF [facility] FOR OUTPATIENT DIALYSIS CLINIC ARRANGEMENT. Pravin Doyle. CASE MANAGEMENT DCP- Discharge Planning Updated by [id number]: Pravin Doyle on 02/21/19 3:[address] Patient Name: MAGDALENA ALVAREZ Encounter No: [id number] : 1950 Primary Insurance: MEDICARE IP PART B ONLY Anticipated DC Date: Planned Disposition: Nursing Facility [facility] Cert External Planned Provider: TO BE DETERMINED DCP follow-up note: CM CALLED [facility], ASKED IF THEY CAN ACCOMODATE DIALYSIS TRANSPORTATION. [facility] WILL CHECK AND CALL CM BACK. CM CALLED BACK AFTER LUNCH, SPOKE TO [facility] WHO INFORMED CM THAT THEY CANNOT TRANSPORT TO DIALYSIS AND PT WILL NEED OTHER PLACEMENT. GIN REPORTS FAMILY WAS THINKING [facility] IN [place]. RN HOUSE NOTIFIED B[facility]OLOME [facility]. CM ATTEMPTED TO SEE PT TO DISCUSS MOVING TO ANOTHER NURSING FACILITY, PT WAS NOT IN ROOM. PATIENT WILL NEED A NEW MCFP CARE PLACEMENT. CM TO DISCUSS WITH PT FOR CHOICE AND BEGIN NEW PLACEMENT EFFORTS. Pravin Doyle, CASE MANAGEMENT DCP- Discharge Planning Updated by [id number]: Bere Cruz on 02/19/19 2:[address] CM contacted [facility] in [facility] [place] [facility] [phone] . CM informed staff that patient has been started on dialysis since she has been admitted. CM asked if they currently have any dialysis patients or if they accept dialysis patients. Staff replied that they currently don't have any dialysis patients. She requested for CM to fax records and she will have jr. systems administrator look them over and call back tomorrow after review. CM will continue to follow and assist as needed with discharge planning / needs. DCP- Discharge Planning Updated by [id number]: Bere Cruz on 02/18/19 4:[address] CM notified Bartolome Carvajal via email of new patient starting hemodialysis and that patient is resident at [facility] in [place]. CM will continue to follow and assist as needed with discharge planning / needs. DCP- Discharge Planning Updated by [id number]: Bere Cruz on 02/14/19 6:[address] Patient Name: MAGDALENA ALVAREZ Admission Status: ER Accout number: [id number] Admission Date: 02-14-2019 : 1950 Admission Diagnosis: Attending: BENEDICTO CALLAWAY Current LOS: 1 Anticipated DC Date: Planned Disposition: Nursing Facility [facility] Primary Insurance: MEDICARE IP PART B ONLY Discharge Planning Comments: CM met with patient at bedside. Patient states she lives at skilled nursing in [place] [facility] [place]. ([place]) and plans to return there upon discharge. NICA completed for [place] Patient denies any discharge needs at this time. CM will continue to follow and assist as needed with discharge planning / needs. [facility] Rehabilitation Counselor: Bere GARCÍA - Discharge Planning Initial Assessment Updated by [id number]: Bere Cruz on 02/14/19 7:24 pm * Preadmission Environment [facility] * [facility]. Mailing Address: [address] [place] [address]. Phone Number?: ?[phone] * ADLs Partial Dependent * List name and contact numbers for known caregivers / representatives who currently or will assist patient after discharge: IJEOMA MORELOS- [phone] * Verbal permission to speak to the caregivers and representatives has been obtained from the patient. N/A * Additional services required to return to the preadmission environment? No * Can the patient safely return to the preadmission environment? Yes * Has this patient been hospitalized within the prior 30 days at any hospital? No Coverage Notice Reviewer: LISA Doyle Notice Issued Date-Time: 02/22/2019 9:50 Notice Type: IM Discharge Notice Notice Delivered To: Patient Relationship to Patient: Boat Operator Name: Delivery Method: HAND - Hand Delivered Isha Days: Prior Verbal Notification: Recipient Understood Notice: Yes Recipient Signature: Yes Med Rec Note Co-signed by Attending: Coverage Notice Comment: Reviewer: LISA Doyle Notice Issued Date-Time: 02/22/2019 9:50 Notice Type: Patient Choice Letter Notice Delivered To: Patient Relationship to Patient: Boat Operator Name: Delivery Method: HAND - Hand Delivered Isha Days: Prior Verbal Notification: Recipient Understood Notice: Yes Recipient Signature: Yes Med Rec Note Co-signed by Attending: Coverage Notice Comment: NO HALFWAY PREFERENCE Reviewer: LISA Doyle Notice Issued Date-Time: 02/25/2019 14:50 Notice Type: IM Discharge Notice Notice Delivered To: Patient Relationship to Patient: Boat Operator Name: Delivery Method: HAND - Hand Delivered Isha Days: Prior Verbal Notification: Recipient Understood Notice: Yes Recipient Signature: Yes Med Rec Note Co-signed by Attending: Coverage Notice Comment: Last DP export: 03/01/19 8:24 am Patient Name: MAGDALENA ALVAREZ Page [id number] at 1055 All edits/amendments must be made on the electronic document DICTATION DATE: 03/01/191054 CHILD DAY CARE PROVIDER: RADHA 03/01/191054 RPT#: [id number] DC DATE: STATUS: ADM IN [facility] [address] [place] [address] END OF REPORT
--- NOTE | 2019-03-01 11:04 | MORECARE ---
CASE MANAGEMENT DISCHARGE SUMMARY PATIENT: MAGDALENA ALVAREZ UNIT: [id number] ADM DATE: 02/14/19 AGE: 68 : 48 SEX: F ROOM/BED: D.7353 AUTHOR: BEATRICE,DOC PHYSICIAN: REFERRING PHYSICIAN: BENEDICTO CALLAWAY MD DATE OF SERVICE: 03/01/19 Discharge Plan Patient Name: MAGDALENA ALVAREZ Facility: [facility] : 1950 Planned Disposition: Nursing Facility [facility] Cert Anticipated Discharge Date: 03/01/19 Discharge Date: Expected LOS: 15 Initial Reviewer: [id number] Initial Review Date: 02/14/2019 Generated: 03/01/19 12:04 pm Comments DCP- Discharge Planning Updated by [id number]: Pravin Doyle on 03/01/19 9:[address] Patient Name: MAGDALENA ALVAREZ Encounter No: [id number] : 1950 Primary Insurance: MEDICARE IP PART B ONLY Anticipated DC Date: 03-01-2019 Planned Disposition: Nursing Facility [facility] Cert External Planned Provider: [facility], LONG TERM CARE MEDICAID BED DCP follow-up note: CM OBSERVED THAT PT HAS NOT BEEN DISCHARGED AND [facility] IS PICKING UP PT THIS MORNING. BEDSIDE NURSE NOTIFIED. CM PAGED AND SPOKE TO RENAL SURVEILLANCE DUAL RATE OFFICERLyndon KAY WHO INFORMED CM THAT PT IS READY TO DISCHARGE FROM [facility]. CM NOTIFIED VIJAYA CHRISTINE. DISCHARGE ORDER RECEIVED. CM FAXED DISCHARGE INFORMATION TO [facility] AT [phone]. PT NOTIFIED WHO DENIES DISCHARGE NEEDS AND IS IN AGREEMENT WITH PLAN TO DISCHARGE TODAY TO [facility]. PT REPORTS HER FAMILY IS AWARE SHE HAS TALKED TO THEM TODAY. CALL NURSE REPORT TO [facility] AT [phone]; . [facility] TO ARRANGE VAN SUPERVISOR ORE DRESSING FOR 03-01-19 AT OR AFTER 0900AM. MARIN Avina DCP- Discharge Planning Updated by [id number]: Pravin Doyle on 02/27/19 4:[address] Patient Name: MAGDALENA ALVAREZ Encounter No: [id number] : 1950 Primary Insurance: MEDICARE IP PART B ONLY Anticipated DC Date: 02-26-2019 Planned Disposition: Nursing Facility [facility] Cert External Planned Provider:[facility], LONG TERM CARE MEDICAID BED DCP follow-up note: CM RECEIVED CALL FROM BARTOLOME OF [facility], PT HAS BEEN ACCEPTED AT [facility] FOR SCHEDULE OF MWF, 1:45PM ARRIVAL TIME FOR 2PM CHAIR; FIRST APPOINTMENT 03-01-19 AT 1:15PM. CM CALLED WALTER OF [facility], , NOTIFIED OF ABOVE, [facility] MAY NOT HAVE TRANSPORT TOMORROW DUE TO HOLIDAY AND WILL SUPERVISOR ORE DRESSING PT AT 0900 ON 03-01-19, AND ACCEPT TO [facility] / TRANSPORT TO [facility]PATIENT DIALYSIS. CM NOTIFIED [facility], FAXED UPDATE AND OUTPATIENT DIALYSIS WELCOME LETTER TO [facility] [place] AT [phone]. COPY OF WELCOME LETTER PLACED IN PAPER CHART. BEDSIDE NURSE NOTIFIED. [facility] PLANS TO SUPERVISOR ORE DRESSING PT ON 03-01-19 AT 0900 AM. WHEN DISCHARGE IS RECEIVED, CALL NURSE REPORT TO [facility] AT [phone]; FAX DISCHARGE INFORMATION TO [facility] AT [phone]. [facility] TO ARRANGE VAN SUPERVISOR ORE DRESSING FOR 03-01-19 AT 0900AM. MARIN Avina DCP- Discharge Planning Updated by [id number]: Pravin Doyle on 02/25/19 2:[address] Patient Name: MAGDALENA ALVAREZ Encounter No: [id number] : 1950 Primary Insurance: MEDICARE IP PART B ONLY Anticipated DC Date: Planned Disposition: Nursing Facility [facility] Cert External Planned Provider: [facility], LONG TERM CARE MEDICAID BED DCP follow-up note: CM RECEIVED CALL FROM [facility], THEY WILL ACCEPT TOMORROW WHEN OUTPATIENT DIALYSIS CLINIC IS ARRANGED. CM NOTIFIED BARTOLOME CARVAJAL OF [facility] WHO INFORMED CM THAT PT HAS NOT YET BEEN ACCEPTED AT DIALYSIS CLINIC. THE CLINIC DOES HAVE THE REFERRAL. WHEN DIALYSIS UNIT IS ARRANGED AND DISCHARGE IS RECEIVED, CALL NURSE REPORT TO [facility] AT [phone]; FAX DISCHARGE INFORMATION TO [facility] AT [phone]. [facility] TO ARRANGE VAN SUPERVISOR ORE DRESSING. MARIN Avina Appended by Pravin Doyle on 02/25/2019 15:09 CDT: Patient notified and in agreement with discharge plan to [facility] in [place]. Important Message from Medicare provided and explained. Chaz Doyle, case management DCP- Discharge Planning Updated by [id number]: Pravin Doyle on 02/25/19 12:[address] Patient Name: MAGDALENA ALVAREZ Encounter No: [id number] : 1950 Primary Insurance: MEDICARE IP PART B ONLY Anticipated DC Date: Planned Disposition: Nursing Facility [facility] Cert External Planned Provider: [facility], LONG TERM CARE MEDICAID BED DCP follow-up note: CM FAXED REFERRAL UPDATE FOR ENTERTAINMENT REPORTER CARE PLACEMENT TO [facility], . CM WAITING ADMISSION DETERMINATION FROM [facility]. IF ACCEPTED, NOTIFRemi CARVAJAL OF [facility] FOR OUTPATIENT DIALYSIS CLINIC ARRANGEMENT. Pravin Doyle. CASE MANAGEMENT Appended by Pravin Doyle on 02/25/2019 13:28 CDT: [facility] ARRIVED TO EVALUATE PT, UPDATE PROVIDED. [facility] WILL MEET WITH PT AND EVALUATE FOR CUSTODIAL CARE ADMISSION TO [facility]. CM WAITING ADMISSION DETERMINATION FROM [facility]. IF ACCEPTED, NOTIFRemi CARVAJAL OF [facility] FOR OUTPATIENT DIALYSIS CLINIC ARRANGEMENT. Pravin Doyle. CASE MANAGEMENT DCP- Discharge Planning Updated by [id number]: Pravin Doyle on 02/22/19 12:[address] Patient Name: MAGDALENA ALVAREZ Encounter No: [id number] : 1950 Primary Insurance: MEDICARE IP PART B ONLY Anticipated DC Date: Planned Disposition: Nursing Facility [facility] Cert External Planned Provider: [facility], LONG TERM CARE MEDICAID BED DCP follow-up note: CM SPOKE TO PT IN ROOM REGARDING DISCHARGE PLANNING AND NEEDS, INFORMED CM THAT [facility] WILL NOT ACCEPT BACK THEY CANNOT PROVIDE OUTPATIENT DIALYSIS TRANSPORTATION. CM DISCUSSED OPTIONS. PT ASKED TO BE KEPT CLOSE TO [facility] POSSIBLE HER SISTER IS IN ENTERTAINMENT REPORTER CARE AT [facility] AND THEY WERE SHARING A ROOM PRIOR TO THIS HOSPITAL STAY. PT ASKED CM TO CALL HER SISTER, ROSIO ADAMES, AND GRANDDAUGHTER, IJEOMA BENITEZ. CHOICE SIGNED FOR NO PREFERENCE ON [facility] PROVIDER, IMPORTANT MESSAGE FROM MEDICARE PROVIDED AND EXPLAINED. CM RECEIVED CALL FROM PT'S SISTER, ROSIO ADAMES, , PROVIDED UPDATE. CM CALLED PT'S GRANDDAUGHTER, IJEOMA BENITEZ, , WHO INFORMED CM THAT SHE WOULD LIKE REFERRAL SENT TO [facility] IN [place] [facility] WAS SUPPOSED TO BE MOVING PT'S SISTER TO LIVE WITH PT AT [facility]. CM CALLED [facility], , SPOKE TO SHANNON WHO INFORMED CM THAT THE SENIOR PAINTER WOULD REVIEW REFERRAL FOR ADMISSION AND ASKED FOR REFERRAL TO BE FAXED. CM FAXED REFERRAL FOR CUSTODIAL CARE PLACEMENT TO [facility], . CM WAITING ADMISSION DETERMINATION FROM [facility]. IF ACCEPTED, NOTIFY BARTOLOME CARVAJAL OF [facility] FOR OUTPATIENT DIALYSIS CLINIC ARRANGEMENT. Pravin Doyle. CASE MANAGEMENT DCP- Discharge Planning Updated by [id number]: Pravin Doyle on 02/21/19 3:[address] Patient Name: MAGDALENA AVLAREZ Encounter No: [id number] : 1950 Primary Insurance: MEDICARE IP PART B ONLY Anticipated DC Date: Planned Disposition: Nursing Facility [facility] Cert External Planned Provider: TO BE DETERMINED DCP follow-up note: CM CALLED [facility], ASKED IF THEY CAN ACCOMODATE DIALYSIS TRANSPORTATION. [facility] WILL CHECK AND CALL CM BACK. CM CALLED BACK AFTER LUNCH, SPOKE TO [facility] WHO INFORMED CM THAT THEY CANNOT TRANSPORT TO DIALYSIS AND PT WILL NEED OTHER PLACEMENT. [facility] REPORTS FAMILY WAS THINKING [facility] IN [place]. RN CM HOUSE NOTIFIED BARTOLOME OF [facility]. CM ATTEMPTED TO SEE PT TO DISCUSS MOVING TO ANOTHER NURSING FACILITY, PT WAS NOT IN ROOM. PATIENT WILL NEED A NEW ENTERTAINMENT REPORTER CARE PLACEMENT. CM TO DISCUSS WITH PT FOR CHOICE AND BEGIN NEW PLACEMENT EFFORTS. Pravin Doyle, CASE MANAGEMENT DCP- Discharge Planning Updated by [id number]: Bere Cruz on 02/19/19 2:[address] CM contacted [facility] in [facility] [phone] . CM informed staff that patient has been started on dialysis since she has been admitted. CM asked if they currently have any dialysis patients or if they accept dialysis patients. Staff replied that they currently don't have any dialysis patients. She requested for CM to fax records and she will have internet systems administrator look them over and call back tomorrow after review. CM will continue to follow and assist as needed with discharge planning / needs. DCP- Discharge Planning Updated by [id number]: Bere Cruz on 02/18/19 4:[address] CM notified Bartolome Carvajal via email of new patient starting hemodialysis and that patient is resident at [facility] in [facility]. CM will continue to follow and assist as needed with discharge planning / needs. DCP- Discharge Planning Updated by [id number]: Bere Cruz on 02/14/19 6:[address] Patient Name: MAGDALENA ALVAREZ Admission Status: ER Accout number: [id number] Admission Date: 02-14-2019 : 1950 Admission Diagnosis: Attending: BENEDICTO CALLAWAY Current LOS: 1 Anticipated DC Date: Planned Disposition: Nursing Facility [facility] Primary Insurance: MEDICARE PART B ONLY Discharge Planning Comments: CM met with patient at bedside. Patient states she lives at [facility] in [facility]. ([place]) and plans to return there upon discharge. NICA completed for [place] Patient denies any discharge needs at this time. CM will continue to follow and assist as needed with discharge planning / needs. Hose Handler: Bere Cruz DCPIA - Discharge Planning Initial Assessment Updated by [id number]: Bere Cruz on 02/14/19 7:24 pm * Preadmission Environment Electric M[employer] * Facility Name [facility]. Mailing Address: [address] [place] [address]. Phone Number?: ?[phone] * ADLs Partial Dependent * List name and contact numbers for known caregivers / representatives who currently or will assist patient after discharge: IJEOMA BENITEZ - GRAND-DAUGHTER- [phone] * Verbal permission to speak to the caregivers and representatives has been obtained from the patient. N/A * Additional services required to return to the preadmission environment? No * Can the patient safely return to the preadmission environment? Yes * Has this patient been hospitalized within the prior 30 days at any hospital? No Coverage Notice Reviewer: [id number] Analilia Doyle Notice Issued Date-Time: 02/22/2019 9:50 Notice Type: IM Discharge Notice Notice Delivered To: Patient Relationship to Patient: Leather Grainer Name: Delivery Method: HAND - Hand Delivered Isha Days: Prior Verbal Notification: Recipient Understood Notice: Yes Recipient Signature: Yes Med Rec Note Co-signed by Attending: Coverage Notice Comment: Reviewer: LISA Doyle Notice Issued Date-Time: 02/22/2019 9:50 Notice Type: Patient Choice Letter Notice Delivered To: Patient Relationship to Patient: Leather Grainer Name: Delivery Method: HAND - Hand Delivered Isha Days: Prior Verbal Notification: Recipient Understood Notice: Yes Recipient Signature: Yes Med Rec Note Co-signed by Attending: Coverage Notice Comment: NO [facility] PREFERENCE Reviewer: [id number] Doyle Notice Issued Date-Time: 02/25/2019 14:50 Notice Type: IM Discharge Notice Notice Delivered To: Patient Relationship to Patient: Leather Grainer Name: Delivery Method: HAND - Hand Delivered Isha Days: Prior Verbal Notification: Recipient Understood Notice: Yes Recipient Signature: Yes Med Rec Note Co-signed by Attending: Coverage Notice Comment: Last DP export: 03/01/19 9:55 am Patient Name: MAGDALENA ALVAREZ Page [id number] at 1104 All edits/amendments must be made on the electronic document DICTATION DATE: 03/01/191102 MARKETING PLANNING MANAGER: RADHA 03/01/191102 RPT#: [id number] DC DATE: STATUS: ADM IN [facility] [address] [place] [address] END OF REPORT
--- NOTE | 2019-03-01 11:42 | NUR ---
DISCHARGE INSTRUCTIONS REVIEWED WITH PT AND ALL QUESTIONS ANSWERED. PIV REMOVED WITH CATHETER TIP INTACT. PT LEFT WITH [facility]
--- NOTE | 2019-03-08 16:06 | OP ---
PATIENT NAME: MAGDALENA ALVAREZ MEDICAL RECORD: [id number] :[birth year] LOCATION:D.M2 D.2138 ADMISSION DATE:02/14/19 SURGEON: MANUEL ZELAYA MD DATE OF OPERATION: 02/27/2019 PREOPERATIVE DIAGNOSES: 1. Malfunctioning HemoSplit catheter, it does not flush and draw adequately for hemodialysis. 2. End-stage renal disease. POSTOPERATIVE DIAGNOSES: 1. Malfunctioning HemoSplit catheter, it does not flush and draw adequately for hemodialysis. 2. End-stage renal disease. 3. Fibrin sheath around the HemoSplit catheter. PROCEDURES: 1. Nonselective left innominate venogram. 2. Balloon lysis of fibrin sheath. 3. Removal of HemoSplit catheter. 4. Placement of a new HemoSplit catheter via a separate entry site, 23 cm, cuffed dual-lumen hemodialysis catheter. 5. Immediate surgeon interpretation of the fluoroscopic images. SURGEON: Manuel Zelaya MD ADOBE FLEX DEVELOPER: None. BLOOD LOSS: Minimal. ANESTHESIA: Local with IV sedation. COMPLICATIONS: None. The risks, possible complications, and alternatives to the procedure were explained to the patient. She elects to proceed. The discussion specifically included, but was not limited to, bleeding requiring emergency reoperation, infection, pneumothorax, great vessel injury. No radiologist was present for this procedure. Static fluoroscopic images were obtained and are kept in the PACS system as well as cine images that were obtained. OPERATIVE COURSE: The patient was conveyed to the operating room electively on 02/27/2019. IV sedation was induced by the anesthesia staff. The left neck and left chest were sterilely prepped and draped. A local anesthetic was used to infiltrate the skin and subcutaneous tissues around the catheter tract as well as the exit site. An incision was accomplished around the exit site. I then withdrew back on the HemoSplit catheter. I advanced 0.035 Glidewire down one of the lumens of the HemoSplit catheter. Through the other lumen, I injected intravenous contrast and visualized this with digital subtraction. This revealed what appeared to be a fibrin sheath around the HemoSplit catheter. Another 0.035 Glidewire was advanced. HemoSplit catheter was removed in its entirety. OPERATIVE REPORT [id number] MAGDALENA ALVAREZ I advanced a 10-mm angioplasty balloon. Under fluoroscopy, I vigorously ran this down the innominate vein into the superior vena cava and back multiple times after inflation in order to lyse the fibrin sheath. I removed the angioplasty balloon. I loaded the new HemoSplit catheter over the Glidewires and tried to get it to advance down into the central venous system and this was not fruitful. I placed a 4-Norwegian angled diagnostic catheter over one of the 0.035 Glidewire and removed that Glidewire. Through the diagnostic catheter, I advanced an Amplatz wire and loaded it on to the HemoSplit catheter and tried to get it to advance down into the central venous system. This was not fruitful either. I removed all the endovascular hardware. Through a separate stick, which was a supraclavicular subclavian antegrade access to the subclavian vein, I advanced a 0.035 guidewire. This was visualized under fluoroscopy. An incision was accomplished around the guidewire. I then tunneled a 23-cm HemoSplit catheter from the chest incision to the neck incision. Over the guidewire, I dilated to a larger size. Dilator sheath was then advanced. The dilator and wire were removed. The tips of HemoSplit catheter were then advanced through the sheath and the sheath was removed. In order to ensure that the HemoSplit catheters had nice curve to them, I advanced a 0.035 Glidewire down for both lumens of the HemoSplit catheter. I then was removed the Glidewires. I flushed both lumens of the HemoSplit catheter. Both lumens flushed easily and aspirated dark, nonpulsatile blood. I then topped off both lumens of the HemoSplit catheter with the appropriate amount of concentrated heparin. The neck incision was closed with an interrupted intracuticular 3-0 Vicryl. The HemoSplit catheter exit site was closed with a horizontal mattress 2-0 nylon, another horizontal mattress 2-0 nylon. The flange of the HemoSplit catheter was sutured to the underlying skin with 2-0 nylons. Sterile dressings were applied. The patient was then conveyed to the post-anesthesia care unit, where she was in stable condition. A chest x-ray is pending. TRANSINT:[id number] Voice Confirmation ID: [id number] DOCUMENT ID: [id number] MANUEL ZELAYA MD at 1606 CC: BENEDICTO CALLAWAY MD and YADIRA DUONG [phone] DICTATION DATE: 02/27/191824 RAIL MAINTENANCE WORKER: 02/27/19 2321 DIS IN 03/01/19 [facility] [address] [place] [place] [id number]
== END 2019-03-01 11:43 | DRG 871 ==
LOC: D.ER 14:59 → D.M2 15:56 → D.ICU 15:56 → D.M2 02-19 17:16
PROVIDERS: Family Medicine; Internal Medicine Nephrology; ADMIT Internal Medicine Nephrology; ATTEND Internal Medicine Nephrology
PROC: 05HM33Z Insertion of Infusion Device into Right Internal Jugular Vein, Percutaneous Approach (ICD-10-PCS; principal; 2019-02-15)
PROC: 0JH63XZ Insertion of Tunneled Vascular Access Device into Chest Subcutaneous Tissue and Fascia, Percutaneous Approach (ICD-10-PCS; 2019-02-22)
PROC: 0JPT3XZ Removal of Tunneled Vascular Access Device from Trunk Subcutaneous Tissue and Fascia, Percutaneous Approach (ICD-10-PCS; 2019-02-27)
PROC: B51V1ZZ Fluoroscopy of Other Veins using Low Osmolar Contrast (ICD-10-PCS; 2019-02-27)
PROC: 0JH63XZ Insertion of Tunneled Vascular Access Device into Chest Subcutaneous Tissue and Fascia, Percutaneous Approach (ICD-10-PCS; 2019-02-27)
DX: A41.9 Sepsis, unspecified organism (principal); K85.90 Acute pancreatitis without necrosis or infection, unspecified; R65.21 Severe sepsis with septic shock; N17.0 Acute kidney failure with tubular necrosis; N18.6 End stage renal disease; I12.0 Hypertensive chronic kidney disease with stage 5 chronic kidney disease or end stage renal disease; E44.0 Moderate protein-calorie malnutrition; N39.0 Urinary tract infection, site not specified; E87.2 Acidosis; T82.41XA Breakdown (mechanical) of vascular dialysis catheter, initial encounter; E83.39 Other disorders of phosphorus metabolism; E83.42 Hypomagnesemia; I95.9 Hypotension, unspecified; D64.9 Anemia, unspecified; E66.9 Obesity, unspecified; E79.0 Hyperuricemia without signs of inflammatory arthritis and tophaceous disease; E11.22 Type 2 diabetes mellitus with diabetic chronic kidney disease; Z99.2 Dependence on renal dialysis; K21.9 Gastro-esophageal reflux disease without esophagitis